=== PATIENT | male | born 1935 | race Caucasian/White ===

== ENCOUNTER 2017-06-04 12:58 | Inpatient (IN) | payer MEDICARE ==
[2017-06-04 13:25] VITALS: BP 131/64
[2017-06-04] MEDS ORDERED: Haloperidol Lactate 5 mg/mL 1mL Vial ONE (14:00)
[2017-06-04] MEDS ORDERED: Haloperidol Lactate 5 mg/mL 1mL Vial IM ONE (15:00)
[2017-06-04] MEDS ORDERED: Maalox 30 mL Cup PO PRN (15:45)
[2017-06-04] MEDS ORDERED: Magnesium Hydroxide (MOM) 30 mL UDC PO PRN (15:45)
[2017-06-05] MEDS: Multivitamin Tab PO SCH (08:41)
--- NOTE | 2017-06-05 10:50 | History & Physical ---
ADMIT DATE: 06/05/2017 INTERNAL MEDICINE CONSULT REFERRING PHYSICIAN: Dr. Hackett. REASON FOR CONSULT: Medical management. HISTORY OF PRESENT ILLNESS: The patient is an 82-year-old male with history of Alzheimer's dementia, cirrhosis per medical records, who was wandering away from [facility] where he lives and was transferred to a local ER where he was evaluated and monitored. Apparently, there was also aggressive behavior towards staff, but no other information was given. The patient has been transferred to this facility and admitted to the [facility] for further management and care. He is currently sitting in a Radha chair, refusing to provide any history. He is asleep and appears to be comfortable. PAST MEDICAL HISTORY: As noted above, presumed glaucoma. PAST SURGICAL HISTORY: Unknown. FAMILY HISTORY: Unknown, but likely noncontributory to this admission. SOCIAL HISTORY: Unknown. He lives in a snf facility. ALLERGIES: NKDA. OUTPATIENT MEDICATIONS: Docusate sodium 100 mg every day, Xalatan drops 1 drop to each eye every day. REVIEW OF SYSTEMS: A good review of systems was not able to be done given patient's condition. PHYSICAL EXAMINATION: VITAL SIGNS: Temperature 98.3, pulse 78, respirations 20, BP 121/66, satting 98% on room air. GENERAL: He is a well-developed, thin, elderly male who appears to be in no acute distress. He is asleep, refusing to answer questions. HEENT: Normocephalic, atraumatic. NECK: No JVD or LAD. No carotid bruits. CARDIOVASCULAR: Regular rate and rhythm without any murmurs. LUNGS: Clear to auscultation bilaterally. ABDOMEN: Soft, supple. It is nontender, nondistended. There is normoactive bowel sounds. SKIN: There is skin ecchymosis on both lower extremities. There are abrasions on the right lateral aspect of the leg and also on the left lateral and medial aspect of the leg close to the knee. There is also an abrasion on the left upper extremity. All of these abrasions appear to be noninfected and clean. LABORATORY DATA: See from the ER, his platelet count is 134, hematocrit is 35 with an MCV of 105. White count 5.2. Urinalysis was essentially within normal limits. Ammonia level 18. Urine toxicology was negative. BUN 21, chloride 104, CO2 26, glucose 120, sodium 142 with a gap of 17. Of note, he was given 1 liter of normal saline. DIAGNOSTICS: There was a CT of the head done with no results available at this time. ASSESSMENT: 1. Acute psych decompensation. 2. Alzheimer's dementia with behavioral disorder. 3. History of cirrhosis. 4. Mild dehydration with elevated anion gap. 5. Microcytic anemia. PLAN: The patient has been admitted to the [facility] floor for further psychiatric treatment and management. The patient will be kept on his current medications as scheduled. I will start him on folic acid, thiamine and will also ask for Silvadene cream to be placed twice a day on his skin abrasions. Will encourage increase water/fluid intake. [facility]# [id number] MTDAngelica
--- NOTE | 2017-06-06 02:31 | Psychosocial Evaluation ---
DATE OF SERVICE: 06/05/2017 JUSTIFICATION FOR HOSPITALIZATION: An 82-year-old male brought to the hospital, apparently was combative, struck out at multiple staff members. Required emergency medications. On [id number], the patient is refusing interview, not speaking with me. I have very little information at this time. It is unclear if he has an underlying history of dementia and this is the first time he is at the hospital. He is currently on hold 5150. PAST PSYCHIATRIC HISTORY: Unknown. FAMILY HISTORY: Unknown. SOCIAL HISTORY: The patient refusing to answer, but he has an address in the [facility]. It is unclear what his social support system is. There is a listed on the face sheet. MEDICATIONS: Noted. Currently on p.r.n. medications. He did get an emergency order of medications yesterday. MENTAL STATUS EXAMINATION: Stated age. Sleeping, but arousable, refusing to speak with me. Thought processes unknown. Thought content unknown. Unable to assess. Insight and judgment diminished. Impulse control is questionable to poor. PROVISIONAL DIAGNOSES: Noted history of dementia. Under medical: Chronic liver disease with cirrhosis, hypertension, congestive heart failure, unsteady balance. ASSESSMENT: The patient requiring inpatient hospitalization, unruly, agitated behaviors, refusing to speak with me. PLAN: We will add Aricept and Namenda given his documented history of dementia. We will continue to monitor. The patient may need antipsychotic medications if he remains unruly and combative, but we will try to avoid if possible. TREATMENT PLAN: Includes group as well as milieu therapy. CONDITIONS FOR DISCHARGE: Improved mood, improved affect, better control of his agitation. [facility]# [id number]
[2017-06-06] MEDS: Multivitamin Tab PO SCH (08:57)
[2017-06-06] MEDS ORDERED: Magnesium Hydroxide (MOM) 30 mL UDC PO PRN (11:54)
[2017-06-07] MEDS: Multivitamin Tab PO SCH (08:11)
--- NOTE | 2017-06-07 09:32 | Progress Notes ---
DATE: SUBJECTIVE: The patient was seen, chart reviewed, and discussed with staff. The patient continues to be quite irritable, confused, unable to answer questions in a coherent manner. Continues to be disoriented on all spheres. He has, however, been compliant with medications and generally redirectable on the unit. PLAN: The patient continues to be very confused, disoriented, so that he will require inpatient care center treatment. We will monitor patient on a daily basis for response and titrate meds as needed. JOB# [id number]
--- NOTE | 2017-06-07 22:22 | Progress Notes ---
DATE: SUBJECTIVE: The patient was seen, chart reviewed and discussed with staff. The patient continues to be very irritable, confused, disorganized, unable to answer questions in a meaningful manner. He has, however, been compliant with medications. PLAN: The patient continues to be very confused, unable to make a safe or realistic discharge plan. It was felt that he will require continued inpatient care for stabilization and treatment. We will monitor patient on a daily basis for his response to medications and titrate as needed. [facility]# [id number]
[2017-06-08] MEDS: Multivitamin Tab PO SCH (09:14)
--- NOTE | 2017-06-09 02:43 | Progress Notes ---
DATE: 06/08/2017 SUBJECTIVE: Case was discussed with staff of the patient and reviewed records. This is an 82-year-old male who was admitted on 06/04/2017. He was combative, striking out at multiple staff members, requiring emergency medication, refusing interview, not speaking, very little information when I talked to him, he was hard of hearing, unable to participate in a meaningful conversation. The staff reports he does not eat well and sleep varies. He continues to be unpredictable, impulsive, needing redirection, asking to be discharged; however, he is still not ready to go because of his combative, aggressive behavior. He has been on Aricept 5 mg at bedtime with no side effects, no sedation, no nausea and he lives in ____ senior care and we will continue outpatient group therapy, milieu therapy, adjusting the medication as needed. The patient's hold was extended yesterday on the ground of danger to self and others and we will continue the patient in group therapy, milieu therapy, adjust medication as needed. JOB# [id number]
[2017-06-09] MEDS: Multivitamin Tab PO SCH (08:12)
--- NOTE | 2017-06-09 23:07 | Progress Notes ---
DATE: 06/09/2017 SUBJECTIVE: Case was discussed with staff of the patient and reviewed records. The patient continues to be confused, continues to have poor insight, he is demented, confused, unable to make safe plan for self-care, needing redirection. The staff reports that he is not eating much. He is a poor historian. PLAN: I will be initiating Remeron on him to help with his appetite and depression that may be contributing to his lack of appetite. I will start him at 7.5 mg at bedtime. So far no side effects with the rest of his medications. We will continue working also on placement for this patient and we will continue to work with the patient in group therapy, milieu therapy, adjust medication as needed. JOB# [id number]
[2017-06-10] MEDS: Multivitamin Tab PO SCH (08:45)
--- NOTE | 2017-06-10 23:06 | Progress Notes ---
DATE: 06/10/2017 SUBJECTIVE: Case was discussed with staff of the patient and reviewed records. The patient continues to be confused, demented, unable to make safe plan for self-care. Continues to have poor insight. Continues to be unable to make safe plan for self-care. We are working on placement for this patient. Also, I will be adding Remeron to his medication, which I added yesterday. Apparently, the computer did not take it for some reason, I do not see it on the computer. His lab work shows only high blood sugar at 97. We will continue the patient in group therapy, milieu therapy, and adjust the medications as needed. JOB# [id number]
[2017-06-11] MEDS: Multivitamin Tab PO SCH (08:21)
--- NOTE | 2017-06-11 22:33 | Progress Notes ---
DATE: 06/11/2017 Case was discussed with staff of the patient, reviewed records. The patient continues to be unpredictable, impulsive, very confused. He had ____ yesterday and during the program with grave disability, continues to have poor insight. No side effects with the medication, no sedation, no nausea, no extrapyramidal symptoms. We will continue to work with the patient in group therapy, milieu therapy, and adjust medications as needed. JOB# [id number]
[2017-06-12] MEDS: Multivitamin Tab PO SCH (08:42)
--- NOTE | 2017-06-12 23:08 | Progress Notes ---
DATE: 06/12/2017 The case was discussed with staff of the patient, reviewed records. The patient continues to be confused, demented. Continues to be unable to make safe plan for self-care. Continues to have poor insight about the whole process. He is sleeping well, eating well, has to be prompted though. He has been compliant with the medication with no side effects, no sedation, no nausea, and no extrapyramidal symptoms. I will be increasing his Namenda dose to 5 mg twice a day, also on Aricept 5 mg at bedtime and Remeron 75 mg at bedtime. I will continue to work with the patient in group therapy, milieu therapy, adjust the medication as needed. JOB# [id number]
[2017-06-13] MEDS: Multivitamin Tab PO SCH (09:50)
[2017-06-13] MEDS ORDERED: Lactulose 10 Gm/15 mL 30mL UDC PO PRN (16:03)
[2017-06-13] MEDS ORDERED: Lactulose 10 Gm/15 mL 30mL UDC PO ONE (16:08)
--- NOTE | 2017-06-13 21:49 | Progress Notes ---
DATE: The patient was seen and evaluated. The patient's chart reviewed. She was initially brought in here. She is an 82-year-old female. She has struck out at multiple staff members and required emergent medications. On today's [id number] evaluation, the patient continues to be disorganized, confused in a Radha chair, easily derailed conversation. MENTAL STATUS EXAMINATION: Easily derails conversation, disengaged. ASSESSMENT AND PLAN: The patient is an 82-year-old male who continues to need a lot of redirection for simple redirections, will continue with primary psychiatrist's treatment plan and goals, which included the following: Aricept 5 mg a day, Namenda 5 mg p.o. b.i.d., mirtazapine 7.5. JOB# [id number]
--- NOTE | 2017-06-14 09:28 | Diagnostic Imaging Report ---
KUB single view HISTORY: Abdominal pain. COMPARISON: None FINDINGS: Gas distended loops of bowel are seen including small bowel loops and there is of small bowel wall thickening. Postsurgical change right upper quadrant are noted. Degenerative changes of spine are noted with scoliosis. IMPRESSION: Gaseous distended loops of bowel including primarily small bowel loops with areas of small bowel wall thickening. Findings may be due to infectious/inflammatory process of the small bowel. A partial distal obstructive small bowel process cannot be excluded. Clinical correlation follow-up is recommended. If indicated short-term follow-up CT with oral contrast may be obtained for further assessment. Evidence of prior cholecystectomy.
[2017-06-14] MEDS: Multivitamin Tab PO SCH (09:32)
--- NOTE | 2017-06-14 19:46 | Psychosocial Evaluation ---
DATE OF SERVICE: 06/14/2017 The patient was seen and evaluated. The patient's chart reviewed. No acute reported overnight by the nursing staff. The patient's nursing staff reporting the patient has been stable. On uuri-mi-efmu evaluation, the patient observed, continued to be residual, disorganized on the Radha chair who becomes easily irritable upon awakening and refused to be engaged. MENTAL STATUS EXAMINATION: Disengaged and disorganized. ASSESSMENT AND PLAN: An 82-year-old male with severe dementia with behavior disturbances. We will continue with the current medications, which include Namenda, Aricept, and mirtazapine to continue to target the patient still residual behavior disturbances associated with the dementia. JOB# [id number]
[2017-06-15] MEDS: Multivitamin Tab PO SCH (08:09)
--- NOTE | 2017-06-15 23:34 | Progress Notes ---
DATE: 06/15/2017 Case discussed with staff of the patient, reviewed records. The patient did have abdominal KUB that showed inflammatory process small-bowel, partial distal suspected small-bowel process cannot be excluded. Clinical correlation and followup is recommended. I recommended also CT with oral contrast may be obtained for further assessment. No evidence of prior cholecystectomy. The patient was seen by Dr. Cook. So far, the patient continues to be confused and isolating, continues to be unpredictable, impulsive, needing redirection, and disorganized, but he is demented and confused. No side effects of the medication. No sedation. No nausea. He is on Aricept 5 mg at bedtime, Namenda 5 mg twice a day since 06/12/2017, and he is on Remeron 7.5 mg at bedtime. We will continue to have the patient in group therapy, milieu therapy, and adjust medications as needed. JOB# [id number]
[2017-06-16] MEDS: Multivitamin Tab PO SCH (09:58)
--- NOTE | 2017-06-16 12:40 | Diagnostic Imaging Report ---
Exam: CT examination abdomen pelvis HISTORY: Abdominal distention pain Total DLP equals 514 CTDI equals and 0.0. Findings: Multiple contiguous thin section of the abdomen pelvis were obtained from lower thorax to pubic symphysis without the administration of contrast material therefore the study is limited. No prior studies available comparison. The study demonstrates the predominantly left basilar pneumonia with superimposed effusion. Right basilar pneumonic infiltrate is noted. There is a large amount of ascitic fluid in the abdomen. Cirrhotic changes of liver parenchyma. There is evidence of previous cholecystectomy. Diffuse vascular calcification identified. The spleen is enlarged. The stomach distended with fluid and air content Large amount of fecal content is noted throughout the colon. The pancreas demonstrates calcifications most likely from prior inflammatory changes The kidneys demonstrate no evidence of obstructive uropathy. There is evidence for nonobstructing left renal calculus measuring 1 mm diameter. Distention small bowel loops consistent with ileus. There is evidence of diverticular disease without diverticulitis. The urinary bladder is distended. There is evidence for a left inguinal mass extending into the scrotum with a multiple metallic clips most likely represent prior surgery clinical correlation is recommended Bony structures demonstrate no evidence for lytic or blastic changes. Degenerative changes of lumbar sacral spine appreciated. 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
[2017-06-16] MEDS: POLYETHYLENE GLYCOL 3350 17 GM PACK PO SCH (13:49)
[2017-06-16] MEDS ORDERED: Fleet Enema 135 mL RC PRN (18:12)
[2017-06-16] MEDS: Albuterol/Ipratropium Neb 3 ML AERS HHN SCH ×2 (19:00→23:27)
--- NOTE | 2017-06-16 21:56 | Progress Notes ---
DATE: 06/16/2017 Case was discussed with staff of the patient, reviewed records. The patient is having a CT scan without contrast today as recommended by the Radiology Department. His son came to take him yesterday; however, I have the staff explained to him the situation. It can be with oral contrast to rule out any obstruction. The patient continues to be confused, demented, unable to participate in meaningful conversation or make safe plan for self-care and so far he is compliant with the medication with no side effects and we will continue to work with the patient in group therapy, milieu therapy, adjust medication as needed. JOB# [id number]
[2017-06-17] MEDS: Albuterol/Ipratropium Neb 3 ML AERS HHN SCH ×6 (02:22→22:36)
[2017-06-17] MEDS: POLYETHYLENE GLYCOL 3350 17 GM PACK PO SCH (08:49)
[2017-06-17] MEDS: Multivitamin Tab PO SCH (08:50)
--- NOTE | 2017-06-17 22:05 | Progress Notes ---
DATE: 06/17/2017 SUBJECTIVE: Case was discussed with staff of the patient and reviewed records. The patient has a CT of the abdomen and pelvis because of abdominal distention and pain that showed also left basilar pneumonia with superimposed effusion and right basilar pneumonia and infiltrate was noted, large amount of ascitic fluid in the abdomen, cirrhotic changes in the liver parenchyma with evidence of previous cholecystectomy and also large amount of fecal content is noted throughout the colon, so at this point the patient is still confused, unable to make a safe plan for self-care. He is on Aricept 5 mg at bedtime that was initiated by Dr. Rangel. He is on antibiotic started by Dr. Cook yesterday, Levaquin 500 mg daily and Namenda 5 mg twice a day and Remeron 7.5 mg at bedtime with multivitamin and so far no side effects with the medication, no sedation, no nausea. So the patient is currently not ready to go to a lesser level of care because of his complicating medical conditions that need to be addressed by Dr. Cook as Dr. Cook is taking care of it and we will continue to work with the patient in group therapy, milieu therapy, adjust medication as needed. JOB# [id number]
[2017-06-18] MEDS: Albuterol/Ipratropium Neb 3 ML AERS HHN SCH ×6 (03:39→23:28)
[2017-06-18] MEDS: POLYETHYLENE GLYCOL 3350 17 GM PACK PO SCH (08:36)
[2017-06-18] MEDS: Multivitamin Tab PO SCH (08:36)
[2017-06-18] MEDS ORDERED: Probiotic Screen MC PRN (15:30)
[2017-06-19] MEDS: Albuterol/Ipratropium Neb 3 ML AERS HHN SCH ×6 (03:21→23:36)
--- NOTE | 2017-06-19 03:53 | Progress Notes ---
DATE: 06/18/2017 Case discussed with staff and the patient, reviewed records. The patient had pneumonia. He also had some obstruction in his bowels, so at this point from a psychiatric point of view, he can go; however, I do not have any plan to discharge him until Dr. Cook who is his medical doctor decide that he is okay to go to a lesser level of care. The patient is sleeping better, eating better. He is still confused, demented, unable to make safe plan for self-care. He was started on antibiotic. He is compliant with the medication, no side effects, no sedation, no nausea and he is on Aricept 5 mg at bedtime and Namenda 5 mg twice a day that was increased last week and Remeron 7.5 mg at bedtime. I will continue to work with the patient in group therapy, milieu therapy, and adjust medications as needed. JOB# [id number]
[2017-06-19] MEDS: Lactobacillus Rhamnosus GG 15 Billion CFU CAP.SPRINK PO SCH (08:48)
[2017-06-19] MEDS: POLYETHYLENE GLYCOL 3350 17 GM PACK PO SCH (08:48)
[2017-06-19] MEDS: Multivitamin Tab PO SCH (08:49)
--- NOTE | 2017-06-19 11:44 | Discharge Summary ---
DATE OF DISCHARGE: 06/19/2017 IDENTIFYING INFORMATION: The patient is an 82-year-old male. HISTORY OF PRESENT ILLNESS: The patient was brought to the hospital because of being combative and struck out at staff members, required emergency medication. He came from [place]. According to the staff, refusing interview, not speaking with the psychiatrist Dr. Rangel information given. He is demented, confused. COURSE IN THE HOSPITAL: The patient was started on Aricept 5 mg at bedtime and later on I added Namenda, increased the dose to 5 mg twice a day, also add Remeron 75 mg at bedtime. The patient became more calm and cooperative. He was sleeping well, eating well. We tried to discharge him; however, he was found to have bowel obstruction, ascites and basal pneumonia and I talked to Dr. Cook that was a few days prior to his discharge. I talked to him this morning prior to discharge and I asked him if he is ready to go to a lesser level of care. He said there is nothing more he can do for him that he already gave him all antibiotic. He needs to follow up with his doctor. The patient was not acting anyway dangerous, sleeping well, eating well. So Dr. Cook not felt the patient needed to stay any longer be moved to the med-surg unit. He put him on Levaquin 500 mg daily and patient also was on multivitamin and Flomax, thiamine, docusate for his bowel. he could be discharged to a lesser level of care with the approval of Dr. Cook and his recommendations will be followed. FINAL DIAGNOSES: AXIS I: Dementia with behavior disturbances. MEDICAL DIAGNOSES: As per Dr. Cook. The patient had a bowel obstruction, mild and infection, lung infection. The patient will follow up with the psychiatrist, primary care physician and GI. EXPECTED OUTCOME: Stable if the patient complies with the above. JOB# [id number]
[2017-06-20] MEDS: Albuterol/Ipratropium Neb 3 ML AERS HHN SCH ×4 (03:35→14:48)
[2017-06-20] MEDS: Lactobacillus Rhamnosus GG 15 Billion CFU CAP.SPRINK PO SCH (09:11)
[2017-06-20] MEDS: POLYETHYLENE GLYCOL 3350 17 GM PACK PO SCH (09:11)
[2017-06-20] MEDS: Multivitamin Tab PO SCH (09:11)
--- NOTE | 2017-06-20 15:51 | Progress Notes ---
DATE: 06/20/2017 Case was discussed with staff of patient, reviewed records. Also discussed the care with his son yesterday as he was running about places that he can take him. He refused to have him go to [facility] or [facility] that accepted him and I gave him some ideas, discussed with him the situation and the medication he takes. The patient is very frail, cannot even take care of his basic needs. He is unable to carry on a conversation. Also, I discussed with him his medical condition. As per Dr. Cook, he has bowel obstruction, ascites. He is unpredictable, confused, easily agitated, and general anesthesia he was doing better, was supposed to go. He is on only Remeron 75 mg at bedtime and Namenda 5 mg twice a day with no side effects and he is not on any antipsychotic and working on discharge plan as he is ready to go to a lesser level of care. We will continue to work with the patient in group therapy, milieu therapy, adjust medication as needed. JOB# [id number]
[2017-06-21 14:13] LABS: HEMATOCRIT 33.7 % (41.0-60); HEMOGLOBIN 11.6 gm/dL (12-16); MEAN CORPUSCULAR HEMOGLOBIN 35.9 pg (27.0-31.0); MEAN CORPUSCULAR HGB CONC 34.5 pg (28.0-36.0); PLATELET COUNT 66 Th/cmm (150-400); RED BLOOD COUNT 3.24 Mil/cmm (3.80-5.80); RED CELL DISTRIBUTION WIDTH 14.5 % (11.5-20.0); WHITE BLOOD COUNT 4.9 Th/cmm (4.8-10.8)
[2017-06-21 14:21] LABS: MANUAL DIFF REQUIRED? YES
[2017-06-21 14:26] LABS: ALB/GLOB RATIO 0.8 (1.0-1.8); ALBUMIN 2.4 gm/dL (4.2-5.5); ALKALINE PHOSPHATASE 114 U/L (34-104); ANION GAP 10.5 (7.0-16.0); BILIRUBIN,TOTAL 2.5 mg/dL (0.3-1.0); BUN - UREA NITROGEN 43 mg/dL (7-25); CALCIUM SERUM 9.3 mg/dL (8.6-10.3); CARBON DIOXIDE 23.2 mEq/L (21.0-31.0); CHLORIDE 113 mEq/L (98-107); GLUCOSE 96 mg/dL (70-105); POTASSIUM SERUM 3.7 mEq/L (3.5-5.1); SGOT 93 U/L (13-39); SGPT/ALT 41 U/L (7-52); SODIUM SERUM 143 mEq/L (136-145); TOTAL PROTEIN,SERUM 5.6 gm/dL (6.0-8.3)
[2017-06-21 14:34] LABS: BAND NEUTROPHILE 8 % (0-10); LYMPHOCYTE 3 % (20-50); MONOCYTE 3 % (2-10); NEUTROPHILS 86 % (40-80); PLATELET ESTIMATE DECREASED PLATELETS (NORMAL); TOTAL CELLS COUNTED 100
== END 2017-06-20 18:16 | DRG 885 ==
LOC: GERO 12:58
PROVIDERS: ADMIT Psychiatry & Neurology Psychiatry; ATTEND Psychiatry & Neurology Psychiatry
DX: F23 Brief psychotic disorder (principal); F02.81 Dementia in other diseases classified elsewhere, unspecified severity, with behavioral disturbance; I11.0 Hypertensive heart disease with heart failure; J18.9 Pneumonia, unspecified organism; K56.609 Unspecified intestinal obstruction, unspecified as to partial versus complete obstruction; R18.8 Other ascites; G30.9 Alzheimer's disease, unspecified; I50.9 Heart failure, unspecified; E86.0 Dehydration; K74.60 Unspecified cirrhosis of liver; D50.9 Iron deficiency anemia, unspecified; R26.81 Unsteadiness on feet; Z90.49 Acquired absence of other specified parts of digestive tract
CPT/HCPCS: 36415-UA; 74000-TC; 80053-TC; 82948-90; 85007-TC; 85025-TC; 85027-TC; 94640; 94760; 97530; J1200; J1630; J2060; X3904; Z7610

== ENCOUNTER 2017-06-20 18:33 | Inpatient (IN) | payer MEDICARE ==
[2017-06-20] MEDS ORDERED: Sodium Chloride 0.9% 1,000 ML IV ONE ×3 (19:28→22:57)
[2017-06-20] MEDS ORDERED: Levofloxacin 500mg/100mL 500 MG/100 ML BAG IV SCH (19:30)
[2017-06-20 20:13] VITALS: BP 63/38
[2017-06-20] MEDS ORDERED: Fleet Enema 135 mL RC PRN (20:24)
[2017-06-20] MEDS: cefTRIAXone 1 GM in Sodium Chloride 0.9% 50 ML IV SCH (21:32)
[2017-06-20] MEDS ORDERED: Maalox 30 mL Cup PO PRN (21:53)
[2017-06-20] MEDS: Azithromycin 500 MG in Sodium Chloride 0.9% 250 ML IV SCH (22:38)
[2017-06-20] MEDS ORDERED: Lactated Ringer 1,000 ML IV SCH (23:00)
[2017-06-21] MEDS: Albuterol/Ipratropium Neb 3 ML AERS HHN SCH ×3 (07:12→18:59)
[2017-06-21] MEDS: Lactobacillus Rhamnosus GG 15 Billion CFU CAP.SPRINK PO SCH (08:54)
[2017-06-21] MEDS: Multivitamin Tab PO SCH (08:55)
[2017-06-21] MEDS: POLYETHYLENE GLYCOL 3350 17 GM PACK PO SCH (08:55)
--- NOTE | 2017-06-21 09:44 | Diagnostic Imaging Report ---
Portable chest x-ray HISTORY: Pneumonia The heart appears enlarged. Density noted over the right and left lower hemithoracic region suggesting pleural effusions. Hazy infiltrates suggested within the right lung. IMPRESSION: 1. Findings suggesting probable bilateral pleural effusions along with infiltrate within the right lung.
[2017-06-21] MEDS ORDERED: Albuterol/Ipratropium Neb 3 ML AERS HHN SCH (14:37)
[2017-06-21] MEDS ORDERED: Sodium Chloride 0.9% 250 ML IV ONE (14:51)
[2017-06-21 18:10] LABS: URINE MICROSCOPIC INDICATED? YES; URINE SOURCE FOLEY PORT
[2017-06-21 18:11] LABS: URINE BILIRUBIN NEGATIVE (NEGATIVE); URINE BLOOD NEGATIVE (NEGATIVE); URINE GLUCOSE (UA) NEGATIVE (NEGATIVE); URINE KETONE NEGATIVE (NEGATIVE); URINE LEUKOCYTE ESTERASE NEGATIVE (NEGATIVE); URINE NITRATE NEGATIVE (NEGATIVE); URINE PROTEIN TRACE mg/dL (NEGATIVE)
[2017-06-21] MEDS: D5-0.9%NS 1,000 ML IV SCH (18:12)
[2017-06-21 18:50] LABS: URINE BACTERIA FEW /hpf (NONE SEEN); URINE CLARITY CLEAR (CLEAR); URINE COLOR AMBER; URINE EPITHELIAL CELLS OCCASIONAL /lpf (FEW); URINE RBC 0-2 /hpf (0-5)
[2017-06-21] MEDS ORDERED: Norepinephrine 4 mg/4mL Vial IV ONE (19:37)
--- NOTE | 2017-06-21 20:06 | History & Physical ---
ADMIT DATE: 06/20/2017 HISTORY OF PRESENT ILLNESS: This is an 82-year-old male with past medical history of psychosis who was [facility] because of hypotension. A few hours prior to admission, the patient was found to be very lethargic by the [facility] staff. His systolic blood pressure was in the 60s. He was then transferred to ICU. PAST MEDICAL HISTORY: 1. Psychosis. 2. Alzheimer dementia. 3. Ascites. 4. Liver cirrhosis. 5. Ileus. 6. Diverticulosis. CURRENT MEDICATIONS: He is currently on acetaminophen, albuterol/ipratropium, azithromycin, ceftriaxone, docusate sodium, donepezil, folic acid, lorazepam, tamsulosin, vitamin B1, and zolpidem. ALLERGIES: No known drug allergies. SOCIAL AND FAMILY HISTORY: I was not able to obtain from the patient because he is very lethargic at the present time. REVIEW OF SYSTEMS: Again, I was not able to decipher this directly from the patient because of present mental status. PHYSICAL EXAMINATION: GENERAL: The patient is very stuporous, poorly responsive, mild tachypnea. VITAL SIGNS: Blood pressure is 92/44, pulse 94, and temperature 94 degrees. SKIN: Very poor turgor, warm, no rash, no jaundice appreciated. HEENT: Head normocephalic, atraumatic. Eyes: Extraocular muscles intact. Pupils equal, round, reactive to light and accommodates. Anicteric sclerae. Pale conjunctivae. Nose, midline nasal septum. Mouth: Dry mucosa. Poor dentition. NECK: Supple, no adenopathy, no thyromegaly, no bruits. Trachea palpated in the midline. CHEST AND CARDIOVASCULAR: S1, S2. No rub, murmur, no gallop appreciated. Point of maximal impulse fifth intercostal space, left midclavicular line. No abdominal or femoral bruits appreciated. LUNGS: Equal expansion. No use of accessory muscles. No supraclavicular retractions. Decreased breath sounds, scattered rhonchi, no rales nor wheezes appreciated. ABDOMEN: Mildly globular, soft. Positive for bowel sounds. No bruits either diastolic or systolic. RECTAL: Lax sphincter tone. GENITOURINARY: Normal appearing male genitalia. MUSCULOSKELETAL: No effusions present in his joints with limited range of motion. EXTREMITIES: No evidence of edema, cyanosis, or clubbing with palpable femoral, popliteal, and dorsalis pedis pulses. NEUROLOGIC: The patient remains stuporous, so I was not able to pursue further my neuro exam. LABORATORY DATA: Did reveal a white count of 4.9, hemoglobin 11.6, hematocrit 33.7, and platelets 66. Sodium 143, potassium 3.7, chloride 113, CO2 23, glucose 96, BUN 43, creatinine 1, calcium 9.3, albumin 2.4, and total bilirubin 2.5. IMPRESSION: 1. Shock, possibly septic in nature. 2. Sepsis could be from urinary tract infection or even aspiration pneumonia. 3. Psychosis. 4. Alzheimer dementia. 5. Ascites. 6. Liver cirrhosis. 7. Ileus. 8. Diverticulitis. 9. Severe malnutrition. 10. 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 PLAN: 1. Continue with IV fluids. 2. Pressors as needed. 3. Turner culture. 4. Broad-spectrum antibiotics. 5. Steve Naylor. JOB# [id number]
[2017-06-21] MEDS: cefTRIAXone 1 GM in Sodium Chloride 0.9% 50 ML IV SCH (21:20)
[2017-06-21] MEDS: Azithromycin 500 MG in Sodium Chloride 0.9% 250 ML IV SCH (21:22)
[2017-06-22] MEDS: D5-0.9%NS 1,000 ML IV SCH ×2 (02:12→09:36)
[2017-06-22 05:17] LABS: MANUAL DIFF REQUIRED? YES; MEAN PLATELET VOLUME 6.8 fl; RED BLOOD COUNT 3.26 Mil/cmm (3.80-5.80)
[2017-06-22 05:26] LABS: HEMOGLOBIN 11.9 gm/dL (12-16); MEAN CELL VOLUME 104.3 fl (80-99); MEAN CORPUSCULAR HEMOGLOBIN 36.4 pg (27.0-31.0); MEAN CORPUSCULAR HGB CONC 34.9 pg (28.0-36.0); RED CELL DISTRIBUTION WIDTH 14.7 % (11.5-20.0)
[2017-06-22 05:28] LABS: PLATELET COUNT 114 Th/cmm (150-400); WHITE BLOOD COUNT 12.4 Th/cmm (4.8-10.8)
[2017-06-22 05:34] LABS: ALB/GLOB RATIO 0.8 (1.0-1.8); ALBUMIN 2.5 gm/dL (4.2-5.5); ALKALINE PHOSPHATASE 119 U/L (34-104); ANION GAP 8.2 (7.0-16.0); BUN - UREA NITROGEN 44 mg/dL (7-25); CALCIUM SERUM 9.1 mg/dL (8.6-10.3); CARBON DIOXIDE 23.3 mEq/L (21.0-31.0); CHLORIDE 116 mEq/L (98-107); CREATININE - SERUM 1.1 mg/dL (0.7-1.3); GLUCOSE 157 mg/dL (70-105); MAGNESIUM 2.4 mg/dL (1.9-2.7); PHOSPHOROUS 3.9 mg/dL (2.5-5.0); POTASSIUM SERUM 3.5 mEq/L (3.5-5.1); SGOT 94 U/L (13-39); SGPT/ALT 44 U/L (7-52); SODIUM SERUM 144 mEq/L (136-145); TOTAL PROTEIN,SERUM 5.8 gm/dL (6.0-8.3)
[2017-06-22] MEDS: Albuterol/Ipratropium Neb 3 ML AERS HHN SCH ×4 (08:03→19:59)
[2017-06-22 08:40] LABS: BAND NEUTROPHILE 6 % (0-10); LYMPHOCYTE 3 % (20-50); MONOCYTE 1 % (2-10); NEUTROPHILS 90 % (40-80); PLATELET ESTIMATE SLIGHT DECREASED (NORMAL); TOTAL CELLS COUNTED 100
[2017-06-22] MEDS: Lactobacillus Rhamnosus GG 15 Billion CFU CAP.SPRINK PO SCH (09:08)
[2017-06-22] MEDS: POLYETHYLENE GLYCOL 3350 17 GM PACK PO SCH (09:08)
[2017-06-22] MEDS: Multivitamin Tab PO SCH (09:08)
--- NOTE | 2017-06-22 09:11 | Diagnostic Imaging Report ---
CHEST X-RAY: AP view INDICATION: Shortness of breath COMPARISON: 06/21/2017 FINDINGS: Persist and CHF and bilateral infiltrates and effusions are noted, left greater than right. Borderline prominent heart is noted. IMPRESSION: No significant change in pulmonary status.
[2017-06-22] MEDS: metroNIDAZOLE 500mg/NS 100mL 500 MG/100 ML BAG IV SCH ×2 (12:47→23:55)
--- NOTE | 2017-06-22 13:36 | Consultation ---
Consult Note - Consult Note Service Date: 06/22/17 Referring Physician: Andriy Cook Consult Note: PHYSICIAN Consultation Note: Date of Admission: 06/20/17 Purpose of Consultation: Chief Complaint: dictated. Emeka, Juan Carlos Gonzales M.D. [id number]
--- NOTE | 2017-06-22 13:46 | Consultation ---
DATE OF CONSULTATION: 06/21/2017 PATIENT OF: Dr. Cook and Dr. Cunha. Thank you very much for this consultation. HISTORY OF PRESENT ILLNESS: The patient is an 82-year-old male who apparently was in the half-way, transferred to [facility] for agitated behavior and psychosis. The patient has developed hypotension at the [facility] and was admitted here to the acute side for further treatment and evaluation. The patient unable to give any history, kind of sounds congested and oxygenating well. His blood pressure was low, but he is improved with fluid challenge. The patient did have a CT of the abdomen a few days ago, shows some infiltrate in right lower lobe area and a large amount of feces and distended bladder. PAST MEDICAL HISTORY: Dementia and psychosis. SOCIAL HISTORY: Not available, but appears to have cirrhosis with some ascites on the CAT scan of the abdomen. PHYSICAL EXAMINATION: GENERAL: Awake, confused, nonverbal, not in acute distress. VITAL SIGNS: Temperature 96.4, pulse 81, respirations 16, blood pressure is 92/53, saturation is 91-93%. HEENT: Atraumatic, normocephalic. Pupils react to light and accommodation. Ears, nose and throat normal. NECK: Supple. No JVD. CHEST: There is rhonchi, mostly in the right base. HEART: Regular rate and rhythm. ABDOMEN: Soft. EXTREMITIES: No edema. DIAGNOSTIC DATA: The chest x-ray showed extensive bilateral infiltrates and some ascites, fluid probably going through by causing bilateral effusion. IMPRESSION: 1. Respiratory failure. 2. Pneumonia. 3. Weakness. 4. Possible liver cirrhosis. PLAN: 1. IV antibiotics. 2. Nebulizer treatment. 3. Pulmonary toilet. 4. Supportive care. 5. Labs and followup chest x-ray. If worsen, might need to go to ICU. We will put her on Ventimask for now and follow up ABGs. Thank you very much for this consultation. Prognosis is guarded. JOB# [id number]
[2017-06-22] MEDS ORDERED: Vancomycin HCl 1.5 GM in Sodium Chloride 0.9% 500 ML IV ONE (15:00)
[2017-06-22 15:39] LABS: ALLEN TEST Positive; pH 7.38 (7.35-7.45)
--- NOTE | 2017-06-22 15:43 | Cardiology ---
06/21/[address] Cook. M-MODE ECHOCARDIOGRAM: Mitral valve, anterior leaflet of mitral valve shows normal excursion, EF velocity. Posterior leaflet of the mitral valve shows normal excursion. Left ventricular posterior wall shows increased thickness, normal excursion. Interventricular septum shows increased thickness, normal excursion, hypertrophy of the left ventricle, ejection fraction 55%. Left atrium normal. Aortic root shows normal dimension, normal excursion of aortic leaflets. CONCLUSION: Hypertrophy of the left ventricle, ejection fraction 55%. 2D ECHO: Long axis view showed normal sized left ventricle with hypertrophy of the left ventricle. Left atrium normal. Aortic root shows normal dimension, normal excursion of aortic leaflets. Short axis view of mitral valve normal. Short axis view of aortic valve normal. Apical four chamber view showed normal sized left ventricle with hypertrophy of the left ventricle. Left atrium normal, right ventricular cavity, right atrium normal, no pericardial effusion. CONCLUSION: Hypertrophy of the left ventricle, ejection fraction 55%. Doppler study shows moderate left ventricular hypertrophy, mild tricuspid regurgitation, mild aortic regurgitation, trace mitral regurgitation. CONCLUSION: Hypertrophy of the left ventricle, mild tricuspid regurgitation, mild aortic regurgitation, trace mitral regurgitation. JOB# [id number]
[2017-06-22] MEDS ORDERED: KCL 20mEq/100mL Premix 20 MEQ/100 ML PIGGYBACK IV ONE (15:47)
[2017-06-22] MEDS: Azithromycin 500 MG in Sodium Chloride 0.9% 250 ML IV SCH (21:45)
--- NOTE | 2017-06-22 23:42 | Consultation ---
DATE OF CONSULTATION: 06/22/2017 INFECTIOUS DISEASE CONSULTATION REFERRING PHYSICIANS: Dr. Cook and Dr. Landon. REASON FOR CONSULTATION: Pneumonia. HISTORY OF PRESENT ILLNESS: The patient is an 82-year-old male with past medical history of psychosis, transferred from the [facility] to ICU because of hypotension and congestion. It was associated with lethargy. His systolic blood pressure dropped to 60, so he was transferred to the ICU for further evaluation and management. On initial evaluation, the patient's temperature was 97.2 degree Fahrenheit and WBC count was 12,400. Chest x-ray shows bilateral pleural effusion with infiltrate within the right lung. Nares shows positive for MRSA. Her MRSA screen is positive. The patient remains hypoxic now, very congested. The patient is a poor historian. PAST MEDICAL HISTORY: Include psychosis, Alzheimer dementia, ascites, liver cirrhosis, ileus, and diverticulosis. MEDICATIONS: As per medication reconciliation sheet. Antibiotics the patient is receiving are Rocephin and azithromycin. FAMILY HISTORY: Noncontributory. SOCIAL HISTORY: The patient lives at a nursing facility. No history of smoking or drug abuse. REVIEW OF SYSTEMS: The patient is a poor historian, confused, pleasant. So far, the patient has no fever or chills. The patient was hypotensive and hypoxic, very congested and cough present. PHYSICAL EXAMINATION: CURRENT VITAL SIGNS: Shows temperature is 96.4 degrees Fahrenheit, pulse is 98, respiration is 16, blood pressure 101/74, oxygen saturation is 98%. GENERAL: The patient is cachectic, not in acute distress. HEENT: Head is normocephalic, atraumatic. Oral cavity moist, pink tongue. Eyes: Pallor is present. No icterus. Pupils PERRLA, EOMI. NECK: Supple. No JVD, no carotid bruit. Trachea midline. CHEST: Bilateral breath sounds. Crackles present bilaterally. HEART: S1, S2 within normal limits. Regular rhythm. No murmur. No gallop. ABDOMEN: Soft, nontender, nondistended. Bowel sounds present. EXTREMITIES: No cyanosis, no clubbing, no edema. NEUROLOGIC: Alert and awake, but confused. LABORATORY DATA: WBC count is 12,400, hemoglobin 11.9, hematocrit 34, platelets are 114,000, neutrophils 90%. Sodium 144, potassium 3.5, chloride 116, bicarbonate is 23.3, BUN is 44, creatinine 1.1, glucose is 157. Lactic acid is 2.83 and it was 2.61 in the beginning. Chest x-ray shows pleural effusion bilaterally. There is also infiltrate in the right lung. IMPRESSION: 1. Pneumonia, complicated aspiration, cannot rule out healthcare-related pneumonia. 2. Severe sepsis with lactic acidosis, hypotension and septic shock. 3. Dementia. 4. Psychosis. 5. Ascites. 6. Liver cirrhosis. 7. Ileus. 8. Diverticulosis. RECOMMENDATIONS: We will continue Zithromax. Start Zosyn and vancomycin IV. ADDENDUM: MRSA screen was positive. Thank you, Dr. Cook, for involving me in the care of this patient. JOB# [id number]
[2017-06-23] MEDS: D5-0.9%NS 1,000 ML IV SCH (03:00)
[2017-06-23] MEDS: metroNIDAZOLE 500mg/NS 100mL 500 MG/100 ML BAG IV SCH ×3 (04:38→20:28)
[2017-06-23 05:36] LABS: EOSINOPHILE ABSOLUTE 0.1 Th/cmm (0.1-0.4); HEMATOCRIT 36.4 % (41.0-60); HEMOGLOBIN 12.7 gm/dL (12-16); LYMPHOCYTE ABSOLUTE 0.4 Th/cmm (1.5-3.0); MANUAL DIFF REQUIRED? YES; MEAN CELL VOLUME 103.9 fl (80-99); MEAN CORPUSCULAR HEMOGLOBIN 36.4 pg (27.0-31.0); MEAN PLATELET VOLUME 6.5 fl; MONOCYTE ABSOLUTE 0.4 Th/cmm (0.3-1.0); NEUTROPHILE ABSOLUTE 17.8 Th/cmm (1.8-8.0); PLATELET COUNT 79 Th/cmm (150-400); RED BLOOD COUNT 3.51 Mil/cmm (3.80-5.80); RED CELL DISTRIBUTION WIDTH 15.2 % (11.5-20.0)
[2017-06-23 05:50] LABS: ANION GAP 10.1 (7.0-16.0); BUN - UREA NITROGEN 44 mg/dL (7-25); CALCIUM SERUM 8.9 mg/dL (8.6-10.3); CARBON DIOXIDE 22.5 mEq/L (21.0-31.0); CHLORIDE 116 mEq/L (98-107); CREATININE - SERUM 1.2 mg/dL (0.7-1.3); GLUCOSE 151 mg/dL (70-105); MAGNESIUM 2.2 mg/dL (1.9-2.7); POTASSIUM SERUM 3.6 mEq/L (3.5-5.1); SODIUM SERUM 145 mEq/L (136-145)
[2017-06-23 05:55] LABS: WHITE BLOOD COUNT 18.7 Th/cmm (4.8-10.8)
[2017-06-23 06:21] LABS: BAND NEUTROPHILE 22 % (0-10); EOSINOPHIL 1 % (0-5); LYMPHOCYTE 3 % (20-50); MONOCYTE 1 % (2-10); NEUTROPHILS 73 % (40-80); TOTAL CELLS COUNTED 100
[2017-06-23 06:22] LABS: PLATELET ESTIMATE DECREASED PLATELETS (NORMAL)
[2017-06-23] MEDS: Albuterol/Ipratropium Neb 3 ML AERS HHN SCH ×4 (08:09→19:36)
--- NOTE | 2017-06-23 08:39 | Diagnostic Imaging Report ---
Portable chest x-ray HISTORY: Shortness of breath Compared with the prior exam of June 22, 2016, persistent hazy infiltrate noted in the right upper lobe. Density noted about the right and left lower hemithoracic regions suggesting bilateral pleural effusions. IMPRESSION: 1. Minimal change in the overall pulmonary status.
[2017-06-23] MEDS: Multivitamin Tab PO SCH (09:32)
[2017-06-23] MEDS: Lactobacillus Rhamnosus GG 15 Billion CFU CAP.SPRINK PO SCH (09:32)
[2017-06-23] MEDS: POLYETHYLENE GLYCOL 3350 17 GM PACK PO SCH (09:32)
[2017-06-23] MEDS: Vancomycin HCl 1.5 GM in Sodium Chloride 0.9% 500 ML IV SCH (10:10)
[2017-06-23 10:56] LABS: ALLEN TEST Positive; pH 7.41 (7.35-7.45)
[2017-06-23] MEDS: Azithromycin 500 MG in Sodium Chloride 0.9% 250 ML IV SCH (20:19)
[2017-06-23] MEDS ORDERED: Norepinephrine 4 mg/4mL Vial IV ONE (20:39)
[2017-06-23] MEDS: Venelex 60gm Tube TP SCH (21:00)
[2017-06-23] MEDS: Morphine Sulfate 4 mg/mL 1mL Syr IVP PRN (22:47)
[2017-06-24] MEDS ORDERED: Norepinephrine 4 mg/4mL Vial IV ONE ×3 (05:34→22:18)
[2017-06-24] MEDS: metroNIDAZOLE 500mg/NS 100mL 500 MG/100 ML BAG IV SCH ×3 (05:55→21:34)
[2017-06-24] MEDS: Morphine Sulfate 4 mg/mL 1mL Syr IVP PRN (06:21)
[2017-06-24 06:58] LABS: % EOSINOPHILS 1.9 % (0.0-5.0); % LYMPHOCYTES 5.5 % (20.0-50.0); % MONOCYTES 3.7 % (2.0-10.0); % NEUTROPHILS 88.9 % (40.0-80.0); EOSINOPHILE ABSOLUTE 0.3 Th/cmm (0.1-0.4); HEMATOCRIT 35.2 % (41.0-60); HEMOGLOBIN 12.3 gm/dL (12-16); LYMPHOCYTE ABSOLUTE 0.9 Th/cmm (1.5-3.0); MEAN CORPUSCULAR HEMOGLOBIN 36.2 pg (27.0-31.0); MEAN CORPUSCULAR HGB CONC 34.9 pg (28.0-36.0); MEAN PLATELET VOLUME 6.7 fl; MONOCYTE ABSOLUTE 0.6 Th/cmm (0.3-1.0); NEUTROPHILE ABSOLUTE 14.8 Th/cmm (1.8-8.0); PLATELET COUNT 45 Th/cmm (150-400); RED BLOOD COUNT 3.38 Mil/cmm (3.80-5.80); RED CELL DISTRIBUTION WIDTH 15.6 % (11.5-20.0)
[2017-06-24 07:01] LABS: ANION GAP 9.2 (7.0-16.0); BUN - UREA NITROGEN 49 mg/dL (7-25); CALCIUM SERUM 8.4 mg/dL (8.6-10.3); CHLORIDE 118 mEq/L (98-107); CREATININE - SERUM 1.5 mg/dL (0.7-1.3); GLUCOSE 146 mg/dL (70-105); POTASSIUM SERUM 3.2 mEq/L (3.5-5.1); SODIUM SERUM 145 mEq/L (136-145)
[2017-06-24 07:02] LABS: WHITE BLOOD COUNT 16.6 Th/cmm (4.8-10.8)
[2017-06-24] MEDS: Albuterol/Ipratropium Neb 3 ML AERS HHN SCH ×4 (07:29→19:40)
--- NOTE | 2017-06-24 08:21 | Diagnostic Imaging Report ---
Portable chest x-ray HISTORY: Shortness of breath Compared to prior exam of June 23, 2017, evidence of persistent bilateral pleural effusions. Questionable infiltrate in the left lower lobe. IMPRESSION: 1. Little change in the pulmonary status since 06/23/2017.
[2017-06-24] MEDS: Venelex 60gm Tube TP SCH (09:56)
[2017-06-24] MEDS: Multivitamin Tab PO SCH (10:00)
[2017-06-24] MEDS: Lactobacillus Rhamnosus GG 15 Billion CFU CAP.SPRINK PO SCH (10:00)
[2017-06-24] MEDS: POLYETHYLENE GLYCOL 3350 17 GM PACK PO SCH (10:01)
[2017-06-24] MEDS ORDERED: Potassium Phosphate 40 MMOLE in Sodium Chloride 0.9% 250 ML IV ONE (11:00)
[2017-06-24] MEDS: Vancomycin HCl 1.5 GM in Sodium Chloride 0.9% 500 ML IV SCH (11:22)
[2017-06-24] MEDS: KCL 20mEq/100mL Premix 20 MEQ/100 ML PIGGYBACK IV SCH ×2 (11:23→12:37)
--- NOTE | 2017-06-24 11:41 | Infectious Disease Prog Note ---
Infectious Disease Subjective - Review of Systems Service Date: 06/24/17 Events since last encounter: Hypothermic, put on warming blanket. Subjective: Unresponsive, deteriorating clinically, no fever. less congestion. Infectious Disease Objective - Results Result Diagrams: 06/24/17 06:00 06/24/17 06:00 Recent Labs: Laboratory Last Values WBC 16.6 Th/cmm (4.8-10.8) H 06/24/17 06:00 RBC 3.38 Mil/cmm (3.80-5.80) L 06/24/17 06:00 Hgb 12.3 gm/dL (12-16) 06/24/17 06:00 Hct 35.2 % (41.0-60) L 06/24/17 06:00 MCV 104.0 fl (80-99) H 06/24/17 06:00 MCH 36.2 pg (27.0-31.0) H 06/24/17 06:00 MCHC Differential 34.9 pg (28.0-36.0) 06/24/17 06:00 RDW 15.6 % (11.5-20.0) 06/24/17 06:00 Plt Count 45 Th/cmm (150-400) L 06/24/17 06:00 MPV 6.7 fl 06/24/17 06:00 Neutrophils % 88.9 % (40.0-80.0) H 06/24/17 06:00 Band Neutrophils % 22 % (0-10) H 06/23/17 04:45 Lymphocytes % 5.5 % (20.0-50.0) L 06/24/17 06:00 Monocytes % 3.7 % (2.0-10.0) 06/24/17 06:00 Eosinophils % 1.9 % (0.0-5.0) 06/24/17 06:00 Basophils % 0.0 % (0.0-2.0) 06/24/17 06:00 Neutrophils (Manual) 73 % (40-80) 06/23/17 04:45 Lymphocytes 3 % (20-50) L 06/23/17 04:45 Monocytes 1 % (2-10) L 06/23/17 04:45 Eosinophils 1 % (0-5) 06/23/17 04:45 Platelet Estimate DECREASED PLATELETS (NORMAL) 06/23/17 04:45 Specimen Source Arterial 06/23/17 10:42 Sample Site Right Radial 06/23/17 10:42 pH 7.41 (7.35-7.45) 06/23/17 10:42 pCO2 35.0 mmHg (35.0-45.0) 06/23/17 10:42 pO2 76.0 mmHg (80.0-100.0) L 06/23/17 10:42 HCO3 23.4 mEq/L (20.0-26.0) 06/23/17 10:42 Base Excess -1.9 mEq/L (-3.0-3.0) 06/23/17 10:42 O2 Saturation 95.0 % (92.0-100.0) 06/23/17 10:42 Hayden Test Positive 06/23/17 10:42 Vent Rate 12 06/23/17 10:42 Inspired O2 60 06/23/17 10:42 Tidal Volume NA 06/23/17 10:42 PEEP 8 06/23/17 10:42 Pressure (ins/psv/peep) 7 06/23/17 10:42 Critical Value LZHANG 06/23/17 10:42 Sodium 145 mEq/L (136-145) 06/24/17 06:00 Potassium 3.2 mEq/L (3.5-5.1) L 06/24/17 06:00 Chloride 118 mEq/L (98-107) H 06/24/17 06:00 Carbon Dioxide 21.0 mEq/L (21.0-31.0) 06/24/17 06:00 Anion Gap 9.2 (7.0-16.0) 06/24/17 06:00 BUN 49 mg/dL (7-25) H 06/24/17 06:00 Creatinine 1.5 mg/dL (0.7-1.3) H 06/24/17 06:00 Est GFR ( Amer) TNP 06/24/17 06:00 Est GFR (Non-Af Amer) TNP 06/24/17 06:00 BUN/Creatinine Ratio 32.7 06/24/17 06:00 Glucose 146 mg/dL (70-105) H 06/24/17 06:00 POC Glucose 108 MG/DL (70 - 105) H 06/20/17 23:37 Whole Bld Lactic Acid 2.43 mmol/L (0.60-1.99) H* 06/23/17 07:25 Calcium 8.4 mg/dL (8.6-10.3) L 06/24/17 06:00 Phosphorus 3.9 mg/dL (2.5-5.0) 06/22/17 04:30 Magnesium 2.2 mg/dL (1.9-2.7) 06/23/17 04:45 Total Bilirubin 2.0 mg/dL (0.3-1.0) H 06/22/17 04:30 AST 94 U/L (13-39) H 06/22/17 04:30 ALT 44 U/L (7-52) 06/22/17 04:30 Alkaline Phosphatase 119 U/L (34-104) H 06/22/17 04:30 Ammonia 102 umol/L (16-53) H 06/24/17 10:00 Troponin I 0.02 ng/mL (0.01-0.05) 06/21/17 12:00 B-Natriuretic Peptide 268.0 pg/mL (5.0-100.0) H 06/23/17 04:45 Total Protein 5.8 gm/dL (6.0-8.3) L 06/22/17 04:30 Albumin 2.5 gm/dL (4.2-5.5) L 06/22/17 04:30 Globulin 3.3 gm/dL 06/22/17 04:30 Albumin/Globulin Ratio 0.8 (1.0-1.8) L 06/22/17 04:30 Urine Source [place] 06/21/17 18:04 Urine Color ALEKSANDAR 06/21/17 18:04 Urine Clarity CLEAR (CLEAR) 06/21/17 18:04 Urine pH 5.0 (4.6 - 8.0) 06/21/17 18:04 Ur Specific [place] >= 1.030 (1.005-1.030) 06/21/17 18:04 Urine Protein TRACE mg/dL (NEGATIVE) 06/21/17 18:04 Urine Glucose (UA) NEGATIVE mg/dL (NEGATIVE) 06/21/17 18:04 Urine Ketones NEGATIVE mg/dL (NEGATIVE) 06/21/17 18:04 Urine Blood NEGATIVE (NEGATIVE) 06/21/17 18:04 Urine Nitrate NEGATIVE (NEGATIVE) 06/21/17 18:04 Urine Bilirubin NEGATIVE (NEGATIVE) 06/21/17 18:04 Urine Urobilinogen 1.0 E.U./dL (0.2 - 1.0) 06/21/17 18:04 Ur Leukocyte Esterase NEGATIVE (NEGATIVE) 06/21/17 18:04 Urine RBC 0-2 /hpf (0-5) H 06/21/17 18:04 Urine WBC 2-5 /hpf (0-5) 06/21/17 18:04 Ur Epithelial Cells OCCASIONAL /lpf (FEW) 06/21/17 18:04 Urine Bacteria FEW /hpf (NONE SEEN) 06/21/17 18:04 Vancomycin Trough 17.7 ug/mL (10-20) 06/24/17 09:20 - Physical Exam Vitals and I&O: Vital Signs Temp 98.1 F 06/24/17 00:00 Pulse 97 06/24/17 07:00 Resp 16 06/24/17 07:29 BP 96/57 06/24/17 09:56 Pulse Ox 96 06/24/17 07:29 Intake & Output 06/23/17 06/24/17 06/24/17 18:59 06:59 18:59 Intake Total 1158 1146.108 116.459 Output Total 150 Balance 1158 996.108 116.459 Weight (lbs) 75.466 kg Intake: Intake, IV Amount 1158 756.108 116.459 Azithromycin 500 mg In 250 Sodium Chloride 0.9% 250 ml @ 250 mls/hr IV Q24HR [facility] Rx#:[id number] Norepinephrine 4 mg In 508 356.108 116.459 Dextrose 5% 250 ml @ Per Protocol IV TITR PRN Rx#: [id number] Piperacillin Sodium/ 50 50 Tazobact 3.375 gm In Sodium Chloride 0.9% 50 ml @ 100 mls/hr IV Q8HR [facility] Rx#:[id number] Vancomycin HCl 1.5 gm In 500 Sodium Chloride 0.9% 500 ml @ 250 mls/hr IV Q24H [facility] Rx#:[id number] metroNIDAZOLE 500mg/NS 100 100 100mL 500 mg In 100 ml @ 100 mls/hr IV Q8HR [facility] Rx #:[id number] Tube Feeding 240 Other 150 Output: Urine 150 Other: # Bowel Movements 1 Active Medications: Current Medications Acetaminophen (Tylenol) 650 mg PO Q4HR PRN PRN Reason: Mild Pain / Temp above 100 Stop: 08/19/17 21:52 Al Hydrox/Mg Hydrox/Simethicone (Maalox) 30 ml PO Q4HR PRN PRN Reason: GI DISTRESS Stop: 08/19/17 21:52 Albuterol/Ipratropium (Duoneb Neb) 3 ml HHN [id number] [facility] Stop: 08/20/17 18:59 Last Admin: 06/24/17 07:29 Dose: 3 ml [place] Oil/[place] Balsam/Trypsin (Venelex) 1 appl TP DAILY [facility] Stop: 08/22/17 16:14 Last Admin: 06/24/17 09:56 Dose: 1 appl Docusate Sodium (Colace) 250 mg PO BID [facility] Stop: 08/20/17 08:59 Last Admin: 06/24/17 09:59 Dose: Not Given Donepezil HCl (Aricept) 5 mg PO HS [facility] Stop: 08/20/17 20:59 Last Admin: 06/23/17 20:33 Dose: Not Given Folic Acid (Folate) 1 mg PO DAILY [facility] Stop: 08/20/17 08:59 Last Admin: 06/24/17 09:59 Dose: Not Given Furosemide (Lasix) 20 mg IVP DAILY [facility] Stop: 08/22/17 08:59 Last Admin: 06/24/17 09:56 Dose: 20 mg Azithromycin 500 mg/ Sodium (Chloride) 250 mls @ 250 mls/hr IV Q24HR [facility] Stop: 08/19/17 19:44 Last Infusion: 06/23/17 22:21 Dose: Infused Dextrose/Sodium Chloride (D5-0.9%Ns) 1,000 mls @ 70 mls/hr IV .[id number] [facility] Stop: 08/21/17 09:27 Last Admin: 06/23/17 03:00 Dose: 70 mls/hr Metronidazole (Flagyl) 500 mg in 100 mls @ 100 mls/hr IV Q8HR [facility] Stop: 08/21/17 12:59 Last Admin: 06/24/17 05:55 Dose: 100 mls/hr Piperacillin Sod/Tazobactam (Sod 3.375 gm/ Sodium Chloride) 50 mls @ 100 mls/ hr IV Q8HR [facility] Stop: 08/21/17 20:59 Last Admin: 06/24/17 05:49 Dose: 100 mls/hr Vancomycin HCl 1.5 gm/ Sodium (Chloride) 500 mls @ 250 mls/hr IV Q24H [facility] Stop: 08/22/17 09:59 Last Admin: 06/24/17 11:22 Dose: 250 mls/hr Norepinephrine Bitartrate 8 mg (/ Sodium Chloride) 258 mls @ 0 mls/hr IV TITR PRN; Protocol; 0 MCG/MIN PRN Reason: BP MAINTENANCE (PER PROTOCOL) Stop: 08/20/17 09:59 Last Admin: 06/24/17 10:05 Dose: 20 mcg/min, 38.7 mls/hr Potassium Chloride (Potassium Chloride) 20 meq in 100 mls @ 50 mls/hr IV Q2H [facility] Stop: 06/24/17 14:44 Last Admin: 06/24/17 11:23 Dose: 50 mls/hr Lactobacillus Rhamnosus (Culturelle 15b) 1 each PO DAILY [facility] Stop: 08/20/17 08:59 Last Admin: 06/24/17 10:00 Dose: Not Given Latanoprost (Xalatan 0.005% Oph Soln) 1 drop EACH EYE HS [facility] Stop: 08/19/17 20:59 Last Admin: 06/23/17 20:33 Dose: 1 drop Lorazepam (Ativan) 1 mg PO Q4HR PRN PRN Reason: Agitation Stop: 08/19/17 20:16 Lorazepam (Ativan) 1 mg IVP Q4HR PRN; Protocol PRN Reason: Agitation Stop: 08/22/17 08:56 Last Admin: 06/23/17 22:13 Dose: 1 mg Memantine (Namenda) 5 mg PO BID [facility] Stop: 08/20/17 08:59 Last Admin: 06/24/17 10:00 Dose: Not Given Miscellaneous (Vancomycin Iv Per Pharmacy) 1 ea MC PRN PRN PRN Reason: PROTOCOL Stop: 08/21/17 14:04 Morphine Sulfate (Morphine) 1 mg IVP Q4HR PRN PRN Reason: Pain (Severe) Stop: 08/22/17 08:57 Last Admin: 06/24/17 06:21 Dose: 1 mg Multivitamins/Vitamin C (Theragran) 1 tab PO DAILY [facility] Stop: 08/20/17 08:59 Last Admin: 06/24/17 10:00 Dose: Not Given Pantoprazole Sodium (Protonix) 40 mg IVP DAILY [facility] Stop: 08/21/17 20:59 Last Admin: 06/24/17 09:56 Dose: 40 mg Polyethylene Glycol (Miralax) 17 gm PO DAILY [facility] Stop: 08/20/17 08:59 Last Admin: 06/24/17 10:01 Dose: Not Given Sodium Phosphate (Fleet Enema) 135 ml RC PRN PRN PRN Reason: Constipation Stop: 08/19/17 20:23 Last Admin: 06/23/17 22:48 Dose: 135 ml Tamsulosin HCl (Flomax) 0.4 mg PO HS [facility] Stop: 08/19/17 20:59 Last Admin: 06/23/17 20:33 Dose: Not Given Thiamine HCl (Vitamin B1) 100 mg PO DAILY [facility] Stop: 08/20/17 08:59 Last Admin: 06/24/17 10:01 Dose: Not Given Zolpidem Tartrate (Ambien) 5 mg PO HS PRN PRN Reason: Insomnia Stop: 08/19/17 20:19 General: no acute distress, well developed, well nourished HEENT: atraumatic, normocephalic, PERRLA, EOMI, moist mucous membrane Neck: supple, no thyromegaly Cardiovascular: S1S2, regular Lungs: clear to auscultation bilaterally, clear to percussion Abdomen: soft, no tender, no distended Extremities: no cyanosis, no clubbing, no edema Neurological: other (obtunded.) Skin: intact Infectious Disease Assmt/Plan - Assessment Assessment: IMPRESSION: 1. Pneumonia, complicated aspiration, cannot rule out healthcare-related pneumonia. 2. Severe sepsis with lactic acidosis, hypotension and septic shock. 3. Dementia. 4. Psychosis. 5. Ascites. 6. Liver cirrhosis. 7. Ileus. 8. Diverticulosis. 9. Altered mental status. 2/2 metabolic toxic encephalopathy. hepatic encephalopathy. 10. Thrombocytopenia 2/2 liver cirrhosis. - Plan Plan: Continue vanco IV , Zosyn and zithromax. Check legionella serologies. Check ammonia level. start lactulose and rifaximin. Nutritional Asmnt/Malnutr-PDOC - Dietary Evaluation Malnutrition Findings (Please click <Entered> for more info): Nutritional Asmnt/Malnutrition Start: 06/22/17 16: 04 Text: Status: Complete Freq: Document 06/22/17 16:04 MARIAN (Rec: 06/22/17 16:23 LEORICHIE [id number]) Nutritional Asmnt/Malnutrition Patient General Information Nutritional Screening High Risk Diagnosis hypovolemic shock, R/O sepsis Pertinent Medical Hx/Surgical Hx psychosis, alzheimer dementia, ascites, liver cirrhosis, ileus diverticulosis Subjective Information Consult received for wound. Pt seen resting in bed at time of visit. Spoke with RN, pt now was on NPO, waiting for swallow eval. Pt received swallow eval in the afternoon, failed. ST recommended NPO. Current Diet Order/ Nutrition Support NPO Pertinent Medications D5-0.9%nx, colace, folate, culturelle, theragran, piperacillin, miralax, kcl, vit B1, vancomycin Pertinent Labs 3/5 Na 144, K 3.5, Cl 116, BUN 44, Cr 1.1, Glucose 157 Nutritional Hx/Data Height 1.78 m Height (Calculated Centimeters) 177.8 Current Weight (lbs) 75.296 kg Weight (Calculated Kilograms) 75.3 Weight (Calculated Grams) 58583.3 [place] Body Weight 150 Body Mass Index (BMI) 23.8 Weight Status Approriate GI Symptoms GI Symptoms None Last BM 3/4 Difficult in: None Usual diet at home pt was on [facility] soft chopped diet at [facility] Skin Integrity/Comment: [place] 14 no wound care note at this time Current %PO Negligible < 25% Estimated Nutritional Goals BEE in Kcals: Using Current wt Calories/Kcals/Kg 25-30 Kcals Calculated 5054-2689 Protein: Using Current wt Protein g/k-1.2 Protein Calculated 68-82 Fluid: ml 1700-2040ml (1ml/kcal) Nutritional Problem 1. Problem Problem inadequate energy intake Etiology pt on NPO Signs/Symptoms: PO intake <25% Intervention/Recommendation Comments 1. Monitor NPO status. 2. If TF needed, recommend start Fibersource HN at 20ml/ hr continuous, increase 10ml/ hr q6hr to goal rate of 60ml/ hr as tolerated. This will provide 1728kcal, 78g protein, 1166ml free water, meeting 100% of nutritional needs. 3. Monitor wt, labs and skin integrity 4. F/U as high risk in 2-3 days, 06/24-06/25 Expected Outcomes/Goals Expected Outcomes/Goals 1. Pt to meet at least 75% of nutritional needs via nutrition support 2. Wt stability, skin to remain intact, labs to approach WNL.
--- NOTE | 2017-06-24 14:14 | Diagnostic Imaging Report ---
CHEST X-RAY: AP view INDICATION: PICC line placement COMPARISON: 06/24/2017 FINDINGS: Left upper extremity PICC line is in place with tip in the SVC. Findings of CHF are seen with bilateral effusions and infiltrates. Cardiomegaly is noted. IMPRESSION: Left PICC line with tip in the SVC CHF with bilateral effusions and infiltrates.
--- NOTE | 2017-06-24 15:04 | General Progress Note ---
Subjective - Review of Systems Service Date: 06/24/17 Subjective: obtunded, on BIPAP Objective - Results Result Diagrams: 06/24/17 06:00 06/24/17 06:00 Recent Labs: Laboratory Last Values WBC 16.6 Th/cmm (4.8-10.8) H 06/24/17 06:00 RBC 3.38 Mil/cmm (3.80-5.80) L 06/24/17 06:00 Hgb 12.3 gm/dL (12-16) 06/24/17 06:00 Hct 35.2 % (41.0-60) L 06/24/17 06:00 MCV 104.0 fl (80-99) H 06/24/17 06:00 MCH 36.2 pg (27.0-31.0) H 06/24/17 06:00 MCHC Differential 34.9 pg (28.0-36.0) 06/24/17 06:00 RDW 15.6 % (11.5-20.0) 06/24/17 06:00 Plt Count 45 Th/cmm (150-400) L 06/24/17 06:00 MPV 6.7 fl 06/24/17 06:00 Neutrophils % 88.9 % (40.0-80.0) H 06/24/17 06:00 Band Neutrophils % 22 % (0-10) H 06/23/17 04:45 Lymphocytes % 5.5 % (20.0-50.0) L 06/24/17 06:00 Monocytes % 3.7 % (2.0-10.0) 06/24/17 06:00 Eosinophils % 1.9 % (0.0-5.0) 06/24/17 06:00 Basophils % 0.0 % (0.0-2.0) 06/24/17 06:00 Neutrophils (Manual) 73 % (40-80) 06/23/17 04:45 Lymphocytes 3 % (20-50) L 06/23/17 04:45 Monocytes 1 % (2-10) L 06/23/17 04:45 Eosinophils 1 % (0-5) 06/23/17 04:45 Platelet Estimate DECREASED PLATELETS (NORMAL) 06/23/17 04:45 Specimen Source Arterial 06/23/17 10:42 Sample Site Right Radial 06/23/17 10:42 pH 7.41 (7.35-7.45) 06/23/17 10:42 pCO2 35.0 mmHg (35.0-45.0) 06/23/17 10:42 pO2 76.0 mmHg (80.0-100.0) L 06/23/17 10:42 HCO3 23.4 mEq/L (20.0-26.0) 06/23/17 10:42 Base Excess -1.9 mEq/L (-3.0-3.0) 06/23/17 10:42 O2 Saturation 95.0 % (92.0-100.0) 06/23/17 10:42 Hayden Test Positive 06/23/17 10:42 Vent Rate 12 06/23/17 10:42 Inspired O2 60 06/23/17 10:42 Tidal Volume NA 06/23/17 10:42 PEEP 8 06/23/17 10:42 Pressure (ins/psv/peep) 7 06/23/17 10:42 Critical Value LZHANG 06/23/17 10:42 Sodium 145 mEq/L (136-145) 06/24/17 06:00 Potassium 3.2 mEq/L (3.5-5.1) L 06/24/17 06:00 Chloride 118 mEq/L (98-107) H 06/24/17 06:00 Carbon Dioxide 21.0 mEq/L (21.0-31.0) 06/24/17 06:00 Anion Gap 9.2 (7.0-16.0) 06/24/17 06:00 BUN 49 mg/dL (7-25) H 06/24/17 06:00 Creatinine 1.5 mg/dL (0.7-1.3) H 06/24/17 06:00 Est GFR ( Amer) TNP 06/24/17 06:00 Est GFR (Non-Af Amer) TNP 06/24/17 06:00 BUN/Creatinine Ratio 32.7 06/24/17 06:00 Glucose 146 mg/dL (70-105) H 06/24/17 06:00 POC Glucose 108 MG/DL (70 - 105) H 06/20/17 23:37 Whole Bld Lactic Acid 2.43 mmol/L (0.60-1.99) H* 06/23/17 07:25 Calcium 8.4 mg/dL (8.6-10.3) L 06/24/17 06:00 Phosphorus 3.9 mg/dL (2.5-5.0) 06/22/17 04:30 Magnesium 2.2 mg/dL (1.9-2.7) 06/23/17 04:45 Total Bilirubin 2.0 mg/dL (0.3-1.0) H 06/22/17 04:30 AST 94 U/L (13-39) H 06/22/17 04:30 ALT 44 U/L (7-52) 06/22/17 04:30 Alkaline Phosphatase 119 U/L (34-104) H 06/22/17 04:30 Ammonia 102 umol/L (16-53) H 06/24/17 10:00 Troponin I 0.02 ng/mL (0.01-0.05) 06/21/17 12:00 B-Natriuretic Peptide 268.0 pg/mL (5.0-100.0) H 06/23/17 04:45 Total Protein 5.8 gm/dL (6.0-8.3) L 06/22/17 04:30 Albumin 2.5 gm/dL (4.2-5.5) L 06/22/17 04:30 Globulin 3.3 gm/dL 06/22/17 04:30 Albumin/Globulin Ratio 0.8 (1.0-1.8) L 06/22/17 04:30 Urine Source [place] 06/21/17 18:04 Urine Color ALEKSANDAR 06/21/17 18:04 Urine Clarity CLEAR (CLEAR) 06/21/17 18:04 Urine pH 5.0 (4.6 - 8.0) 06/21/17 18:04 Ur Specific [place] >= 1.030 (1.005-1.030) 06/21/17 18:04 Urine Protein TRACE mg/dL (NEGATIVE) 06/21/17 18:04 Urine Glucose (UA) NEGATIVE mg/dL (NEGATIVE) 06/21/17 18:04 Urine Ketones NEGATIVE mg/dL (NEGATIVE) 06/21/17 18:04 Urine Blood NEGATIVE (NEGATIVE) 06/21/17 18:04 Urine Nitrate NEGATIVE (NEGATIVE) 06/21/17 18:04 Urine Bilirubin NEGATIVE (NEGATIVE) 06/21/17 18:04 Urine Urobilinogen 1.0 E.U./dL (0.2 - 1.0) 06/21/17 18:04 Ur Leukocyte Esterase NEGATIVE (NEGATIVE) 06/21/17 18:04 Urine RBC 0-2 /hpf (0-5) H 06/21/17 18:04 Urine WBC 2-5 /hpf (0-5) 06/21/17 18:04 Ur Epithelial Cells OCCASIONAL /lpf (FEW) 06/21/17 18:04 Urine Bacteria FEW /hpf (NONE SEEN) 06/21/17 18:04 Vancomycin Trough 17.7 ug/mL (10-20) 06/24/17 09:20 Ur L.pneumophila Ag Negative (Negative) 06/22/17 10:45 - Physical Exam Vitals and I&O: Vital Signs Temp 98.1 F 06/24/17 00:00 Pulse 97 06/24/17 07:00 Resp 18 06/24/17 11:56 BP 96/57 06/24/17 09:56 Pulse Ox 94 06/24/17 11:56 Intake & Output 06/23/17 06/24/17 06/24/17 18:59 06:59 18:59 Intake Total 1158 1296.108 860.341 Output Total 150 Balance 1158 1146.108 860.341 Weight (lbs) 75.466 kg Intake: Intake, IV Amount 1158 906.108 860.341 Azithromycin 500 mg In 250 Sodium Chloride 0.9% 250 ml @ 250 mls/hr IV Q24HR [facility] Rx#:[id number] KCL 20mEq/100mL Premix 20 61.667 meq In 100 ml @ 50 mls/ hr IV Q2H [facility] Rx#: [id number] Norepinephrine 4 mg In 508 356.108 116.459 Dextrose 5% 250 ml @ Per Protocol IV TITR PRN Rx#: [id number] Norepinephrine 8 mg In 132.215 Sodium Chloride 0.9% 250 ml @ 0 MCG/MIN IV TITR PRN Rx#:[id number] Piperacillin Sodium/ 50 100 50 Tazobact 3.375 gm In Sodium Chloride 0.9% 50 ml @ 100 mls/hr IV Q8HR [facility] Rx#:[id number] Vancomycin HCl 1.5 gm In 500 500 Sodium Chloride 0.9% 500 ml @ 250 mls/hr IV Q24H [facility] Rx#:[id number] metroNIDAZOLE 500mg/NS 100 200 100mL 500 mg In 100 ml @ 100 mls/hr IV Q8HR [facility] Rx #:[id number] Tube Feeding 240 Other 150 Output: Urine 150 Other: # Bowel Movements 1 Active Medications: Current Medications Acetaminophen (Tylenol) 650 mg PO Q4HR PRN PRN Reason: Mild Pain / Temp above 100 Stop: 08/19/17 21:52 Al Hydrox/Mg Hydrox/Simethicone (Maalox) 30 ml PO Q4HR PRN PRN Reason: GI DISTRESS Stop: 08/19/17 21:52 Albuterol/Ipratropium (Duoneb Neb) 3 ml HHN [id number] [facility] Stop: 08/20/17 18:59 Last Admin: 06/24/17 11:56 Dose: 3 ml [place] Oil/Swiss Balsam/Trypsin (Venelex) 1 appl TP DAILY [facility] Stop: 08/22/17 16:14 Last Admin: 06/24/17 09:56 Dose: 1 appl Docusate Sodium (Colace) 250 mg PO BID [facility] Stop: 08/20/17 08:59 Last Admin: 06/24/17 09:59 Dose: Not Given Donepezil HCl (Aricept) 5 mg PO HS [facility] Stop: 08/20/17 20:59 Last Admin: 06/23/17 20:33 Dose: Not Given Folic Acid (Folate) 1 mg PO DAILY [facility] Stop: 08/20/17 08:59 Last Admin: 06/24/17 09:59 Dose: Not Given Furosemide (Lasix) 20 mg IVP DAILY [facility] Stop: 08/22/17 08:59 Last Admin: 06/24/17 09:56 Dose: 20 mg Azithromycin 500 mg/ Sodium (Chloride) 250 mls @ 250 mls/hr IV Q24HR [facility] Stop: 08/19/17 19:44 Last Infusion: 06/23/17 22:21 Dose: Infused Dextrose/Sodium Chloride (D5-0.9%Ns) 1,000 mls @ 70 mls/hr IV .[id number] [facility] Stop: 08/21/17 09:27 Last Admin: 06/23/17 03:00 Dose: 70 mls/hr Metronidazole (Flagyl) 500 mg in 100 mls @ 100 mls/hr IV Q8HR [facility] Stop: 08/21/17 12:59 Last Admin: 06/24/17 13:30 Dose: 100 mls/hr Piperacillin Sod/Tazobactam (Sod 3.375 gm/ Sodium Chloride) 50 mls @ 100 mls/ hr IV Q8HR [facility] Stop: 08/21/17 20:59 Last Infusion: 06/24/17 14:24 Dose: Infused Vancomycin HCl 1.5 gm/ Sodium (Chloride) 500 mls @ 250 mls/hr IV Q24H [facility] Stop: 08/22/17 09:59 Last Infusion: 06/24/17 14:24 Dose: Infused Norepinephrine Bitartrate 8 mg (/ Sodium Chloride) 258 mls @ 0 mls/hr IV TITR PRN; Protocol; 0 MCG/MIN PRN Reason: BP MAINTENANCE (PER PROTOCOL) Stop: 08/20/17 09:59 Last Titration: 06/24/17 14:00 Dose: 10 mcg/min, 19.35 mls/hr Lactobacillus Rhamnosus (Culturelle 15b) 1 each PO DAILY [facility] Stop: 08/20/17 08:59 Last Admin: 06/24/17 10:00 Dose: Not Given Lactulose (Cephulac) 30 gm PO Q4HR [facility] Stop: 08/23/17 15:59 Latanoprost (Xalatan 0.005% [facility] Sol) 1 drop EACH EYE HS [facility] Stop: 08/19/17 20:59 Last Admin: 06/23/17 20:33 Dose: 1 drop Lorazepam (Ativan) 1 mg PO Q4HR PRN PRN Reason: Agitation Stop: 08/19/17 20:16 Lorazepam (Ativan) 1 mg IVP Q4HR PRN; Protocol PRN Reason: Agitation Stop: 08/22/17 08:56 Last Admin: 06/23/17 22:13 Dose: 1 mg Memantine (Namenda) 5 mg PO BID [facility] Stop: 08/20/17 08:59 Last Admin: 06/24/17 10:00 Dose: Not Given Miscellaneous (Vancomycin Iv Per Pharmacy) 1 ea MC PRN PRN PRN Reason: PROTOCOL Stop: 08/21/17 14:04 Morphine Sulfate (Morphine) 1 mg IVP Q4HR PRN PRN Reason: Pain (Severe) Stop: 08/22/17 08:57 Last Admin: 06/24/17 06:21 Dose: 1 mg Multivitamins/Vitamin C (Theragran) 1 tab PO DAILY [facility] Stop: 08/20/17 08:59 Last Admin: 06/24/17 10:00 Dose: Not Given Pantoprazole Sodium (Protonix) 40 mg IVP DAILY [facility] Stop: 08/21/17 20:59 Last Admin: 06/24/17 09:56 Dose: 40 mg Polyethylene Glycol (Miralax) 17 gm PO DAILY [facility] Stop: 08/20/17 08:59 Last Admin: 06/24/17 10:01 Dose: Not Given Rifaximin (Xifaxan) 600 mg PO BID [facility] Stop: 08/23/17 16:59 Sodium Phosphate (Fleet Enema) 135 ml RC PRN PRN PRN Reason: Constipation Stop: 08/19/17 20:23 Last Admin: 06/23/17 22:48 Dose: 135 ml Tamsulosin HCl (Flomax) 0.4 mg PO HS [facility] Stop: 08/19/17 20:59 Last Admin: 06/23/17 20:33 Dose: Not Given Thiamine HCl (Vitamin B1) 100 mg PO DAILY [facility] Stop: 08/20/17 08:59 Last Admin: 06/24/17 10:01 Dose: Not Given Zolpidem Tartrate (Ambien) 5 mg PO HS PRN PRN Reason: Insomnia Stop: 08/19/17 20:19 General: Moderate distress HEENT: Atraumatic, Mucous membr. moist/pink Neck: Supple, +2 carotid pulse wo bruit Cardiovascular: Regular rate, Normal S1, Normal S2 Lungs: Other (coarse rhonchi, congestion) Abdomen: Soft Extremities: Edema, Other (bipedal edema, Upper ext edema) Neurological: Sensation intact Skin: no Rash Psych/Mental Status: Mood NL Assessment/Plan - Assessment Assessment: Shock 2/2 possible HAP Resp failure on BIPAP 2/2 to decomp CHF, Left HAP CHF/ Pul edema Thrombocytopenia 2/2 Cirrhosis, possibly sepsis, DIC, meds (Zosyn/Vanco) Hx Ascites Psychosis Peripheral edema - Plan Plan: Lab - Result Diagrams 06/24/17 06:00 06/24/17 06:00 Current Medications Acetaminophen (Tylenol) 650 mg PO Q4HR PRN PRN Reason: Mild Pain / Temp above 100 Stop: 08/19/17 21:52 Al Hydrox/Mg Hydrox/Simethicone (Maalox) 30 ml PO Q4HR PRN PRN Reason: GI DISTRESS Stop: 08/19/17 21:52 Albuterol/Ipratropium (Duoneb Neb) 3 ml HHN [id number] [facility] Stop: 08/20/17 18:59 Last Admin: 06/24/17 11:56 Dose: 3 ml [place] Oil/Swiss Balsam/Trypsin (Venelex) 1 appl TP DAILY [facility] Stop: 08/22/17 16:14 Last Admin: 06/24/17 09:56 Dose: 1 appl Docusate Sodium (Colace) 250 mg PO BID [facility] Stop: 08/20/17 08:59 Last Admin: 06/24/17 09:59 Dose: Not Given Donepezil HCl (Aricept) 5 mg PO HS [facility] Stop: 08/20/17 20:59 Last Admin: 06/23/17 20:33 Dose: Not Given Folic Acid (Folate) 1 mg PO DAILY [facility] Stop: 08/20/17 08:59 Last Admin: 06/24/17 09:59 Dose: Not Given Furosemide (Lasix) 20 mg IVP DAILY [facility] Stop: 08/22/17 08:59 Last Admin: 06/24/17 09:56 Dose: 20 mg Azithromycin 500 mg/ Sodium (Chloride) 250 mls @ 250 mls/hr IV Q24HR [facility] Stop: 08/19/17 19:44 Last Infusion: 06/23/17 22:21 Dose: Infused Dextrose/Sodium Chloride (D5-0.9%Ns) 1,000 mls @ 70 mls/hr IV .[id number] [facility] Stop: 08/21/17 09:27 Last Admin: 06/23/17 03:00 Dose: 70 mls/hr Metronidazole (Flagyl) 500 mg in 100 mls @ 100 mls/hr IV Q8HR [facility] Stop: 08/21/17 12:59 Last Admin: 06/24/17 13:30 Dose: 100 mls/hr Piperacillin Sod/Tazobactam (Sod 3.375 gm/ Sodium Chloride) 50 mls @ 100 mls/ hr IV Q8HR [facility] Stop: 08/21/17 20:59 Last Infusion: 06/24/17 14:24 Dose: Infused Vancomycin HCl 1.5 gm/ Sodium (Chloride) 500 mls @ 250 mls/hr IV Q24H [facility] Stop: 08/22/17 09:59 Last Infusion: 06/24/17 14:24 Dose: Infused Norepinephrine Bitartrate 8 mg (/ Sodium Chloride) 258 mls @ 0 mls/hr IV TITR PRN; Protocol; 0 MCG/MIN PRN Reason: BP MAINTENANCE (PER PROTOCOL) Stop: 08/20/17 09:59 Last Titration: 06/24/17 14:00 Dose: 10 mcg/min, 19.35 mls/hr Lactobacillus Rhamnosus (Culturelle 15b) 1 each PO DAILY [facility] Stop: 08/20/17 08:59 Last Admin: 06/24/17 10:00 Dose: Not Given Lactulose (Cephulac) 30 gm PO Q4HR [facility] Stop: 08/23/17 15:59 Latanoprost (Xalatan 0.005% [facility] Soln) 1 drop EACH EYE HS [facility] Stop: 08/19/17 20:59 Last Admin: 06/23/17 20:33 Dose: 1 drop Lorazepam (Ativan) 1 mg PO Q4HR PRN PRN Reason: Agitation Stop: 08/19/17 20:16 Lorazepam (Ativan) 1 mg IVP Q4HR PRN; Protocol PRN Reason: Agitation Stop: 08/22/17 08:56 Last Admin: 06/23/17 22:13 Dose: 1 mg Memantine (Namenda) 5 mg PO BID [facility] Stop: 08/20/17 08:59 Last Admin: 06/24/17 10:00 Dose: Not Given Miscellaneous (Vancomycin Iv Per Pharmacy) 1 ea MC PRN PRN PRN Reason: PROTOCOL Stop: 08/21/17 14:04 Morphine Sulfate (Morphine) 1 mg IVP Q4HR PRN PRN Reason: Pain (Severe) Stop: 08/22/17 08:57 Last Admin: 06/24/17 06:21 Dose: 1 mg Multivitamins/Vitamin C (Theragran) 1 tab PO DAILY [facility] Stop: 08/20/17 08:59 Last Admin: 06/24/17 10:00 Dose: Not Given Pantoprazole Sodium (Protonix) 40 mg IVP DAILY [facility] Stop: 08/21/17 20:59 Last Admin: 06/24/17 09:56 Dose: 40 mg Polyethylene Glycol (Miralax) 17 gm PO DAILY [facility] Stop: 08/20/17 08:59 Last Admin: 06/24/17 10:01 Dose: Not Given Rifaximin (Xifaxan) 600 mg PO BID [facility] Stop: 08/23/17 16:59 Sodium Phosphate (Fleet Enema) 135 ml RC PRN PRN PRN Reason: Constipation Stop: 08/19/17 20:23 Last Admin: 06/23/17 22:48 Dose: 135 ml Tamsulosin HCl (Flomax) 0.4 mg PO HS [facility] Stop: 08/19/17 20:59 Last Admin: 06/23/17 20:33 Dose: Not Given Thiamine HCl (Vitamin B1) 100 mg PO DAILY [facility] Stop: 08/20/17 08:59 Last Admin: 06/24/17 10:01 Dose: Not Given Zolpidem Tartrate (Ambien) 5 mg PO HS PRN PRN Reason: Insomnia Stop: 08/19/17 20:19 Lab - Result Diagrams 06/24/17 06:00 06/24/17 06:00 DC lasix IVP, switch to drip, albumin infusion decrease rate ivf continue Levophed replace K Nutritional Asmnt/Malnutr-PDOC - Dietary Evaluation Malnutrition Findings (Please click <Entered> for more info): Nutritional Asmnt/Malnutrition Start: 06/22/17 16: 04 Text: Status: Complete Freq: Document 06/22/17 16:04 [place] (Rec: 06/22/17 16:23 [place] [id number]) Nutritional Asmnt/Malnutrition Patient General Information Nutritional Screening High Risk Diagnosis hypovolemic shock, R/O sepsis Pertinent Medical Hx/Surgical Hx psychosis, alzheimer dementia, ascites, liver cirrhosis, ileus diverticulosis Subjective Information Consult received for wound. Pt seen resting in bed at time of visit. Spoke with RN, pt now was on NPO, waiting for swallow eval. Pt received swallow eval in the afternoon, failed. ST recommended NPO. Current Diet Order/ Nutrition Support NPO Pertinent Medications D5-0.9%nx, colace, folate, culturelle, theragran, piperacillin, miralax, kcl, vit B1, vancomycin Pertinent Labs 3/5 Na 144, K 3.5, Cl 116, BUN 44, Cr 1.1, Glucose 157 Nutritional Hx/Data Height 1.78 m Height (Calculated Centimeters) 177.8 Current Weight (lbs) 75.296 kg Weight (Calculated Kilograms) 75.3 Weight (Calculated Grams) 51018.3 [place] Body Weight 150 Body Mass Index (BMI) 23.8 Weight Status Approriate GI Symptoms GI Symptoms None Last BM 3/4 Difficult in: None Usual diet at home pt was on [facility] soft chopped diet at [facility] Skin Integrity/Comment: Douglas 14 no wound care note at this time Current %PO Negligible < 25% Estimated Nutritional Goals BEE in Kcals: Using Current wt Calories/Kcals/Kg 25-30 Kcals Calculated 8440-8821 Protein: Using Current wt Protein g/k-1.2 Protein Calculated 68-82 Fluid: ml 1700-2040ml (1ml/kcal) Nutritional Problem 1. Problem Problem inadequate energy intake Etiology pt on NPO Signs/Symptoms: PO intake <25% Intervention/Recommendation Comments 1. Monitor NPO status. 2. If TF needed, recommend start Fibersource HN at 20ml/ hr continuous, increase 10ml/ hr q6hr to goal rate of 60ml/ hr as tolerated. This will provide 1728kcal, 78g protein, 1166ml free water, meeting 100% of nutritional needs. 3. Monitor wt, labs and skin integrity 4. F/U as high risk in 2-3 days, 06/24-06/25 Expected Outcomes/Goals Expected Outcomes/Goals 1. Pt to meet at least 75% of nutritional needs via nutrition support 2. Wt stability, skin to remain intact, labs to approach WNL.
[2017-06-24] MEDS ORDERED: D5-0.9%NS 1,000 ML IV SCH (15:13)
[2017-06-24] MEDS ORDERED: Albumin 25% 12.5gm/50mL 12.5 GM/50 ML BTL IV ONE (16:00)
[2017-06-24] MEDS ORDERED: GLUCAGON HCl 1 MG KIT IM PRN (16:17)
[2017-06-24] MEDS ORDERED: Dextrose 50% 50 mL Abboject IVP PRN (16:17)
[2017-06-24] MEDS: Albumin 25% 12.5gm/50mL 12.5 GM/50 ML BTL IV SCH ×2 (16:37→23:47)
[2017-06-24 16:42] LABS: CHOLESTEROL 55 mg/dL (<200); TRIGLYCERIDES 23 mg/dL (<150)
[2017-06-24 16:49] LABS: pH 7.38 (7.35-7.45)
[2017-06-24 16:50] LABS: ALLEN TEST PASS
[2017-06-24] MEDS: Lactulose 10 Gm/15 mL 30mL UDC PO SCH ×3 (16:58→23:54)
[2017-06-24] MEDS: Furosemide 100 MG in Sodium Chloride 0.9% 90 ML IV SCH (17:52)
--- NOTE | 2017-06-24 18:02 | General Progress Note ---
Subjective - Review of Systems Service Date: 06/24/17 Events since last encounter: [facility], on Levo has stage 4 sacral decubitus ulcer which might have contributed to sepsis platelets low, from sepsis? suggest debridment, maybe wound vac when values corrected Objective - Results Result Diagrams: 06/24/17 06:00 06/24/17 06:00 Recent Labs: Laboratory Last Values WBC 16.6 Th/cmm (4.8-10.8) H 06/24/17 06:00 RBC 3.38 Mil/cmm (3.80-5.80) L 06/24/17 06:00 Hgb 12.3 gm/dL (12-16) 06/24/17 06:00 Hct 35.2 % (41.0-60) L 06/24/17 06:00 MCV 104.0 fl (80-99) H 06/24/17 06:00 MCH 36.2 pg (27.0-31.0) H 06/24/17 06:00 MCHC Differential 34.9 pg (28.0-36.0) 06/24/17 06:00 RDW 15.6 % (11.5-20.0) 06/24/17 06:00 Plt Count 45 Th/cmm (150-400) L 06/24/17 06:00 MPV 6.7 fl 06/24/17 06:00 Neutrophils % 88.9 % (40.0-80.0) H 06/24/17 06:00 Band Neutrophils % 22 % (0-10) H 06/23/17 04:45 Lymphocytes % 5.5 % (20.0-50.0) L 06/24/17 06:00 Monocytes % 3.7 % (2.0-10.0) 06/24/17 06:00 Eosinophils % 1.9 % (0.0-5.0) 06/24/17 06:00 Basophils % 0.0 % (0.0-2.0) 06/24/17 06:00 Neutrophils (Manual) 73 % (40-80) 06/23/17 04:45 Lymphocytes 3 % (20-50) L 06/23/17 04:45 Monocytes 1 % (2-10) L 06/23/17 04:45 Eosinophils 1 % (0-5) 06/23/17 04:45 Platelet Estimate DECREASED PLATELETS (NORMAL) 06/23/17 04:45 Specimen Source Arterial 06/24/17 16:40 Sample Site Right Radial 06/24/17 16:40 pH 7.38 (7.35-7.45) 03 16:40 pCO2 36.0 mmHg (35.0-45.0) 06/24/17 16:40 pO2 73.0 mmHg (80.0-100.0) L 06/24/17 16:40 HCO3 22.3 mEq/L (20.0-26.0) 06/24/17 16:40 Base Excess -3.3 mEq/L (-3.0-3.0) L 06/24/17 16:40 O2 Saturation 94.0 % (92.0-100.0) 06/24/17 16:40 Hayden Test PASS 06/24/17 16:40 Vent Rate 12 06/24/17 16:40 Inspired O2 60 06/24/17 16:40 Tidal Volume NA 06/23/17 10:42 PEEP 8 06/23/17 10:42 Pressure (ins/psv/peep) 7 06/24/17 16:40 Critical Value PW 06/24/17 16:40 Sodium 145 mEq/L (136-145) 06/24/17 06:00 Potassium 3.2 mEq/L (3.5-5.1) L 06/24/17 06:00 Chloride 118 mEq/L (98-107) H 06/24/17 06:00 Carbon Dioxide 21.0 mEq/L (21.0-31.0) 06/24/17 06:00 Anion Gap 9.2 (7.0-16.0) 06/24/17 06:00 BUN 49 mg/dL (7-25) H 06/24/17 06:00 Creatinine 1.5 mg/dL (0.7-1.3) H 06/24/17 06:00 Est GFR ( Amer) TNP 06/24/17 06:00 Est GFR (Non-Af Amer) TNP 06/24/17 06:00 BUN/Creatinine Ratio 32.7 06/24/17 06:00 Glucose 146 mg/dL (70-105) H 06/24/17 06:00 POC Glucose 86 MG/DL (70 - 105) 06/24/17 17:12 Whole Bld Lactic Acid 2.43 mmol/L (0.60-1.99) H* 06/23/17 07:25 Calcium 8.4 mg/dL (8.6-10.3) L 06/24/17 06:00 Phosphorus 3.9 mg/dL (2.5-5.0) 06/22/17 04:30 Magnesium 2.2 mg/dL (1.9-2.7) 06/23/17 04:45 Total Bilirubin 2.0 mg/dL (0.3-1.0) H 06/22/17 04:30 AST 94 U/L (13-39) H 06/22/17 04:30 ALT 44 U/L (7-52) 06/22/17 04:30 Alkaline Phosphatase 119 U/L (34-104) H 06/22/17 04:30 Ammonia 102 umol/L (16-53) H 06/24/17 10:00 Troponin I 0.02 ng/mL (0.01-0.05) 06/21/17 12:00 B-Natriuretic Peptide 268.0 pg/mL (5.0-100.0) H 06/23/17 04:45 Total Protein 5.8 gm/dL (6.0-8.3) L 06/22/17 04:30 Albumin 2.5 gm/dL (4.2-5.5) L 06/22/17 04:30 Globulin 3.3 gm/dL 06/22/17 04:30 Albumin/Globulin Ratio 0.8 (1.0-1.8) L 06/22/17 04:30 Triglycerides 23 mg/dL (<150) 06/24/17 09:20 Cholesterol 55 mg/dL (<200) 06/24/17 09:20 Urine Source [place] 06/21/17 18:04 Urine Color ALEKSANDAR 06/21/17 18:04 Urine Clarity CLEAR (CLEAR) 06/21/17 18:04 Urine pH 5.0 (4.6 - 8.0) 06/21/17 18:04 Ur Specific [place] >= 1.030 (1.005-1.030) 06/21/17 18:04 Urine Protein TRACE mg/dL (NEGATIVE) 06/21/17 18:04 Urine Glucose (UA) NEGATIVE mg/dL (NEGATIVE) 06/21/17 18:04 Urine Ketones NEGATIVE mg/dL (NEGATIVE) 06/21/17 18:04 Urine Blood NEGATIVE (NEGATIVE) 06/21/17 18:04 Urine Nitrate NEGATIVE (NEGATIVE) 06/21/17 18:04 Urine Bilirubin NEGATIVE (NEGATIVE) 06/21/17 18:04 Urine Urobilinogen 1.0 E.U./dL (0.2 - 1.0) 06/21/17 18:04 Ur Leukocyte Esterase NEGATIVE (NEGATIVE) 06/21/17 18:04 Urine RBC 0-2 /hpf (0-5) H 06/21/17 18:04 Urine WBC 2-5 /hpf (0-5) 06/21/17 18:04 Ur Epithelial Cells OCCASIONAL /lpf (FEW) 06/21/17 18:04 Urine Bacteria FEW /hpf (NONE SEEN) 06/21/17 18:04 Vancomycin Trough 17.7 ug/mL (10-20) 06/24/17 09:20 Ur L.pneumophila Ag Negative (Negative) 06/22/17 10:45 - Physical Exam Vitals and I&O: Vital Signs Temp 97.0 F 06/24/17 08:00 Pulse 101 06/24/17 13:45 Resp 27 06/24/17 15:41 BP 101/45 06/24/17 17:52 Pulse Ox 95 06/24/17 15:41 Intake & Output 06/23/17 06/24/17 06/24/17 18:59 06:59 18:59 Intake Total 1158 1296.108 979.691 Output Total 150 Balance 1158 1146.108 979.691 Weight (lbs) 75.466 kg Intake: Intake, IV Amount 1158 906.108 979.691 Azithromycin 500 mg In 250 Sodium Chloride 0.9% 250 ml @ 250 mls/hr IV Q24HR [facility] Rx#:[id number] KCL 20mEq/100mL Premix 20 61.667 meq In 100 ml @ 50 mls/ hr IV Q2H [facility] Rx#: [id number] Norepinephrine 4 mg In 508 356.108 116.459 Dextrose 5% 250 ml @ Per Protocol IV TITR PRN Rx#: [id number] Norepinephrine 8 mg In 151.565 Sodium Chloride 0.9% 250 ml @ 0 MCG/MIN IV TITR PRN Rx#:[id number] Piperacillin Sodium/ 50 100 50 Tazobact 3.375 gm In Sodium Chloride 0.9% 50 ml @ 100 mls/hr IV Q8HR [facility] Rx#:[id number] Vancomycin HCl 1.5 gm In 500 500 Sodium Chloride 0.9% 500 ml @ 250 mls/hr IV Q24H [facility] Rx#:[id number] metroNIDAZOLE 500mg/NS 100 200 100 100mL 500 mg In 100 ml @ 100 mls/hr IV Q8HR [facility] Rx #:[id number] Tube Feeding 240 Other 150 Output: Urine 150 Other: # Bowel Movements 1 Active Medications: Current Medications Acetaminophen (Tylenol) 650 mg PO Q4HR PRN PRN Reason: Mild Pain / Temp above 100 Stop: 08/19/17 21:52 Al Hydrox/Mg Hydrox/Simethicone (Maalox) 30 ml PO Q4HR PRN PRN Reason: GI DISTRESS Stop: 08/19/17 21:52 Albuterol/Ipratropium (Duoneb Neb) 3 ml HHN [id number] [facility] Stop: 08/20/17 18:59 Last Admin: 06/24/17 15:41 Dose: 3 ml [place] Oil/Surinamese Balsam/Trypsin (Venelex) 1 appl TP DAILY [facility] Stop: 08/22/17 16:14 Last Admin: 06/24/17 09:56 Dose: 1 appl Dextrose (D50w) 50 ml IVP PRN PRN PRN Reason: Blood Glucose less than 70 Stop: 08/23/17 16:16 Dextrose (Glutose 40%) 18.75 gm PO PRN PRN PRN Reason: Blood Glucose less than 70 Stop: 08/23/17 16:16 Docusate Sodium (Colace) 250 mg PO BID [facility] Stop: 08/20/17 08:59 Last Admin: 06/24/17 17:22 Dose: Not Given Donepezil HCl (Aricept) 5 mg PO HS [facility] Stop: 08/20/17 20:59 Last Admin: 06/23/17 20:33 Dose: Not Given Folic Acid (Folate) 1 mg PO DAILY [facility] Stop: 08/20/17 08:59 Last Admin: 06/24/17 09:59 Dose: Not Given Glucagon (Glucagen) 1 mg IM PRN PRN PRN Reason: Blood Glucose less than 70 Stop: 08/23/17 16:16 Azithromycin 500 mg/ Sodium (Chloride) 250 mls @ 250 mls/hr IV Q24HR [facility] Stop: 08/19/17 19:44 Last Infusion: 06/23/17 22:21 Dose: Infused Metronidazole (Flagyl) 500 mg in 100 mls @ 100 mls/hr IV Q8HR [facility] Stop: 08/21/17 12:59 Last Infusion: 06/24/17 15:55 Dose: Infused Piperacillin Sod/Tazobactam (Sod 3.375 gm/ Sodium Chloride) 50 mls @ 100 mls/ hr IV Q8HR [facility] Stop: 08/21/17 20:59 Last Infusion: 06/24/17 14:24 Dose: Infused Vancomycin HCl 1.5 gm/ Sodium (Chloride) 500 mls @ 250 mls/hr IV Q24H [facility] Stop: 08/22/17 09:59 Last Infusion: 06/24/17 14:24 Dose: Infused Norepinephrine Bitartrate 8 mg (/ Sodium Chloride) 258 mls @ 0 mls/hr IV TITR PRN; Protocol; 0 MCG/MIN PRN Reason: BP MAINTENANCE (PER PROTOCOL) Stop: 08/20/17 09:59 Last Titration: 06/24/17 15:00 Dose: 5 mcg/min, 9.67 mls/hr Dextrose/Sodium Chloride (D5-0.9%Ns) 1,000 mls @ 30 mls/hr IV .Q24H [facility] Stop: 08/23/17 15:12 Last Admin: 06/24/17 17:21 Dose: 30 mls/hr Furosemide 100 mg/ Sodium (Chloride) 100 mls @ 5 mls/hr IV TITR [facility] Stop: 08/23/17 16:29 Last Admin: 06/24/17 17:52 Dose: 5 mls/hr Albumin Human (Albutein 25%) 12.5 gm in 50 mls @ 50 mls/hr IV Q8H [facility] Stop: 06/27/17 08:01 Last Admin: 06/24/17 16:37 Dose: 50 mls/hr Insulin Aspart (Novolog Insulin Sliding Scale) 0 units SUBQ Q6HR [facility] PRN Reason: Protocol Stop: 08/23/17 17:59 Lactobacillus Rhamnosus (Culturelle 15b) 1 each PO DAILY [facility] Stop: 08/20/17 08:59 Last Admin: 06/24/17 10:00 Dose: Not Given Lactulose (Cephulac) 30 gm PO Q4HR [facility] Stop: 08/23/17 15:59 Last Admin: 06/24/17 16:58 Dose: Not Given Latanoprost (Xalatan 0.005% Ophth Soln) 1 drop EACH EYE HS [facility] Stop: 08/19/17 20:59 Last Admin: 06/23/17 20:33 Dose: 1 drop Lorazepam (Ativan) 1 mg PO Q4HR PRN PRN Reason: Agitation Stop: 08/19/17 20:16 Lorazepam (Ativan) 1 mg IVP Q4HR PRN; Protocol PRN Reason: Agitation Stop: 08/22/17 08:56 Last Admin: 06/23/17 22:13 Dose: 1 mg Memantine (Namenda) 5 mg PO BID [facility] Stop: 08/20/17 08:59 Last Admin: 06/24/17 17:22 Dose: Not Given Miscellaneous (Vancomycin Iv Per Pharmacy) 1 ea PRN PRN PRN Reason: PROTOCOL Stop: 08/21/17 14:04 Miscellaneous (Tpn Per Pharmacy) 1 [facility] PRN PRN PRN Reason: PROTOCOL Stop: 08/23/17 15:17 Morphine Sulfate (Morphine) 1 mg IVP Q4HR PRN PRN Reason: Pain (Severe) Stop: 08/22/17 08:57 Last Admin: 06/24/17 06:21 Dose: 1 mg Multivitamins/Vitamin C (Theragran) 1 tab PO DAILY [facility] Stop: 08/20/17 08:59 Last Admin: 06/24/17 10:00 Dose: Not Given Pantoprazole Sodium (Protonix) 40 mg IVP DAILY [facility] Stop: 08/21/17 20:59 Last Admin: 06/24/17 09:56 Dose: 40 mg Polyethylene Glycol (Miralax) 17 gm PO DAILY [facility] Stop: 08/20/17 08:59 Last Admin: 06/24/17 10:01 Dose: Not Given Rifaximin (Xifaxan) 600 mg PO BID [facility] Stop: 08/23/17 16:59 Last Admin: 06/24/17 16:59 Dose: Not Given Sodium Phosphate (Fleet Enema) 135 ml RC PRN PRN PRN Reason: Constipation Stop: 08/19/17 20:23 Last Admin: 06/23/17 22:48 Dose: 135 ml Tamsulosin HCl (Flomax) 0.4 mg PO HS [facility] Stop: 08/19/17 20:59 Last Admin: 06/23/17 20:33 Dose: Not Given Thiamine HCl (Vitamin B1) 100 mg PO DAILY [facility] Stop: 08/20/17 08:59 Last Admin: 06/24/17 10:01 Dose: Not Given Zolpidem Tartrate (Ambien) 5 mg PO HS PRN PRN Reason: Insomnia Stop: 08/19/17 20:19 General: Moderate distress HEENT: Atraumatic, Mucous membr. moist/pink Neck: Supple, +2 carotid pulse wo bruit Cardiovascular: Regular rate, Normal S1, Normal S2 Lungs: Other (coarse rhonchi, congestion) Abdomen: Soft Extremities: Edema, Other (bipedal edema, Upper ext edema) Neurological: Sensation intact Skin: no Rash Psych/Mental Status: Mood NL Nutritional Asmnt/Malnutr-PDOC - Dietary Evaluation Malnutrition Findings (Please click <Entered> for more info): Nutritional Asmnt/Malnutrition Start: 06/22/17 16: 04 Text: Status: Complete Freq: Document 06/22/17 16:04 ISRALE (Rec: 06/22/17 16:23 [id number] Nutritional Asmnt/Malnutrition Patient General Information Nutritional Screening High Risk Diagnosis hypovolemic shock, R/O sepsis Pertinent Medical Hx/Surgical Hx psychosis, alzheimer dementia, ascites, liver cirrhosis, ileus diverticulosis Subjective Information Consult received for wound. Pt seen resting in bed at time of visit. Spoke with RN, pt now was on NPO, waiting for swallow eval. Pt received swallow eval in the afternoon, failed. ST recommended NPO. Current Diet Order/ Nutrition Support NPO Pertinent Medications D5-0.9%nx, colace, folate, culturelle, theragran, piperacillin, miralax, kcl, vit B1, vancomycin Pertinent Labs 3/5 Na 144, K 3.5, Cl 116, BUN 44, Cr 1.1, Glucose 157 Nutritional Hx/Data Height 1.78 m Height (Calculated Centimeters) 177.8 Current Weight (lbs) 75.296 kg Weight (Calculated Kilograms) 75.3 Weight (Calculated Grams) 05362.3 [place] Body Weight 150 Body Mass Index (BMI) 23.8 Weight Status Approriate GI Symptoms GI Symptoms None Last BM 3/4 Difficult in: None Usual diet at home pt was on [facility] soft chopped diet at [facility] Skin Integrity/Comment: Douglas Gabriel no wound care note at this time Current %PO Negligible < 25% Estimated Nutritional Goals BEE in Kcals: Using Current wt Calories/Kcals/Kg 25-30 Kcals Calculated 0121-4473 Protein: Using Current wt Protein g/k-1.2 Protein Calculated 68-82 Fluid: ml 1700-2040ml (1ml/kcal) Nutritional Problem 1. Problem Problem inadequate energy intake Etiology pt on NPO Signs/Symptoms: PO intake <25% Intervention/Recommendation Comments 1. Monitor NPO status. 2. If TF needed, recommend start Fibersource HN at 20ml/ hr continuous, increase 10ml/ hr q6hr to goal rate of 60ml/ hr as tolerated. This will provide 1728kcal, 78g protein, 1166ml free water, meeting 100% of nutritional needs. 3. Monitor wt, labs and skin integrity 4. F/U as high risk in 2-3 days, 06/24-06/25 Expected Outcomes/Goals Expected Outcomes/Goals 1. Pt to meet at least 75% of nutritional needs via nutrition support 2. Wt stability, skin to remain intact, labs to approach WNL.
[2017-06-24] MEDS: INSULIN ASPART SLIDING SCALE 100 UNITS/ML UNIT SUBQ SCH ×2 (18:35→23:53)
[2017-06-24] MEDS: Azithromycin 500 MG in Sodium Chloride 0.9% 250 ML IV SCH (19:51)
[2017-06-25] MEDS: Lactulose 10 Gm/15 mL 30mL UDC PO SCH ×5 (04:03→20:07)
[2017-06-25] MEDS: metroNIDAZOLE 500mg/NS 100mL 500 MG/100 ML BAG IV SCH ×3 (04:40→21:42)
[2017-06-25 04:53] LABS: HEMATOCRIT 30.7 % (41.0-60); HEMOGLOBIN 10.5 gm/dL (12-16); MEAN CELL VOLUME 103.3 fl (80-99); MEAN CORPUSCULAR HEMOGLOBIN 35.3 pg (27.0-31.0); MEAN CORPUSCULAR HGB CONC 34.2 pg (28.0-36.0); MEAN PLATELET VOLUME 5.7 fl; RED BLOOD COUNT 2.97 Mil/cmm (3.80-5.80); RED CELL DISTRIBUTION WIDTH 16.2 % (11.5-20.0); WHITE BLOOD COUNT 9.1 Th/cmm (4.8-10.8)
[2017-06-25 05:07] LABS: ANION GAP 10.5 (7.0-16.0); BUN - UREA NITROGEN 54 mg/dL (7-25); CALCIUM SERUM 8.2 mg/dL (8.6-10.3); CARBON DIOXIDE 21.5 mEq/L (21.0-31.0); CHLORIDE 120 mEq/L (98-107); CREATININE - SERUM 1.9 mg/dL (0.7-1.3); GLUCOSE 77 mg/dL (70-105); MANUAL DIFF REQUIRED? YES; PHOSPHOROUS 5.3 mg/dL (2.5-5.0); PLATELET COUNT 12 Th/cmm (150-400); SODIUM SERUM 148 mEq/L (136-145)
[2017-06-25] MEDS: INSULIN ASPART SLIDING SCALE 100 UNITS/ML UNIT SUBQ SCH ×3 (06:14→18:00)
[2017-06-25 06:57] LABS: BAND NEUTROPHILE 2 % (0-10); EOSINOPHIL 2 % (0-5); LYMPHOCYTE 4 % (20-50); MONOCYTE 9 % (2-10); NEUTROPHILS 83 % (40-80); PLATELET ESTIMATE DECREASED PLATELETS (NORMAL); TOTAL CELLS COUNTED 100
[2017-06-25] MEDS: Albuterol/Ipratropium Neb 3 ML AERS HHN SCH ×4 (07:33→18:46)
[2017-06-25] MEDS: Albumin 25% 12.5gm/50mL 12.5 GM/50 ML BTL IV SCH ×3 (09:04→23:19)
[2017-06-25] MEDS: Multivitamin Tab PO SCH (09:43)
[2017-06-25] MEDS: Lactobacillus Rhamnosus GG 15 Billion CFU CAP.SPRINK PO SCH (09:43)
[2017-06-25] MEDS: POLYETHYLENE GLYCOL 3350 17 GM PACK PO SCH (09:44)
[2017-06-25] MEDS: Vancomycin HCl 1.5 GM in Sodium Chloride 0.9% 500 ML IV SCH (10:42)
[2017-06-25] MEDS: Venelex 60gm Tube TP SCH (10:42)
[2017-06-25] MEDS: Furosemide 100 MG in Sodium Chloride 0.9% 90 ML IV SCH (11:08)
[2017-06-25] MEDS ORDERED: Dexamethasone Sodium Phos 4 mg/mL Vial IVP SCH (12:30)
--- NOTE | 2017-06-25 12:54 | General Progress Note ---
Subjective - Review of Systems Service Date: 06/25/17 Subjective: obtunded, on BIPAP Objective - Results Result Diagrams: 06/25/17 04:30 06/25/17 04:30 Recent Labs: Laboratory Last Values WBC 9.1 Th/cmm (4.8-10.8) D 06/25/17 04:30 RBC 2.97 Mil/cmm (3.80-5.80) L 06/25/17 04:30 Hgb 10.5 gm/dL (12-16) L 06/25/17 04:30 Hct 30.7 % (41.0-60) L 06/25/17 04:30 MCV 103.3 fl (80-99) H 06/25/17 04:30 MCH 35.3 pg (27.0-31.0) H 06/25/17 04:30 MCHC Differential 34.2 pg (28.0-36.0) 06/25/17 04:30 RDW 16.2 % (11.5-20.0) 06/25/17 04:30 Plt Count 12 Th/cmm (150-400) L* D 06/25/17 04:30 MPV 5.7 fl 06/25/17 04:30 Neutrophils % 88.9 % (40.0-80.0) H 06/24/17 06:00 Band Neutrophils % 2 % (0-10) 06/25/17 04:30 Lymphocytes % 5.5 % (20.0-50.0) L 06/24/17 06:00 Monocytes % 3.7 % (2.0-10.0) 06/24/17 06:00 Eosinophils % 1.9 % (0.0-5.0) 06/24/17 06:00 Basophils % 0.0 % (0.0-2.0) 06/24/17 06:00 Neutrophils (Manual) 83 % (40-80) H 06/25/17 04:30 Lymphocytes 4 % (20-50) L 06/25/17 04:30 Monocytes 9 % (2-10) 06/25/17 04:30 Eosinophils 2 % (0-5) 06/25/17 04:30 Platelet Estimate DECREASED PLATELETS (NORMAL) 06/25/17 04:30 Specimen Source Arterial 06/24/17 16:40 Sample Site Right Radial 06/24/17 16:40 pH 7.38 (7.35-7.45) 06/24/17 16:40 pCO2 36.0 mmHg (35.0-45.0) 06/24/17 16:40 pO2 73.0 mmHg (80.0-100.0) L 06/24/17 16:40 HCO3 22.3 mEq/L (20.0-26.0) 06/24/17 16:40 Base Excess -3.3 mEq/L (-3.0-3.0) L 06/24/17 16:40 O2 Saturation 94.0 % (92.0-100.0) 06/24/17 16:40 Hayden Test PASS 06/24/17 16:40 Vent Rate 12 06/24/17 16:40 Inspired O2 60 06/24/17 16:40 Tidal Volume NA 06/23/17 10:42 PEEP 8 06/23/17 10:42 Pressure (ins/psv/peep) 7 06/24/17 16:40 Critical Value PW 06/24/17 16:40 Sodium 148 mEq/L (136-145) H 06/25/17 04:30 Potassium 4.0 mEq/L (3.5-5.1) 06/25/17 04:30 Chloride 120 mEq/L (98-107) H 06/25/17 04:30 Carbon Dioxide 21.5 mEq/L (21.0-31.0) 06/25/17 04:30 Anion Gap 10.5 (7.0-16.0) 06/25/17 04:30 BUN 54 mg/dL (7-25) H 06/25/17 04:30 Creatinine 1.9 mg/dL (0.7-1.3) H 06/25/17 04:30 Est GFR ( Amer) TNP 06/25/17 04:30 Est GFR (Non-Af Amer) TNP 06/25/17 04:30 BUN/Creatinine Ratio 28.4 06/25/17 04:30 Glucose 180 mg/dL (70-105) H D 06/25/17 06:20 POC Glucose 71 MG/DL (70 - 105) 06/24/17 23:35 Whole Bld Lactic Acid 2.43 mmol/L (0.60-1.99) H* 06/23/17 07:25 Calcium 8.2 mg/dL (8.6-10.3) L 06/25/17 04:30 Phosphorus 5.3 mg/dL (2.5-5.0) H 06/25/17 04:30 Magnesium 2.0 mg/dL (1.9-2.7) 06/25/17 04:30 Total Bilirubin 2.0 mg/dL (0.3-1.0) H 06/22/17 04:30 AST 94 U/L (13-39) H 06/22/17 04:30 ALT 44 U/L (7-52) 06/22/17 04:30 Alkaline Phosphatase 119 U/L (34-104) H 06/22/17 04:30 Ammonia 89 umol/L (16-53) H 06/25/17 04:30 Troponin I 0.02 ng/mL (0.01-0.05) 06/21/17 12:00 B-Natriuretic Peptide 158.0 pg/mL (5.0-100.0) H 06/25/17 04:30 Total Protein 5.8 gm/dL (6.0-8.3) L 06/22/17 04:30 Albumin 2.5 gm/dL (4.2-5.5) L 06/22/17 04:30 Globulin 3.3 gm/dL 06/22/17 04:30 Albumin/Globulin Ratio 0.8 (1.0-1.8) L 06/22/17 04:30 Prealbumin 3 mg/dL (9-32) L 06/24/17 06:00 Triglycerides 23 mg/dL (<150) 06/24/17 09:20 Cholesterol 55 mg/dL (<200) 06/24/17 09:20 Urine Source [place] 06/21/17 18:04 Urine Color ALEKSANDAR 06/21/17 18:04 Urine Clarity CLEAR (CLEAR) 06/21/17 18:04 Urine pH 5.0 (4.6 - 8.0) 06/21/17 18:04 Ur Specific [place] >= 1.030 (1.005-1.030) 06/21/17 18:04 Urine Protein TRACE mg/dL (NEGATIVE) 06/21/17 18:04 Urine Glucose (UA) NEGATIVE mg/dL (NEGATIVE) 06/21/17 18:04 Urine Ketones NEGATIVE mg/dL (NEGATIVE) 06/21/17 18:04 Urine Blood NEGATIVE (NEGATIVE) 06/21/17 18:04 Urine Nitrate NEGATIVE (NEGATIVE) 06/21/17 18:04 Urine Bilirubin NEGATIVE (NEGATIVE) 06/21/17 18:04 Urine Urobilinogen 1.0 E.U./dL (0.2 - 1.0) 06/21/17 18:04 Ur Leukocyte Esterase NEGATIVE (NEGATIVE) 06/21/17 18:04 Urine RBC 0-2 /hpf (0-5) H 06/21/17 18:04 Urine WBC 2-5 /hpf (0-5) 06/21/17 18:04 Ur Epithelial Cells OCCASIONAL /lpf (FEW) 06/21/17 18:04 Urine Bacteria FEW /hpf (NONE SEEN) 06/21/17 18:04 Vancomycin Trough 17.7 ug/mL (10-20) 06/24/17 09:20 Ur L.pneumophila Ag Negative (Negative) 06/22/17 10:45 Blood Type O NEGATIVE 06/25/17 09:48 Antibody Screen NEGATIVE 06/25/17 09:48 - Physical Exam Vitals and I&O: Vital Signs Temp 98 F 06/25/17 07:00 Pulse 110 06/25/17 09:00 Resp 16 06/25/17 07:34 BP 126/55 06/25/17 09:00 Pulse Ox 98 06/25/17 07:34 Intake & Output 06/24/17 06/25/17 06/25/17 18:59 06:59 18:59 Intake Total 5393.744 5296.09 136.333 Output Total 500 Balance 1063.536 552.09 136.333 Weight (lbs) 75.296 kg Intake: Intake, IV Amount 7618.753 7363.09 136.333 Albumin 25% 12.5gm/50mL 50 50 50 12.5 gm In 50 ml @ 50 mls /hr IV Q8H [facility] Rx#: [id number] Azithromycin 500 mg In 250 Sodium Chloride 0.9% 250 ml @ 250 mls/hr IV Q24HR [facility] Rx#:[id number] D5-0.9%Ns 1,000 ml @ 30 379.5 mls/hr IV .Q24H [facility] Rx#: [id number] Furosemide 100 mg In 86.333 Sodium Chloride 0.9% 90 ml @ 5 mls/hr IV TITR [facility] Rx#:[id number] KCL 20mEq/100mL Premix 20 61.667 meq In 100 ml @ 50 mls/ hr IV Q2H [facility] Rx#: [id number] Norepinephrine 4 mg In 116.459 Dextrose 5% 250 ml @ Per Protocol IV TITR PRN Rx#: [id number] Norepinephrine 8 mg In 185.410 72.59 Sodium Chloride 0.9% 250 ml @ 0 MCG/MIN IV TITR PRN Rx#:[id number] Piperacillin Sodium/ 50 100 Tazobact 3.375 gm In Sodium Chloride 0.9% 50 ml @ 100 mls/hr IV Q8HR [facility] Rx#:[id number] Vancomycin HCl 1.5 gm In 500 Sodium Chloride 0.9% 500 ml @ 250 mls/hr IV Q24H [facility] Rx#:[id number] metroNIDAZOLE 500mg/NS 100 200 100mL 500 mg In 100 ml @ 100 mls/hr IV Q8HR [facility] Rx #:[id number] Output: Urine 500 Active Medications: Current Medications Acetaminophen (Tylenol) 650 mg PO Q4HR PRN PRN Reason: Mild Pain / Temp above 100 Stop: 08/19/17 21:52 Al Hydrox/Mg Hydrox/Simethicone (Maalox) 30 ml PO Q4HR PRN PRN Reason: GI DISTRESS Stop: 08/19/17 21:52 Albuterol/Ipratropium (Duoneb Neb) 3 ml HHN [id number] [facility] Stop: 08/20/17 18:59 Last Admin: 06/25/17 07:33 Dose: 3 ml Raeford Oil/Bulgarian Balsam/Trypsin (Venelex) 1 appl TP DAILY [facility] Stop: 08/22/17 16:14 Last Admin: 06/25/17 10:42 Dose: 1 appl Dexamethasone Sodium Phosphate (Decadron) 40 mg IVP DAILY [facility] Stop: 06/29/17 12:29 Dextrose (D50w) 50 ml IVP PRN PRN PRN Reason: Blood Glucose less than 70 Stop: 08/23/17 16:16 Last Admin: 06/25/17 06:03 Dose: 50 ml Dextrose (Glutose 40%) 18.75 gm PO PRN PRN PRN Reason: Blood Glucose less than 70 Stop: 08/23/17 16:16 Docusate Sodium (Colace) 250 mg PO BID [facility] Stop: 08/20/17 08:59 Last Admin: 06/25/17 09:43 Dose: Not Given Donepezil HCl (Aricept) 5 mg PO HS [facility] Stop: 08/20/17 20:59 Last Admin: 06/24/17 21:04 Dose: Not Given Folic Acid (Folate) 1 mg PO DAILY [facility] Stop: 08/20/17 08:59 Last Admin: 06/25/17 09:43 Dose: Not Given Glucagon (Glucagen) 1 mg IM PRN PRN PRN Reason: Blood Glucose less than 70 Stop: 08/23/17 16:16 Azithromycin 500 mg/ Sodium (Chloride) 250 mls @ 250 mls/hr IV Q24HR [facility] Stop: 08/19/17 19:44 Last Infusion: 06/24/17 20:51 Dose: Infused Metronidazole (Flagyl) 500 mg in 100 mls @ 100 mls/hr IV Q8HR [facility] Stop: 08/21/17 12:59 Last Infusion: 06/25/17 06:14 Dose: Infused Vancomycin HCl 1.5 gm/ Sodium (Chloride) 500 mls @ 250 mls/hr IV Q24H [facility] Stop: 08/22/17 09:59 Last Admin: 06/25/17 10:42 Dose: 250 mls/hr Norepinephrine Bitartrate 8 mg (/ Sodium Chloride) 258 mls @ 0 mls/hr IV TITR PRN; Protocol; 0 MCG/MIN PRN Reason: BP MAINTENANCE (PER PROTOCOL) Stop: 08/20/17 09:59 Last Admin: 06/24/17 22:24 Dose: 10 mcg/min, 19.35 mls/hr Dextrose/Sodium Chloride (D5-0.9%Ns) 1,000 mls @ 30 mls/hr IV .Q24H [facility] Stop: 06/25/17 14:59 Last Infusion: 06/25/17 06:00 Dose: 30 mls/hr Furosemide 100 mg/ Sodium (Chloride) 100 mls @ 5 mls/hr IV TITR [facility] Stop: 08/23/17 16:29 Last Admin: 06/25/17 11:08 Dose: 5 mls/hr Albumin Human (Albutein 25%) 12.5 gm in 50 mls @ 50 mls/hr IV Q8H [facility] Stop: 06/27/17 08:01 Last Infusion: 06/25/17 10:05 Dose: Infused Dextrose/Sodium Chloride (D5-0.9%Ns) 1,000 mls @ 10 mls/hr IV .Q24H [facility] Stop: 08/24/17 14:59 Multivitamins/Minerals 10 ml/Dextrose/ Amino Acids/Electrolytes/ Fat Emulsion Intravenous 960 mls @ 40 mls/hr IV .Q24H [facility] Stop: 08/24/17 14:59 Insulin Aspart (Novolog Insulin Sliding Scale) 0 units SUBQ Q6HR [facility] PRN Reason: Protocol Stop: 08/23/17 17:59 Last Admin: 06/25/17 06:14 Dose: Not Given Lactobacillus Rhamnosus (Culturelle 15b) 1 each PO DAILY [facility] Stop: 08/20/17 08:59 Last Admin: 06/25/17 09:43 Dose: Not Given Lactulose (Cephulac) 30 gm PO Q4HR [facility] Stop: 08/23/17 15:59 Last Admin: 06/25/17 09:43 Dose: Not Given Latanoprost (Xalatan 0.005% Oph Soln) 1 drop EACH EYE HS [facility] Stop: 08/19/17 20:59 Last Admin: 06/24/17 22:24 Dose: 1 drop Lorazepam (Ativan) 1 mg PO Q4HR PRN PRN Reason: Agitation Stop: 08/19/17 20:16 Lorazepam (Ativan) 1 mg IVP Q4HR PRN; Protocol PRN Reason: Agitation Stop: 08/22/17 08:56 Last Admin: 06/23/17 22:13 Dose: 1 mg Memantine (Namenda) 5 mg PO BID [facility] Stop: 08/20/17 08:59 Last Admin: 06/25/17 09:43 Dose: Not Given Miscellaneous (Vancomycin Iv Per Pharmacy) 1 ea MC PRN PRN PRN Reason: PROTOCOL Stop: 08/21/17 14:04 Miscellaneous (Tpn Per Pharmacy) 1 ea MC PRN PRN PRN Reason: PROTOCOL Stop: 08/23/17 15:17 Morphine Sulfate (Morphine) 1 mg IVP Q4HR PRN PRN Reason: Pain (Severe) Stop: 08/22/17 08:57 Last Admin: 06/24/17 06:21 Dose: 1 mg Multivitamins/Vitamin C (Theragran) 1 tab PO DAILY [facility] Stop: 08/20/17 08:59 Last Admin: 06/25/17 09:43 Dose: Not Given Pantoprazole Sodium (Protonix) 40 mg IVP DAILY [facility] Stop: 08/21/17 20:59 Last Admin: 06/25/17 09:05 Dose: 40 mg Polyethylene Glycol (Miralax) 17 gm PO DAILY [facility] Stop: 08/20/17 08:59 Last Admin: 06/25/17 09:44 Dose: Not Given Rifaximin (Xifaxan) 600 mg PO BID [facility] Stop: 08/23/17 16:59 Last Admin: 06/25/17 09:44 Dose: Not Given Sodium Phosphate (Fleet Enema) 135 ml RC PRN PRN PRN Reason: Constipation Stop: 08/19/17 20:23 Last Admin: 06/23/17 22:48 Dose: 135 ml Tamsulosin HCl (Flomax) 0.4 mg PO HS [facility] Stop: 08/19/17 20:59 Last Admin: 06/24/17 21:05 Dose: Not Given Thiamine HCl (Vitamin B1) 100 mg PO DAILY [facility] Stop: 08/20/17 08:59 Last Admin: 06/25/17 09:44 Dose: Not Given Zolpidem Tartrate (Ambien) 5 mg PO HS PRN PRN Reason: Insomnia Stop: 08/19/17 20:19 General: Moderate distress HEENT: Atraumatic, Mucous membr. moist/pink Neck: Supple, +2 carotid pulse wo bruit Cardiovascular: Regular rate, Normal S1, Normal S2 Lungs: Other (coarse rhonchi, congestion) Abdomen: Soft Extremities: Edema, Other (bipedal edema, Upper ext edema) Neurological: Sensation intact Skin: no Rash Psych/Mental Status: Mood NL Assessment/Plan - Assessment Assessment: Shock 2/2 possible HAP Resp failure on BIPAP 2/2 to decomp CHF, Left HAP CHF/ Pul edema Thrombocytopenia 2/2 Cirrhosis, possibly sepsis, DIC, meds (Zosyn/Vanco) Hx Ascites Psychosis Peripheral edema Met Enceph - Plan Plan: Lab - Result Diagrams 06/24/17 06:00 06/24/17 06:00 Current Medications Acetaminophen (Tylenol) 650 mg PO Q4HR PRN PRN Reason: Mild Pain / Temp above 100 Stop: 08/19/17 21:52 Al Hydrox/Mg Hydrox/Simethicone (Maalox) 30 ml PO Q4HR PRN PRN Reason: GI DISTRESS Stop: 08/19/17 21:52 Albuterol/Ipratropium (Duoneb Neb) 3 ml HHN [id number] [facility] Stop: 08/20/17 18:59 Last Admin: 06/24/17 11:56 Dose: 3 ml Raeford Oil/Bulgarian Balsam/Trypsin (Venelex) 1 appl TP DAILY [facility] Stop: 08/22/17 16:14 Last Admin: 06/24/17 09:56 Dose: 1 appl Docusate Sodium (Colace) 250 mg PO BID [facility] Stop: 08/20/17 08:59 Last Admin: 06/24/17 09:59 Dose: Not Given Donepezil HCl (Aricept) 5 mg PO HS [facility] Stop: 08/20/17 20:59 Last Admin: 06/23/17 20:33 Dose: Not Given Folic Acid (Folate) 1 mg PO DAILY [facility] Stop: 08/20/17 08:59 Last Admin: 06/24/17 09:59 Dose: Not Given Furosemide (Lasix) 20 mg IVP DAILY [facility] Stop: 08/22/17 08:59 Last Admin: 06/24/17 09:56 Dose: 20 mg Azithromycin 500 mg/ Sodium (Chloride) 250 mls @ 250 mls/hr IV Q24HR [facility] Stop: 08/19/17 19:44 Last Infusion: 06/23/17 22:21 Dose: Infused Dextrose/Sodium Chloride (D5-0.9%Ns) 1,000 mls @ 70 mls/hr IV .[id number] [facility] Stop: 08/21/17 09:27 Last Admin: 06/23/17 03:00 Dose: 70 mls/hr Metronidazole (Flagyl) 500 mg in 100 mls @ 100 mls/hr IV Q8HR [facility] Stop: 08/21/17 12:59 Last Admin: 06/24/17 13:30 Dose: 100 mls/hr Piperacillin Sod/Tazobactam (Sod 3.375 gm/ Sodium Chloride) 50 mls @ 100 mls/ hr IV Q8HR [facility] Stop: 08/21/17 20:59 Last Infusion: 06/24/17 14:24 Dose: Infused Vancomycin HCl 1.5 gm/ Sodium (Chloride) 500 mls @ 250 mls/hr IV Q24H [facility] Stop: 08/22/17 09:59 Last Infusion: 06/24/17 14:24 Dose: Infused Norepinephrine Bitartrate 8 mg (/ Sodium Chloride) 258 mls @ 0 mls/hr IV TITR PRN; Protocol; 0 MCG/MIN PRN Reason: BP MAINTENANCE (PER PROTOCOL) Stop: 08/20/17 09:59 Last Titration: 06/24/17 14:00 Dose: 10 mcg/min, 19.35 mls/hr Lactobacillus Rhamnosus (Culturelle 15b) 1 each PO DAILY [facility] Stop: 08/20/17 08:59 Last Admin: 06/24/17 10:00 Dose: Not Given Lactulose (Cephulac) 30 gm PO Q4HR [facility] Stop: 08/23/17 15:59 Latanoprost (Xalatan 0.005% [facility]) 1 drop EACH EYE HS [facility] Stop: 08/19/17 20:59 Last Admin: 06/23/17 20:33 Dose: 1 drop Lorazepam (Ativan) 1 mg PO Q4HR PRN PRN Reason: Agitation Stop: 08/19/17 20:16 Lorazepam (Ativan) 1 mg IVP Q4HR PRN; Protocol PRN Reason: Agitation Stop: 08/22/17 08:56 Last Admin: 06/23/17 22:13 Dose: 1 mg Memantine (Namenda) 5 mg PO BID [facility] Stop: 08/20/17 08:59 Last Admin: 06/24/17 10:00 Dose: Not Given Miscellaneous (Vancomycin Iv Per Pharmacy) 1 ea [facility] PRN PRN PRN Reason: PROTOCOL Stop: 08/21/17 14:04 Morphine Sulfate (Morphine) 1 mg IVP Q4HR PRN PRN Reason: Pain (Severe) Stop: 08/22/17 08:57 Last Admin: 06/24/17 06:21 Dose: 1 mg Multivitamins/Vitamin C (Theragran) 1 tab PO DAILY [facility] Stop: 08/20/17 08:59 Last Admin: 06/24/17 10:00 Dose: Not Given Pantoprazole Sodium (Protonix) 40 mg IVP DAILY [facility] Stop: 08/21/17 20:59 Last Admin: 06/24/17 09:56 Dose: 40 mg Polyethylene Glycol (Miralax) 17 gm PO DAILY [facility] Stop: 08/20/17 08:59 Last Admin: 06/24/17 10:01 Dose: Not Given Rifaximin (Xifaxan) 600 mg PO BID [facility] Stop: 08/23/17 16:59 Sodium Phosphate (Fleet Enema) 135 ml RC PRN PRN PRN Reason: Constipation Stop: 08/19/17 20:23 Last Admin: 06/23/17 22:48 Dose: 135 ml Tamsulosin HCl (Flomax) 0.4 mg PO HS [facility] Stop: 08/19/17 20:59 Last Admin: 06/23/17 20:33 Dose: Not Given Thiamine HCl (Vitamin B1) 100 mg PO DAILY [facility] Stop: 08/20/17 08:59 Last Admin: 06/24/17 10:01 Dose: Not Given Zolpidem Tartrate (Ambien) 5 mg PO HS PRN PRN Reason: Insomnia Stop: 08/19/17 20:19 Lab - Result Diagrams 06/24/17 06:00 06/24/17 06:00 DC lasix IVP, switch to drip, albumin infusion decrease rate ivf continue Levophed 6 mcg replace K f/u electrolytes, cbc CXR Nutritional Asmnt/Malnutr-PDOC - Dietary Evaluation Malnutrition Findings (Please click <Entered> for more info): Nutritional Asmnt/Malnutrition Start: 06/22/17 16: 04 Text: Status: Complete Freq: Document 06/22/17 16:04 [place] (Rec: 06/22/17 16:23 [facility] Nutritional Asmnt/Malnutrition Patient General Information Nutritional Screening High Risk Diagnosis hypovolemic shock, R/O sepsis Pertinent Medical Hx/Surgical Hx psychosis, alzheimer dementia, ascites, liver cirrhosis, ileus diverticulosis Subjective Information Consult received for wound. Pt seen resting in bed at time of visit. Spoke with RN, pt now was on NPO, waiting for swallow eval. Pt received swallow eval in the afternoon, failed. ST recommended NPO. Current Diet Order/ Nutrition Support NPO Pertinent Medications D5-0.9%nx, colace, folate, culturelle, theragran, piperacillin, miralax, kcl, vit B1, vancomycin Pertinent Labs 3 Na 144, K 3.5, Cl 116, BUN 44, Cr 1.1, Glucose 157 Nutritional Hx/Data Height 1.78 m Height (Calculated Centimeters) 177.8 Current Weight (lbs) 75.296 kg Weight (Calculated Kilograms) 75.3 Weight (Calculated Grams) 48610.3 [place] Body Weight 150 Body Mass Index (BMI) 23.8 Weight Status Approriate GI Symptoms GI Symptoms None Last BM 3/4 Difficult in: None Usual diet at home pt was on the [facility] soft chopped diet at [facility] Skin Integrity/Comment: Douglas Gabriel no wound care note at this time Current %PO Negligible < 25% Estimated Nutritional Goals BEE in Kcals: Using Current wt Calories/Kcals/Kg 25-30 Kcals Calculated 3803-7807 Protein: Using Current wt Protein g/k-1.2 Protein Calculated 68-82 Fluid: ml 1700-2040ml (1ml/kcal) Nutritional Problem 1. Problem Problem inadequate energy intake Etiology pt on NPO Signs/Symptoms: PO intake <25% Intervention/Recommendation Comments 1. Monitor NPO status. 2. If TF needed, recommend start Fibersource HN at 20ml/ hr continuous, increase 10ml/ hr q6hr to goal rate of 60ml/ hr as tolerated. This will provide 1728kcal, 78g protein, 1166ml free water, meeting 100% of nutritional needs. 3. Monitor wt, labs and skin integrity 4. F/U as high risk in 2-3 days, 06/24-06/25 Expected Outcomes/Goals Expected Outcomes/Goals 1. Pt to meet at least 75% of nutritional needs via nutrition support 2. Wt stability, skin to remain intact, labs to approach WNL.
[2017-06-25 13:05] LABS: INR 1.91 (0.5-1.4); PROTHROMBIN TIME (TEST) 20.6 SECONDS (9.5-11.5)
--- NOTE | 2017-06-25 13:37 | Consultation ---
DATE OF CONSULTATION: 06/25/2017 HEMATOLOGY-ONCOLOGY CONSULTATION REFERRING PHYSICIAN: Dr. Cook. REASON FOR CONSULTATION: Severe thrombocytopenia. HISTORY OF PRESENT ILLNESS: The patient is an 82-year-old male who was admitted to the ICU with hypertension, currently on vasopressors ____ multiple antibiotics including vancomycin and Zosyn. His platelet count from admission was more than 100,000 and today it is 12,000. Therefore, I was asked to evaluate. There is no active bleeding. PAST MEDICAL HISTORY: Alzheimer's, liver cirrhosis, ileus, and diverticulosis. SOCIAL HISTORY: Not available. MEDICATIONS: Reviewed. PHYSICAL EXAMINATION: GENERAL: The patient is opening eyes, noncommunicative, on Levophed drip. VITAL SIGNS: Blood pressure systolic 90-100. HEENT: No mucosal bleeding. NECK: No lymphadenopathy. CHEST: Equal air entry. Scattered rhonchi. ABDOMEN: Soft. EXTREMITIES: Wasted muscles. LABORATORY DATA: Creatinine 1.9, from admission creatinine was 1.1. White count 9.1. The patient had leukocytosis and now he has a false normal white count, hemoglobin 10.5. Liver function labs were available from 3 days ago. ASSESSMENT: 1. Septic shock with acute renal failure and respiratory failure secondary to pneumonia. 2. Recent drop in platelets most likely multifactorial from bone marrow suppression from the infection with possible disseminated intravascular coagulation, also possible ITP given the fact that the platelets drop ____ in the past couple of days. Drug-induced etiology is also a possibility with the Protonix and Zosyn. Therefore, I recommend to obtain liver functions and DIC panel. Discontinue Zosyn. Start IV steroids and transfuse 1 unit of platelets. Follow coagulation parameters closely. Thank you, Dr. Cook for the opportunity to participate in the care of this interesting case for you. JOB# [id number]
[2017-06-25] MEDS: Dexamethasone Sodium Phos 10 mg/mL PF Vial IVP SCH (13:39)
[2017-06-25] MEDS ORDERED: TPN 10%-70% CUSTOM IV SCH (15:00)
[2017-06-25] MEDS ORDERED: D5-0.9%NS 1,000 ML IV SCH (15:00)
[2017-06-25] MEDS: Azithromycin 500 MG in Sodium Chloride 0.9% 250 ML IV SCH (20:05)
--- NOTE | 2017-06-25 23:20 | Consultation ---
DATE OF CONSULTATION: 06/25/2017 INPATIENT GASTROINTESTINAL CONSULTATION REFERRING PHYSICIAN: Dr. Cook. REASON FOR CONSULTATION: Dysphagia. HISTORY OF PRESENT ILLNESS: This is an 82-year-old male who has underlying psychosis, was transferred to the ICU because of hypotension. The patient is otherwise a poor historian, unable to give any meaningful history. We are asked to see the patient for consideration of feeding tube placement. PAST MEDICAL HISTORY: Psychosis, Alzheimer's dementia, ascites, liver cirrhosis, ileus, and diverticulosis. PAST SURGICAL HISTORY: Unknown. FAMILY HISTORY: Noncontributory. SOCIAL HISTORY: No tobacco, alcohol, or IV drug usage. ALLERGIES: None. CURRENT MEDICATIONS: Tylenol, Maalox, azithromycin, Decadron, Colace, Aricept, folic acid, insulin, lactulose, Ativan, Namenda, Flagyl, vancomycin, TPN, norepinephrine, Protonix, MiraLax, Xifaxan, Fleet enema, and Ambien. REVIEW OF SYSTEMS: Unobtainable. PHYSICAL EXAMINATION: VITAL SIGNS: Temperature is 98, breathing 16, pulse of 99, blood pressure 126/52, and satting 95% on a mask. GENERAL: Thin, in no apparent distress. EYES: Icteric bilaterally. NECK: Soft and supple. CHEST: Coarse breath sounds. CARDIOVASCULAR: Regular rate and rhythm. ABDOMEN: Soft, distended, and nontender. Decreased bowel sounds. SKIN: Warm and dry. EXTREMITIES: Revealed no cyanosis. LABORATORY DATA: Show a white count of 9.1, hemoglobin 10.5, and platelets of 12. Total bilirubin is 2, AST is 94, ALT is 44, and alkaline phosphatase is 119. Ammonia is 89. IMPRESSION: This is an 82-year-old male with cirrhosis and having dysphagia. PEG tube is being considered, but would be high risk for this patient given his significant thrombocytopenia with a platelet count of 12. In addition, he has ascites, which would cause leakage and therefore, PEG option is not attractive. NG tube was attempted by staff, but this would also be a challenge with a low platelet count of causing epistaxis. Furthermore, taking off the face mask to insert the NG tube result in the patient desaturating. Therefore, this is also not a good option. Options remained at this time would be to TPN for nutrition and consider hospice. PLAN: 1. Case was discussed with Dr. Cook. 2. Continue TPN. 3. Agree with hospice consideration. 4. PEG was considered, but deemed to be high risk. 5. NG tube insertion was also considered, but deemed to be high risk because the patient desaturates off face mask. Thank you for allowing me to participate. Please call me if any questions. JOB# [id number]
[2017-06-26] MEDS: INSULIN ASPART SLIDING SCALE 100 UNITS/ML UNIT SUBQ SCH ×4 (00:21→18:52)
[2017-06-26] MEDS: Lactulose 10 Gm/15 mL 30mL UDC PO SCH ×5 (00:25→17:11)
[2017-06-26] MEDS: Morphine Sulfate 4 mg/mL 1mL Syr IVP PRN (04:53)
[2017-06-26] MEDS: metroNIDAZOLE 500mg/NS 100mL 500 MG/100 ML BAG IV SCH ×2 (04:54→13:11)
[2017-06-26] MEDS: Furosemide 100 MG in Sodium Chloride 0.9% 90 ML IV SCH (07:10)
[2017-06-26] MEDS: Albuterol/Ipratropium Neb 3 ML AERS HHN SCH ×3 (07:28→18:44)
[2017-06-26] MEDS: Albumin 25% 12.5gm/50mL 12.5 GM/50 ML BTL IV SCH ×2 (08:19→17:02)
--- NOTE | 2017-06-26 08:41 | Diagnostic Imaging Report ---
CHEST X-RAY: AP view INDICATION: CHF COMPARISON: 06/24/2017 FINDINGS: Left PICC line is stable. Persistent CHF is seen bilateral effusions and diffuse infiltrates. Heart size is borderline prominent. IMPRESSION: Persistent CHF with bilateral diffuse infiltrates and effusions.
[2017-06-26] MEDS: Dexamethasone Sodium Phos 10 mg/mL PF Vial IVP SCH (09:00)
[2017-06-26] MEDS: Lactobacillus Rhamnosus GG 15 Billion CFU CAP.SPRINK PO SCH (09:00)
[2017-06-26] MEDS: POLYETHYLENE GLYCOL 3350 17 GM PACK PO SCH (09:00)
[2017-06-26 09:38] LABS: HEMOGLOBIN 9.9 gm/dL (12-16); MEAN CELL VOLUME 104.7 fl (80-99); MEAN CORPUSCULAR HEMOGLOBIN 35.6 pg (27.0-31.0); MEAN PLATELET VOLUME 7.3 fl; RED BLOOD COUNT 2.77 Mil/cmm (3.80-5.80)
[2017-06-26 09:42] LABS: PLATELET COUNT 25 Th/cmm (150-400)
[2017-06-26 09:43] LABS: % EOSINOPHILS 0.1 % (0.0-5.0); % MONOCYTES 1.9 % (2.0-10.0); LYMPHOCYTE ABSOLUTE 0.4 Th/cmm (1.5-3.0); MONOCYTE ABSOLUTE 0.2 Th/cmm (0.3-1.0); NEUTROPHILE ABSOLUTE 8.4 Th/cmm (1.8-8.0)
[2017-06-26 09:53] LABS: ALBUMIN 2.6 gm/dL (4.2-5.5); ALKALINE PHOSPHATASE 112 U/L (34-104); BILIRUBIN,TOTAL 2.4 mg/dL (0.3-1.0); BUN - UREA NITROGEN 63 mg/dL (7-25); CALCIUM SERUM 8.9 mg/dL (8.6-10.3); CARBON DIOXIDE 22.8 mEq/L (21.0-31.0); CHLORIDE 119 mEq/L (98-107); CREATININE - SERUM 2.1 mg/dL (0.7-1.3); GLUCOSE 159 mg/dL (70-105); MAGNESIUM 2.4 mg/dL (1.9-2.7); PHOSPHOROUS 4.1 mg/dL (2.5-5.0); SGOT 64 U/L (13-39); SGPT/ALT 32 U/L (7-52); SODIUM SERUM 149 mEq/L (136-145); TOTAL PROTEIN,SERUM 5.2 gm/dL (6.0-8.3)
[2017-06-26 09:55] LABS: POTASSIUM SERUM 2.8 mEq/L (3.5-5.1)
--- NOTE | 2017-06-26 10:20 | GI Progress Note ---
Subjective - Review of Systems Subjective: NO EVENTS Objective - Results Result Diagrams: 06/26/17 09:00 06/26/17 09:00 Recent Labs: Laboratory Last Values WBC 9.0 Th/cmm (4.8-10.8) 06/26/17 09:00 RBC 2.77 Mil/cmm (3.80-5.80) L 06/26/17 09:00 Hgb 9.9 gm/dL (12-16) L 06/26/17 09:00 Hct 29.0 % (41.0-60) L 06/26/17 09:00 MCV 104.7 fl (80-99) H 06/26/17 09:00 MCH 35.6 pg (27.0-31.0) H 06/26/17 09:00 MCHC Differential 34.0 pg (28.0-36.0) 06/26/17 09:00 RDW 16.0 % (11.5-20.0) 06/26/17 09:00 Plt Count 25 Th/cmm (150-400) L* 06/26/17 09:00 MPV 7.3 fl 06/26/17 09:00 Neutrophils % 94.0 % (40.0-80.0) H 06/26/17 09:00 Band Neutrophils % 2 % (0-10) 06/25/17 04:30 Lymphocytes % 4.0 % (20.0-50.0) L 06/26/17 09:00 Monocytes % 1.9 % (2.0-10.0) L 06/26/17 09:00 Eosinophils % 0.1 % (0.0-5.0) 06/26/17 09:00 Basophils % 0.0 % (0.0-2.0) 06/26/17 09:00 Neutrophils (Manual) 83 % (40-80) H 06/25/17 04:30 Lymphocytes 4 % (20-50) L 06/25/17 04:30 Monocytes 9 % (2-10) 06/25/17 04:30 Eosinophils 2 % (0-5) 06/25/17 04:30 Platelet Estimate DECREASED PLATELETS (NORMAL) 06/25/17 04:30 PT 20.6 SECONDS (9.5-11.5) H 06/25/17 12:44 INR 1.91 (0.5-1.4) H 06/25/17 12:44 PTT (Actin FS) 86.0 SECONDS (26.0-38.0) H* 06/26/17 09:00 Fibrinogen 236.0 mg/dL (200.0-400.0) 06/26/17 09:00 Specimen Source Arterial 06/24/17 16:40 Sample Site Right Radial 06/24/17 16:40 pH 7.38 (7.35-7.45) 06/24/17 16:40 pCO2 36.0 mmHg (35.0-45.0) 06/24/17 16:40 pO2 73.0 mmHg (80.0-100.0) L 06/24/17 16:40 HCO3 22.3 mEq/L (20.0-26.0) 06/24/17 16:40 Base Excess -3.3 mEq/L (-3.0-3.0) L 06/24/17 16:40 O2 Saturation 94.0 % (92.0-100.0) 06/24/17 16:40 [place]den Test PASS 06/24/17 16:40 Vent Rate 12 06/24/17 16:40 Inspired O2 60 06/24/17 16:40 Tidal Volume NA 06/23/17 10:42 PEEP 8 06/23/17 10:42 Pressure (ins/psv/peep) 7 06/24/17 16:40 Critical Value PW 06/24/17 16:40 Sodium 149 mEq/L (136-145) H 06/26/17 09:00 Potassium 2.8 mEq/L (3.5-5.1) L* D 06/26/17 09:00 Chloride 119 mEq/L (98-107) H 06/26/17 09:00 Carbon Dioxide 22.8 mEq/L (21.0-31.0) 06/26/17 09:00 Anion Gap 10.0 (7.0-16.0) 06/26/17 09:00 BUN 63 mg/dL (7-25) H 06/26/17 09:00 Creatinine 2.1 mg/dL (0.7-1.3) H 06/26/17 09:00 Est GFR ( Amer) TNP 06/26/17 09:00 Est GFR (Non-Af Amer) TNP 06/26/17 09:00 BUN/Creatinine Ratio 30.0 06/26/17 09:00 Glucose 159 mg/dL (70-105) H 06/26/17 09:00 POC Glucose 134 MG/DL (70 - 105) H 06/26/17 06:00 Whole Bld Lactic Acid 2.99 mmol/L (0.60-1.99) H* 06/26/17 09:00 Calcium 8.9 mg/dL (8.6-10.3) 06/26/17 09:00 Phosphorus 4.1 mg/dL (2.5-5.0) 06/26/17 09:00 Magnesium 2.4 mg/dL (1.9-2.7) 06/26/17 09:00 Total Bilirubin 2.4 mg/dL (0.3-1.0) H 06/26/17 09:00 AST 64 U/L (13-39) H 06/26/17 09:00 ALT 32 U/L (7-52) 06/26/17 09:00 Alkaline Phosphatase 112 U/L (34-104) H 06/26/17 09:00 Ammonia 89 umol/L (16-53) H 06/25/17 04:30 Troponin I 0.02 ng/mL (0.01-0.05) 06/21/17 12:00 B-Natriuretic Peptide 195.0 pg/mL (5.0-100.0) H 06/26/17 09:00 Total Protein 5.2 gm/dL (6.0-8.3) L 06/26/17 09:00 Albumin 2.6 gm/dL (4.2-5.5) L 06/26/17 09:00 Globulin 2.6 gm/dL 06/26/17 09:00 Albumin/Globulin Ratio 1.0 (1.0-1.8) 06/26/17 09:00 Prealbumin 3 mg/dL (9-32) L 06/24/17 06:00 Triglycerides 23 mg/dL (<150) 06/24/17 09:20 Cholesterol 55 mg/dL (<200) 06/24/17 09:20 Urine Source [place] 06/21/17 18:04 Urine Color ALEKSANDAR 06/21/17 18:04 Urine Clarity CLEAR (CLEAR) 06/21/17 18:04 Urine pH 5.0 (4.6 - 8.0) 06/21/17 18:04 Ur Specific [place] >= 1.030 (1.005-1.030) 06/21/17 18:04 Urine Protein TRACE mg/dL (NEGATIVE) 06/21/17 18:04 Urine Glucose (UA) NEGATIVE mg/dL (NEGATIVE) 06/21/17 18:04 Urine Ketones NEGATIVE mg/dL (NEGATIVE) 06/21/17 18:04 Urine Blood NEGATIVE (NEGATIVE) 06/21/17 18:04 Urine Nitrate NEGATIVE (NEGATIVE) 06/21/17 18:04 Urine Bilirubin NEGATIVE (NEGATIVE) 06/21/17 18:04 Urine Urobilinogen 1.0 E.U./dL (0.2 - 1.0) 06/21/17 18:04 Ur Leukocyte Esterase NEGATIVE (NEGATIVE) 06/21/17 18:04 Urine RBC 0-2 /hpf (0-5) H 06/21/17 18:04 Urine WBC 2-5 /hpf (0-5) 06/21/17 18:04 Ur Epithelial Cells OCCASIONAL /lpf (FEW) 06/21/17 18:04 Urine Bacteria FEW /hpf (NONE SEEN) 06/21/17 18:04 Vancomycin Trough 30.0 ug/mL (10-20) H 06/26/17 09:00 Ur L.pneumophila Ag Negative (Negative) 06/22/17 10:45 Blood Type O NEGATIVE 06/25/17 09:48 Antibody Screen NEGATIVE 06/25/17 09:48 - Physical Exam Vitals and I&O: Vital Signs Temp 97.4 F 06/26/17 04:00 Pulse 91 06/26/17 07:28 Resp 12 06/26/17 07:28 BP 134/70 06/26/17 07:10 Pulse Ox 93 06/26/17 07:28 Intake & Output 06/25/17 06/26/17 06/26/17 18:59 06:59 18:59 Intake Total 1071.230 820 100 Output Total 1975 Balance 1071.230 -1155 100 Weight (lbs) 116.12 kg Intake: Intake, IV Amount 1071.230 150 100 Albumin 25% 12.5gm/50mL 100 50 12.5 gm In 50 ml @ 50 mls /hr IV Q8H [facility] Rx#: [id number] Furosemide 100 mg In 86.333 100 Sodium Chloride 0.9% 90 ml @ 5 mls/hr IV TITR [facility] Rx#:[id number] Norepinephrine 8 mg In 284.897 Sodium Chloride 0.9% 250 ml @ 0 MCG/MIN IV TITR PRN Rx#:[id number] Vancomycin HCl 1.5 gm In 500 Sodium Chloride 0.9% 500 ml @ 250 mls/hr IV Q24H [facility] Rx#:[id number] metroNIDAZOLE 500mg/NS 100 100 100mL 500 mg In 100 ml @ 100 mls/hr IV Q8HR [facility] Rx #:[id number] Oral 0 TPN/PPN 140 Blood Product 480 Albumin 50 Output: Urine 1975 Other: # Bowel Movements 0 Active Medications: Current Medications Acetaminophen (Tylenol) 650 mg PO Q4HR PRN PRN Reason: Mild Pain / Temp above 100 Stop: 08/19/17 21:52 Al Hydrox/Mg Hydrox/Simethicone (Maalox) 30 ml PO Q4HR PRN PRN Reason: GI DISTRESS Stop: 08/19/17 21:52 Albuterol/Ipratropium (Duoneb Neb) 3 ml HHN [id number] [facility] Stop: 08/20/17 18:59 Last Admin: 06/26/17 07:28 Dose: 3 ml [place] Oil/[place]ones[place] Balsam/Trypsin (Venelex) 1 appl TP DAILY [facility] Stop: 08/22/17 16:14 Last Admin: 06/25/17 10:42 Dose: 1 appl Dexamethasone Sodium Phosphate (Decadron) 40 mg IVP DAILY [facility] Stop: 08/24/17 12:59 Last Admin: 06/25/17 13:39 Dose: 40 mg Dextrose (D50w) 50 ml IVP PRN PRN PRN Reason: Blood Glucose less than 70 Stop: 08/23/17 16:16 Last Admin: 06/25/17 06:03 Dose: 50 ml Dextrose (Glutose 40%) 18.75 gm PO PRN PRN PRN Reason: Blood Glucose less than 70 Stop: 08/23/17 16:16 Docusate Sodium (Colace) 250 mg PO BID [facility] Stop: 08/20/17 08:59 Last Admin: 06/25/17 20:10 Dose: Not Given Donepezil HCl (Aricept) 5 mg PO HS [facility] Stop: 08/20/17 20:59 Last Admin: 06/25/17 21:41 Dose: Not Given Folic Acid (Folate) 1 mg PO DAILY [facility] Stop: 08/20/17 08:59 Last Admin: 06/25/17 09:43 Dose: Not Given Glucagon (Glucagen) 1 mg IM PRN PRN PRN Reason: Blood Glucose less than 70 Stop: 08/23/17 16:16 Azithromycin 500 mg/ Sodium (Chloride) 250 mls @ 250 mls/hr IV Q24HR [facility] Stop: 08/19/17 19:44 Last Admin: 06/25/17 20:05 Dose: 250 mls/hr Metronidazole (Flagyl) 500 mg in 100 mls @ 100 mls/hr IV Q8HR [facility] Stop: 08/21/17 12:59 Last Admin: 06/26/17 04:54 Dose: 100 mls/hr Vancomycin HCl 1.5 gm/ Sodium (Chloride) 500 mls @ 250 mls/hr IV Q24H [facility] Stop: 08/22/17 09:59 Last Infusion: 06/25/17 12:45 Dose: Infused Norepinephrine Bitartrate 8 mg (/ Sodium Chloride) 258 mls @ 0 mls/hr IV TITR PRN; Protocol; 0 MCG/MIN PRN Reason: BP MAINTENANCE (PER PROTOCOL) Stop: 08/20/17 09:59 Last Titration: 06/25/17 16:00 Dose: 3.87 mcg/min, 7.5 mls/hr Furosemide 100 mg/ Sodium (Chloride) 100 mls @ 5 mls/hr IV TITR [facility] Stop: 08/23/17 16:29 Last Admin: 06/26/17 07:10 Dose: 5 mls/hr Albumin Human (Albutein 25%) 12.5 gm in 50 mls @ 50 mls/hr IV Q8H [facility] Stop: 06/27/17 08:01 Last Admin: 06/26/17 08:19 Dose: 50 mls/hr Dextrose/Sodium Chloride (D5-0.9%Ns) 1,000 mls @ 10 mls/hr IV .Q24H [facility] Stop: 08/24/17 14:59 Last Admin: 06/25/17 15:39 Dose: 10 mls/hr Multivitamins/Minerals 10 ml/Dextrose/ Amino Acids/Electrolytes/ Fat Emulsion Intravenous 960 mls @ 40 mls/hr IV .Q24H [facility] Stop: 08/24/17 14:59 Last Admin: 06/25/17 15:39 Dose: 40 mls/hr Potassium Chloride (Potassium Chloride) 20 meq in 100 mls @ 50 mls/hr IV Q2H [facility] Stop: 06/26/17 14:29 Insulin Aspart (Novolog Insulin Sliding Scale) 0 units SUBQ Q6HR [facility] PRN Reason: Protocol Stop: 08/23/17 17:59 Last Admin: 06/26/17 06:02 Dose: Not Given Lactobacillus Rhamnosus (Culturelle 15b) 1 each PO DAILY [facility] Stop: 08/20/17 08:59 Last Admin: 06/25/17 09:43 Dose: Not Given Lactulose (Cephulac) 30 gm PO Q4HR [facility] Stop: 08/23/17 15:59 Last Admin: 06/26/17 08:15 Dose: Not Given Latanoprost (Xalatan 0.005% Oph Soln) 1 drop EACH EYE HS [facility] Stop: 08/19/17 20:59 Last Admin: 06/25/17 21:42 Dose: 1 drop Lorazepam (Ativan) 1 mg PO Q4HR PRN PRN Reason: Agitation Stop: 08/19/17 20:16 Lorazepam (Ativan) 1 mg IVP Q4HR PRN; Protocol PRN Reason: Agitation Stop: 08/22/17 08:56 Last Admin: 06/23/17 22:13 Dose: 1 mg Memantine (Namenda) 5 mg PO BID [facility] Stop: 08/20/17 08:59 Last Admin: 06/25/17 20:10 Dose: Not Given Miscellaneous (Vancomycin Iv Per Pharmacy) 1 ea MC PRN PRN PRN Reason: PROTOCOL Stop: 08/21/17 14:04 Miscellaneous (Tpn Per Pharmacy) 1 ea MC PRN PRN PRN Reason: PROTOCOL Stop: 08/23/17 15:17 Morphine Sulfate (Morphine) 1 mg IVP Q4HR PRN PRN Reason: Pain (Severe) Stop: 08/22/17 08:57 Last Admin: 06/26/17 04:53 Dose: 1 mg Multivitamins/Vitamin C (Theragran) 1 tab PO DAILY [facility] Stop: 05/03/18 08:59 Last Admin: 06/25/17 09:43 Dose: Not Given Pantoprazole Sodium (Protonix) 40 mg IVP DAILY [facility] Stop: 08/21/17 20:59 Last Admin: 06/26/17 08:21 Dose: 40 mg Polyethylene Glycol (Miralax) 17 gm PO DAILY [facility] Stop: 08/20/17 08:59 Last Admin: 06/25/17 09:44 Dose: Not Given Rifaximin (Xifaxan) 600 mg PO BID [facility] Stop: 08/23/17 16:59 Last Admin: 06/25/17 20:11 Dose: Not Given Sodium Phosphate (Fleet Enema) 135 ml RC PRN PRN PRN Reason: Constipation Stop: 08/19/17 20:23 Last Admin: 06/23/17 22:48 Dose: 135 ml Tamsulosin HCl (Flomax) 0.4 mg PO HS [facility] Stop: 08/19/17 20:59 Last Admin: 06/25/17 21:10 Dose: Not Given Thiamine HCl (Vitamin B1) 100 mg PO DAILY [facility] Stop: 08/20/17 08:59 Last Admin: 06/25/17 09:44 Dose: Not Given Zolpidem Tartrate (Ambien) 5 mg PO HS PRN PRN Reason: Insomnia Stop: 08/19/17 20:19 General: Moderate distress HEENT: Atraumatic, Mucous membr. moist/pink Neck: Supple, +2 carotid pulse wo bruit Cardiovascular: Regular rate, Normal S1, Normal S2 Lungs: Other (coarse rhonchi, congestion) Abdomen: Soft Extremities: Edema, Other (bipedal edema, Upper ext edema) Neurological: Sensation intact Skin: no Rash Psych/Mental Status: Mood NL - Procedures Procedures: Procedures Procedure Code Date ASSISTANCE WITH RESPIRATORY VENTILATION, 24-96 HRS, CPAP [id number] 06/20/17 POS AIRWAY PRESSURE CPAP 98210 06/20/17 Assessment/Plan - Assessment Assessment: 82 YO MALE WITH ANOREXIA AND DYSPHAGIA UNABLE TO PLACE NGT DUE TO ANATOMY PEG CONSIDERED BUT PT IS NOT A GOOD CANDIDATE WITH CIRRHOSIS, ASCITES, COAGULOPATHY FURTHERMORE FAMILY DOES NOT WANT PEG 1.CONT SUPP CARE 2.CONT TPN 3.CONSIDER HOSPICE 4.WILL SIGN OFF, CALL IF QUESTIONS
[2017-06-26] MEDS: KCL 20mEq/100mL Premix 20 MEQ/100 ML PIGGYBACK IV SCH ×2 (10:34→14:28)
[2017-06-26] MEDS: Venelex 60gm Tube TP SCH (14:30)
--- NOTE | 2017-06-26 15:19 | Consultation ---
DATE OF CONSULTATION: 06/23/2017 ATTENDING PHYSICIAN: Dr. Holden REASON FOR CONSULTATION: Decubitus ulcers. Thank you for referring this patient to me. HISTORY OF PRESENT ILLNESS: This is an 82-year-old male transferred from [facility] because of hypotension. PAST MEDICAL HISTORY: Includes psychosis, Alzheimer's dementia, cirrhosis of the liver, diverticulosis. The patient is non-communicative. LABORATORY STUDIES: Show WBC elevated to 18,700, hemoglobin 12.7, platelet count is low at 79,000 without anticoagulation. The medications do not include medications that would alter the platelet count. A consult by Dr. Holden was made to try and explain the thrombocytopenia. PHYSICAL EXAMINATION: Shows multiple areas of abrasions throughout both upper and lower extremities which is extensive, but not very deep. The sacral decubitus ulcers are utmost stage 2-3. RECOMMENDATIONS: The patient needs debridement, but because of the thrombocytopenia would not recommend this until corrected. It appears that the patient may be DNR status anyhow. JOB# [id number]
--- NOTE | 2017-06-26 15:32 | General Progress Note ---
Subjective - Review of Systems Service Date: 06/26/17 Objective - Results Result Diagrams: 06/26/17 09:00 06/26/17 09:00 Recent Labs: Laboratory Last Values WBC 9.0 Th/cmm (4.8-10.8) 06/26/17 09:00 RBC 2.77 Mil/cmm (3.80-5.80) L 06/26/17 09:00 Hgb 9.9 gm/dL (12-16) L 06/26/17 09:00 Hct 29.0 % (41.0-60) L 06/26/17 09:00 MCV 104.7 fl (80-99) H 06/26/17 09:00 MCH 35.6 pg (27.0-31.0) H 06/26/17 09:00 MCHC Differential 34.0 pg (28.0-36.0) 06/26/17 09:00 RDW 16.0 % (11.5-20.0) 06/26/17 09:00 Plt Count 25 Th/cmm (150-400) L* 06/26/17 09:00 MPV 7.3 fl 06/26/17 09:00 Neutrophils % 94.0 % (40.0-80.0) H 06/26/17 09:00 Band Neutrophils % 2 % (0-10) 06/25/17 04:30 Lymphocytes % 4.0 % (20.0-50.0) L 06/26/17 09:00 Monocytes % 1.9 % (2.0-10.0) L 06/26/17 09:00 Eosinophils % 0.1 % (0.0-5.0) 06/26/17 09:00 Basophils % 0.0 % (0.0-2.0) 06/26/17 09:00 Neutrophils (Manual) 83 % (40-80) H 06/25/17 04:30 Lymphocytes 4 % (20-50) L 06/25/17 04:30 Monocytes 9 % (2-10) 06/25/17 04:30 Eosinophils 2 % (0-5) 06/25/17 04:30 Platelet Estimate DECREASED PLATELETS (NORMAL) 06/25/17 04:30 PT 20.6 SECONDS (9.5-11.5) H 06/25/17 12:44 INR 1.91 (0.5-1.4) H 06/25/17 12:44 PTT (Actin FS) 86.0 SECONDS (26.0-38.0) H* 06/26/17 09:00 Fibrinogen 236.0 mg/dL (200.0-400.0) 06/26/17 09:00 Specimen Source Arterial 06/24/17 16:40 Sample Site Right Radial 06/24/17 16:40 pH 7.38 (7.35-7.45) 06/24/17 16:40 pCO2 36.0 mmHg (35.0-45.0) 06/24/17 16:40 pO2 73.0 mmHg (80.0-100.0) L 06/24/17 16:40 HCO3 22.3 mEq/L (20.0-26.0) 06/24/17 16:40 Base Excess -3.3 mEq/L (-3.0-3.0) L 06/24/17 16:40 O2 Saturation 94.0 % (92.0-100.0) 06/24/17 16:40 [place] Test PASS 06/24/17 16:40 Vent Rate 12 06/24/17 16:40 Inspired O2 60 06/24/17 16:40 Tidal Volume NA 06/23/17 10:42 PEEP 8 06/23/17 10:42 Pressure (ins/psv/peep) 7 06/24/17 16:40 Critical Value PW 06/24/17 16:40 Sodium 149 mEq/L (136-145) H 06/26/17 09:00 Potassium 2.8 mEq/L (3.5-5.1) L* D 06/26/17 09:00 Chloride 119 mEq/L (98-107) H 06/26/17 09:00 Carbon Dioxide 22.8 mEq/L (21.0-31.0) 06/26/17 09:00 Anion Gap 10.0 (7.0-16.0) 06/26/17 09:00 BUN 63 mg/dL (7-25) H 06/26/17 09:00 Creatinine 2.1 mg/dL (0.7-1.3) H 06/26/17 09:00 Est GFR ( Amer) TNP 06/26/17 09:00 Est GFR (Non-Af Amer) TNP 06/26/17 09:00 BUN/Creatinine Ratio 30.0 06/26/17 09:00 Glucose 159 mg/dL (70-105) H 06/26/17 09:00 POC Glucose 129 MG/DL (70 - 105) H 06/26/17 12:06 Whole Bld Lactic Acid 2.69 mmol/L (0.60-1.99) H* 06/26/17 11:00 Calcium 8.9 mg/dL (8.6-10.3) 06/26/17 09:00 Phosphorus 4.1 mg/dL (2.5-5.0) 06/26/17 09:00 Magnesium 2.4 mg/dL (1.9-2.7) 06/26/17 09:00 Total Bilirubin 2.4 mg/dL (0.3-1.0) H 06/26/17 09:00 AST 64 U/L (13-39) H 06/26/17 09:00 ALT 32 U/L (7-52) 06/26/17 09:00 Alkaline Phosphatase 112 U/L (34-104) H 06/26/17 09:00 Ammonia 89 umol/L (16-53) H 06/25/17 04:30 Troponin I 0.02 ng/mL (0.01-0.05) 06/21/17 12:00 B-Natriuretic Peptide 195.0 pg/mL (5.0-100.0) H 06/26/17 09:00 Total Protein 5.2 gm/dL (6.0-8.3) L 06/26/17 09:00 Albumin 2.6 gm/dL (4.2-5.5) L 06/26/17 09:00 Globulin 2.6 gm/dL 06/26/17 09:00 Albumin/Globulin Ratio 1.0 (1.0-1.8) 06/26/17 09:00 Prealbumin 3 mg/dL (9-32) L 06/24/17 06:00 Triglycerides 23 mg/dL (<150) 06/24/17 09:20 Cholesterol 55 mg/dL (<200) 06/24/17 09:20 Urine Source [place] 06/21/17 18:04 Urine Color ALEKSANDAR 06/21/17 18:04 Urine Clarity CLEAR (CLEAR) 06/21/17 18:04 Urine pH 5.0 (4.6 - 8.0) 06/21/17 18:04 Ur Specific [place] >= 1.030 (1.005-1.030) 06/21/17 18:04 Urine Protein TRACE mg/dL (NEGATIVE) 06/21/17 18:04 Urine Glucose (UA) NEGATIVE mg/dL (NEGATIVE) 06/21/17 18:04 Urine Ketones NEGATIVE mg/dL (NEGATIVE) 06/21/17 18:04 Urine Blood NEGATIVE (NEGATIVE) 06/21/17 18:04 Urine Nitrate NEGATIVE (NEGATIVE) 06/21/17 18:04 Urine Bilirubin NEGATIVE (NEGATIVE) 06/21/17 18:04 Urine Urobilinogen 1.0 E.U./dL (0.2 - 1.0) 06/21/17 18:04 Ur Leukocyte Esterase NEGATIVE (NEGATIVE) 06/21/17 18:04 Urine RBC 0-2 /hpf (0-5) H 06/21/17 18:04 Urine WBC 2-5 /hpf (0-5) 06/21/17 18:04 Ur Epithelial Cells OCCASIONAL /lpf (FEW) 06/21/17 18:04 Urine Bacteria FEW /hpf (NONE SEEN) 06/21/17 18:04 Vancomycin Trough 30.0 ug/mL (10-20) H 06/26/17 09:00 Ur L.pneumophila Ag Negative (Negative) 06/22/17 10:45 Blood Type O NEGATIVE 06/25/17 09:48 Antibody Screen NEGATIVE 06/25/17 09:48 - Physical Exam Vitals and I&O: Vital Signs Temp 97 F 06/26/17 11:00 Pulse 97 06/26/17 13:00 Resp 95 06/26/17 13:00 BP 109/61 06/26/17 13:00 Pulse Ox 96 06/26/17 12:00 Intake & Output 06/25/17 06/26/17 06/26/17 18:59 06:59 18:59 Intake Total 1071.230 920 350 Output Total 1975 Balance 1071.230 -1055 350 Weight (lbs) 116.12 kg Intake: Intake, IV Amount 1071.230 250 350 Albumin 25% 12.5gm/50mL 100 50 50 12.5 gm In 50 ml @ 50 mls /hr IV Q8H [facility] Rx#: [id number] Furosemide 100 mg In 86.333 100 Sodium Chloride 0.9% 90 ml @ 5 mls/hr IV TITR [facility] Rx#:[id number] KCL 20mEq/100mL Premix 20 100 meq In 100 ml @ 50 mls/ hr IV Q2H [facility] Rx#: [id number] Norepinephrine 8 mg In 284.897 Sodium Chloride 0.9% 250 ml @ 0 MCG/MIN IV TITR PRN Rx#:[id number] Vancomycin HCl 1.5 gm In 500 Sodium Chloride 0.9% 500 ml @ 250 mls/hr IV Q24H [facility] Rx#:[id number] metroNIDAZOLE 500mg/NS 100 200 100 100mL 500 mg In 100 ml @ 100 mls/hr IV Q8HR [facility] Rx #:[id number] Oral 0 TPN/PPN 140 Blood Product 480 Albumin 50 Output: Urine 1975 Other: # Bowel Movements 0 Active Medications: Current Medications Acetaminophen (Tylenol) 650 mg PO Q4HR PRN PRN Reason: Mild Pain / Temp above 100 Stop: 08/19/17 21:52 Al Hydrox/Mg Hydrox/Simethicone (Maalox) 30 ml PO Q4HR PRN PRN Reason: GI DISTRESS Stop: 08/19/17 21:52 Albuterol/Ipratropium (Duoneb Neb) 3 ml HHN [id number] [facility] Stop: 08/20/17 18:59 Last Admin: 06/26/17 07:28 Dose: 3 ml Ray Oil/[place] Balsam/Trypsin (Venelex) 1 appl TP DAILY [facility] Stop: 08/22/17 16:14 Last Admin: 06/26/17 14:30 Dose: 1 appl Dextrose (D50w) 50 ml IVP PRN PRN PRN Reason: Blood Glucose less than 70 Stop: 08/23/17 16:16 Last Admin: 06/25/17 06:03 Dose: 50 ml Dextrose (Glutose 40%) 18.75 gm PO PRN PRN PRN Reason: Blood Glucose less than 70 Stop: 08/23/17 16:16 Docusate Sodium (Colace) 250 mg PO BID [facility] Stop: 08/20/17 08:59 Last Admin: 06/26/17 09:00 Dose: Not Given Donepezil HCl (Aricept) 5 mg PO HS [facility] Stop: 08/20/17 20:59 Last Admin: 06/25/17 21:41 Dose: Not Given Folic Acid (Folate) 1 mg PO DAILY [facility] Stop: 08/20/17 08:59 Last Admin: 06/26/17 09:00 Dose: Not Given Glucagon (Glucagen) 1 mg IM PRN PRN PRN Reason: Blood Glucose less than 70 Stop: 08/23/17 16:16 Azithromycin 500 mg/ Sodium (Chloride) 250 mls @ 250 mls/hr IV Q24HR [facility] Stop: 08/19/17 19:44 Last Admin: 06/25/17 20:05 Dose: 250 mls/hr Metronidazole (Flagyl) 500 mg in 100 mls @ 100 mls/hr IV Q8HR [facility] Stop: 08/21/17 12:59 Last Infusion: 06/26/17 14:15 Dose: Infused Norepinephrine Bitartrate 8 mg (/ Sodium Chloride) 258 mls @ 0 mls/hr IV TITR PRN; Protocol; 0 MCG/MIN PRN Reason: BP MAINTENANCE (PER PROTOCOL) Stop: 08/20/17 09:59 Last Titration: 06/25/17 16:00 Dose: 3.87 mcg/min, 7.5 mls/hr Furosemide 100 mg/ Sodium (Chloride) 100 mls @ 5 mls/hr IV TITR [facility] Stop: 08/23/17 16:29 Last Admin: 06/26/17 07:10 Dose: 5 mls/hr Albumin Human (Albutein 25%) 12.5 gm in 50 mls @ 50 mls/hr IV Q8H [facility] Stop: 06/27/17 08:01 Last Infusion: 06/26/17 09:20 Dose: Infused Dextrose/Sodium Chloride (D5-0.9%Ns) 1,000 mls @ 10 mls/hr IV .Q24H [facility] Stop: 08/24/17 14:59 Last Admin: 06/25/17 15:39 Dose: 10 mls/hr Multivitamins/Minerals 10 ml/Dextrose/ Amino Acids/Electrolytes/ Fat Emulsion Intravenous 960 mls @ 40 mls/hr IV .Q24H [facility] Stop: 08/24/17 14:59 Last Admin: 06/25/17 15:39 Dose: 40 mls/hr Dexamethasone Sodium Phosphate (40 mg/ Sodium Chloride) 54 mls @ 50 mls/hr IV DAILY [facility] Stop: 08/26/17 08:59 Insulin Aspart (Novolog Insulin Sliding Scale) 0 units SUBQ Q6HR [facility] PRN Reason: Protocol Stop: 08/23/17 17:59 Last Admin: 06/26/17 14:29 Dose: Not Given Lactobacillus Rhamnosus (Culturelle 15b) 1 each PO DAILY [facility] Stop: 08/20/17 08:59 Last Admin: 06/26/17 09:00 Dose: Not Given Lactulose (Cephulac) 30 gm PO Q4HR [facility] Stop: 08/23/17 15:59 Last Admin: 06/26/17 13:44 Dose: Not Given Latanoprost (Xalatan 0.005% [facility] Sol) 1 drop EACH EYE HS [facility] Stop: 08/19/17 20:59 Last Admin: 06/25/17 21:42 Dose: 1 drop Lorazepam (Ativan) 1 mg PO Q4HR PRN PRN Reason: Agitation Stop: 08/19/17 20:16 Lorazepam (Ativan) 1 mg IVP Q4HR PRN; Protocol PRN Reason: Agitation Stop: 08/22/17 08:56 Last Admin: 06/23/17 22:13 Dose: 1 mg Memantine (Namenda) 5 mg PO BID [facility] Stop: 08/20/17 08:59 Last Admin: 06/26/17 09:00 Dose: Not Given Miscellaneous (Vancomycin Iv Per Pharmacy) 1 ea PRN PRN PRN Reason: PROTOCOL Stop: 08/21/17 14:04 Miscellaneous (Tpn Per Pharmacy) 1 [facility] PRN PRN PRN Reason: PROTOCOL Stop: 08/23/17 15:17 Morphine Sulfate (Morphine) 1 mg IVP Q4HR PRN PRN Reason: Pain (Severe) Stop: 08/22/17 08:57 Last Admin: 06/26/17 04:53 Dose: 1 mg Pantoprazole Sodium (Protonix) 40 mg IVP DAILY [facility] Stop: 08/21/17 20:59 Last Admin: 06/26/17 08:21 Dose: 40 mg Polyethylene Glycol (Miralax) 17 gm PO DAILY [facility] Stop: 08/20/17 08:59 Last Admin: 06/26/17 09:00 Dose: Not Given Rifaximin (Xifaxan) 600 mg PO BID [facility] Stop: 08/23/17 16:59 Last Admin: 06/26/17 09:00 Dose: Not Given Sodium Phosphate (Fleet Enema) 135 ml RC PRN PRN PRN Reason: Constipation Stop: 08/19/17 20:23 Last Admin: 06/23/17 22:48 Dose: 135 ml Tamsulosin HCl (Flomax) 0.4 mg PO HS [facility] Stop: 08/19/17 20:59 Last Admin: 06/25/17 21:10 Dose: Not Given Thiamine HCl (Vitamin B1) 100 mg PO DAILY [facility] Stop: 08/20/17 08:59 Last Admin: 06/26/17 09:00 Dose: Not Given Zolpidem Tartrate (Ambien) 5 mg PO HS PRN PRN Reason: Insomnia Stop: 08/19/17 20:19 General: Moderate distress HEENT: Atraumatic, Mucous membr. moist/pink Neck: Supple, +2 carotid pulse wo bruit Cardiovascular: Regular rate, Normal S1, Normal S2 Lungs: Other (coarse rhonchi, congestion) Abdomen: Soft Extremities: Edema, Other (bipedal edema, Upper ext edema) Neurological: Sensation intact Skin: no Rash Psych/Mental Status: Mood NL - Procedures Procedures: Procedures Procedure Code Date ASSISTANCE WITH RESPIRATORY VENTILATION, 24-96 HRS, CPAP [id number] 06/20/17 POS AIRWAY PRESSURE CPAP 31525 06/20/17 Assessment/Plan - Assessment Assessment: * septic shock * DIC * respiratory failure * ITP Vitamin k follow cbc Nutritional Asmnt/Malnutr-PDOC - Dietary Evaluation Malnutrition Findings (Please click <Entered> for more info): Nutritional Asmnt/Malnutrition Start: 06/22/17 16: 04 Text: Status: Complete Freq: Document 06/22/17 16:04 HEN (Rec: 06/22/17 16:23 [facility] [id number]) Nutritional Asmnt/Malnutrition Patient General Information Nutritional Screening High Risk Diagnosis hypovolemic shock, R/O sepsis Pertinent Medical Hx/Surgical Hx psychosis, alzheimer dementia, ascites, liver cirrhosis, ileus diverticulosis Subjective Information Consult received for wound. Pt seen resting in bed at time of visit. Spoke with RN, pt now was on NPO, waiting for swallow eval. Pt received swallow eval in the afternoon, failed. ST recommended NPO. Current Diet Order/ Nutrition Support NPO Pertinent Medications D5-0.9%nx, colace, folate, culturelle, theragran, piperacillin, miralax, kcl, vit B1, vancomycin Pertinent Labs 06/22 Na 144, K 3.5, Cl 116, BUN 44, Cr 1.1, Glucose 157 Nutritional Hx/Data Height 1.78 m Height (Calculated Centimeters) 177.8 Current Weight (lbs) 75.296 kg Weight (Calculated Kilograms) 75.3 Weight (Calculated Grams) 23533.3 [place] Body Weight 150 Body Mass Index (BMI) 23.8 Weight Status Approriate GI Symptoms GI Symptoms None Last BM 3/4 Difficult in: None Usual diet at home pt was on [facility] soft chopped diet at [facility] Skin Integrity/Comment: Douglas Gabriel no wound care note at this time Current %PO Negligible < 25% Estimated Nutritional Goals BEE in Kcals: Using Current wt Calories/Kcals/Kg 25-30 Kcals Calculated 2040-7929 Protein: Using Current wt Protein g/k-1.2 Protein Calculated 68-82 Fluid: ml 1700-2040ml (1ml/kcal) Nutritional Problem 1. Problem Problem inadequate energy intake Etiology pt on NPO Signs/Symptoms: PO intake <25% Intervention/Recommendation Comments 1. Monitor NPO status. 2. If TF needed, recommend start Fibersource HN at 20ml/ hr continuous, increase 10ml/ hr q6hr to goal rate of 60ml/ hr as tolerated. This will provide 1728kcal, 78g protein, 1166ml free water, meeting 100% of nutritional needs. 3. Monitor wt, labs and skin integrity 4. F/U as high risk in 2-3 days, 06/24-06/25 Expected Outcomes/Goals Expected Outcomes/Goals 1. Pt to meet at least 75% of nutritional needs via nutrition support 2. Wt stability, skin to remain intact, labs to approach WNL.
--- NOTE | 2017-06-26 17:04 | General Progress Note ---
Subjective - Review of Systems Service Date: 06/26/17 Subjective: obtunded, on BIPAP Objective - Results Result Diagrams: 06/26/17 09:00 06/26/17 09:00 Recent Labs: Laboratory Last Values WBC 9.0 Th/cmm (4.8-10.8) 06/26/17 09:00 RBC 2.77 Mil/cmm (3.80-5.80) L 06/26/17 09:00 Hgb 9.9 gm/dL (12-16) L 06/26/17 09:00 Hct 29.0 % (41.0-60) L 06/26/17 09:00 MCV 104.7 fl (80-99) H 06/26/17 09:00 MCH 35.6 pg (27.0-31.0) H 06/26/17 09:00 MCHC Differential 34.0 pg (28.0-36.0) 06/26/17 09:00 RDW 16.0 % (11.5-20.0) 06/26/17 09:00 Plt Count 25 Th/cmm (150-400) L* 06/26/17 09:00 MPV 7.3 fl 06/26/17 09:00 Neutrophils % 94.0 % (40.0-80.0) H 06/26/17 09:00 Band Neutrophils % 2 % (0-10) 06/25/17 04:30 Lymphocytes % 4.0 % (20.0-50.0) L 06/26/17 09:00 Monocytes % 1.9 % (2.0-10.0) L 06/26/17 09:00 Eosinophils % 0.1 % (0.0-5.0) 06/26/17 09:00 Basophils % 0.0 % (0.0-2.0) 06/26/17 09:00 Neutrophils (Manual) 83 % (40-80) H 06/25/17 04:30 Lymphocytes 4 % (20-50) L 06/25/17 04:30 Monocytes 9 % (2-10) 06/25/17 04:30 Eosinophils 2 % (0-5) 06/25/17 04:30 Platelet Estimate DECREASED PLATELETS (NORMAL) 06/25/17 04:30 PT 20.6 SECONDS (9.5-11.5) H 06/25/17 12:44 INR 1.91 (0.5-1.4) H 06/25/17 12:44 PTT (Actin FS) 86.0 SECONDS (26.0-38.0) H* 06/26/17 09:00 Fibrinogen 236.0 mg/dL (200.0-400.0) 06/26/17 09:00 Specimen Source Arterial 06/24/17 16:40 Sample Site Right Radial 06/24/17 16:40 pH 7.38 (7.35-7.45) 06/24/17 16:40 pCO2 36.0 mmHg (35.0-45.0) 06/24/17 16:40 pO2 73.0 mmHg (80.0-100.0) L 06/24/17 16:40 HCO3 22.3 mEq/L (20.0-26.0) 06/24/17 16:40 Base Excess -3.3 mEq/L (-3.0-3.0) L 06/24/17 16:40 O2 Saturation 94.0 % (92.0-100.0) 06/24/17 16:40 Hayden Test PASS 06/24/17 16:40 Vent Rate 12 06/24/17 16:40 Inspired O2 60 06/24/17 16:40 Tidal Volume NA 06/23/17 10:42 PEEP 8 06/23/17 10:42 Pressure (ins/psv/peep) 7 06/24/17 16:40 Critical Value PW 06/24/17 16:40 Sodium 149 mEq/L (136-145) H 06/26/17 09:00 Potassium 2.8 mEq/L (3.5-5.1) L* D 06/26/17 09:00 Chloride 119 mEq/L (98-107) H 06/26/17 09:00 Carbon Dioxide 22.8 mEq/L (21.0-31.0) 06/26/17 09:00 Anion Gap 10.0 (7.0-16.0) 06/26/17 09:00 BUN 63 mg/dL (7-25) H 06/26/17 09:00 Creatinine 2.1 mg/dL (0.7-1.3) H 06/26/17 09:00 Est GFR ( Amer) TNP 06/26/17 09:00 Est GFR (Non-Af Amer) TNP 06/26/17 09:00 BUN/Creatinine Ratio 30.0 06/26/17 09:00 Glucose 159 mg/dL (70-105) H 06/26/17 09:00 POC Glucose 129 MG/DL (70 - 105) H 06/26/17 12:06 Whole Bld Lactic Acid 2.69 mmol/L (0.60-1.99) H* 06/26/17 11:00 Calcium 8.9 mg/dL (8.6-10.3) 06/26/17 09:00 Phosphorus 4.1 mg/dL (2.5-5.0) 06/26/17 09:00 Magnesium 2.4 mg/dL (1.9-2.7) 06/26/17 09:00 Total Bilirubin 2.4 mg/dL (0.3-1.0) H 06/26/17 09:00 AST 64 U/L (13-39) H 06/26/17 09:00 ALT 32 U/L (7-52) 06/26/17 09:00 Alkaline Phosphatase 112 U/L (34-104) H 06/26/17 09:00 Ammonia 89 umol/L (16-53) H 06/25/17 04:30 Troponin I 0.02 ng/mL (0.01-0.05) 06/21/17 12:00 B-Natriuretic Peptide 195.0 pg/mL (5.0-100.0) H 06/26/17 09:00 Total Protein 5.2 gm/dL (6.0-8.3) L 06/26/17 09:00 Albumin 2.6 gm/dL (4.2-5.5) L 06/26/17 09:00 Globulin 2.6 gm/dL 06/26/17 09:00 Albumin/Globulin Ratio 1.0 (1.0-1.8) 06/26/17 09:00 Prealbumin 3 mg/dL (9-32) L 06/24/17 06:00 Triglycerides 23 mg/dL (<150) 06/24/17 09:20 Cholesterol 55 mg/dL (<200) 06/24/17 09:20 Urine Source [place] 06/21/17 18:04 Urine Color ALEKSANDAR 06/21/17 18:04 Urine Clarity CLEAR (CLEAR) 06/21/17 18:04 Urine pH 5.0 (4.6 - 8.0) 06/21/17 18:04 Ur Specific [place] >= 1.030 (1.005-1.030) 06/21/17 18:04 Urine Protein TRACE mg/dL (NEGATIVE) 06/21/17 18:04 Urine Glucose (UA) NEGATIVE mg/dL (NEGATIVE) 06/21/17 18:04 Urine Ketones NEGATIVE mg/dL (NEGATIVE) 06/21/17 18:04 Urine Blood NEGATIVE (NEGATIVE) 06/21/17 18:04 Urine Nitrate NEGATIVE (NEGATIVE) 06/21/17 18:04 Urine Bilirubin NEGATIVE (NEGATIVE) 06/21/17 18:04 Urine Urobilinogen 1.0 E.U./dL (0.2 - 1.0) 06/21/17 18:04 Ur Leukocyte Esterase NEGATIVE (NEGATIVE) 06/21/17 18:04 Urine RBC 0-2 /hpf (0-5) H 06/21/17 18:04 Urine WBC 2-5 /hpf (0-5) 06/21/17 18:04 Ur Epithelial Cells OCCASIONAL /lpf (FEW) 06/21/17 18:04 Urine Bacteria FEW /hpf (NONE SEEN) 06/21/17 18:04 Vancomycin Trough 30.0 ug/mL (10-20) H 06/26/17 09:00 Ur L.pneumophila Ag Negative (Negative) 06/22/17 10:45 Blood Type O NEGATIVE 06/25/17 09:48 Antibody Screen NEGATIVE 06/25/17 09:48 - Physical Exam Vitals and I&O: Vital Signs Temp 97 F 06/26/17 11:00 Pulse 96 06/26/17 15:55 Resp 12 06/26/17 15:55 BP 109/61 06/26/17 13:00 Pulse Ox 97 06/26/17 15:55 Intake & Output 06/25/17 06/26/17 06/26/17 18:59 06:59 18:59 Intake Total 1071.230 920 350 Output Total 1975 Balance 1071.230 -1055 350 Weight (lbs) 116.12 kg Intake: Intake, IV Amount 1071.230 250 350 Albumin 25% 12.5gm/50mL 100 50 50 12.5 gm In 50 ml @ 50 mls /hr IV Q8H [facility] Rx#: [id number] Furosemide 100 mg In 86.333 100 Sodium Chloride 0.9% 90 ml @ 5 mls/hr IV TITR [facility] Rx#:[id number] KCL 20mEq/100mL Premix 20 100 meq In 100 ml @ 50 mls/ hr IV Q2H [facility] Rx#: [id number] Norepinephrine 8 mg In 284.897 Sodium Chloride 0.9% 250 ml @ 0 MCG/MIN IV TITR PRN Rx#:[id number] Vancomycin HCl 1.5 gm In 500 Sodium Chloride 0.9% 500 ml @ 250 mls/hr IV Q24H [facility] Rx#:[id number] metroNIDAZOLE 500mg/NS 100 200 100 100mL 500 mg In 100 ml @ 100 mls/hr IV Q8HR [facility] Rx #:[id number] Oral 0 TPN/PPN 140 Blood Product 480 Albumin 50 Output: Urine 1975 Other: # Bowel Movements 0 Active Medications: Current Medications Acetaminophen (Tylenol) 650 mg PO Q4HR PRN PRN Reason: Mild Pain / Temp above 100 Stop: 08/19/17 21:52 Al Hydrox/Mg Hydrox/Simethicone (Maalox) 30 ml PO Q4HR PRN PRN Reason: GI DISTRESS Stop: 08/19/17 21:52 Albuterol/Ipratropium (Duoneb Neb) 3 ml HHN [id number] [facility] Stop: 08/20/17 18:59 Last Admin: 06/26/17 15:55 Dose: 3 ml [place] Oil/Swedish Balsam/Trypsin (Venelex) 1 appl TP DAILY [facility] Stop: 08/22/17 16:14 Last Admin: 06/26/17 14:30 Dose: 1 appl Dextrose (D50w) 50 ml IVP PRN PRN PRN Reason: Blood Glucose less than 70 Stop: 08/23/17 16:16 Last Admin: 06/25/17 06:03 Dose: 50 ml Dextrose (Glutose 40%) 18.75 gm PO PRN PRN PRN Reason: Blood Glucose less than 70 Stop: 08/23/17 16:16 Docusate Sodium (Colace) 250 mg PO BID [facility] Stop: 08/20/17 08:59 Last Admin: 06/26/17 09:00 Dose: Not Given Donepezil HCl (Aricept) 5 mg PO HS [facility] Stop: 08/20/17 20:59 Last Admin: 06/25/17 21:41 Dose: Not Given Folic Acid (Folate) 1 mg PO DAILY [facility] Stop: 08/20/17 08:59 Last Admin: 06/26/17 09:00 Dose: Not Given Glucagon (Glucagen) 1 mg IM PRN PRN PRN Reason: Blood Glucose less than 70 Stop: 08/23/17 16:16 Azithromycin 500 mg/ Sodium (Chloride) 250 mls @ 250 mls/hr IV Q24HR [facility] Stop: 08/19/17 19:44 Last Admin: 06/25/17 20:05 Dose: 250 mls/hr Metronidazole (Flagyl) 500 mg in 100 mls @ 100 mls/hr IV Q8HR [facility] Stop: 08/21/17 12:59 Last Infusion: 06/26/17 14:15 Dose: Infused Norepinephrine Bitartrate 8 mg (/ Sodium Chloride) 258 mls @ 0 mls/hr IV TITR PRN; Protocol; 0 MCG/MIN PRN Reason: BP MAINTENANCE (PER PROTOCOL) Stop: 08/20/17 09:59 Last Titration: 06/25/17 16:00 Dose: 3.87 mcg/min, 7.5 mls/hr Furosemide 100 mg/ Sodium (Chloride) 100 mls @ 5 mls/hr IV TITR [facility] Stop: 08/23/17 16:29 Last Admin: 06/26/17 07:10 Dose: 5 mls/hr Albumin Human (Albutein 25%) 12.5 gm in 50 mls @ 50 mls/hr IV Q8H [facility] Stop: 06/27/17 08:01 Last Infusion: 06/26/17 09:20 Dose: Infused Dextrose/Sodium Chloride (D5-0.9%Ns) 1,000 mls @ 10 mls/hr IV .Q24H [facility] Stop: 08/24/17 14:59 Last Admin: 06/25/17 15:39 Dose: 10 mls/hr Multivitamins/Minerals 10 ml/Dextrose/ Amino Acids/Electrolytes/ Fat Emulsion Intravenous 960 mls @ 40 mls/hr IV .Q24H [facility] Stop: 08/24/17 14:59 Last Admin: 06/25/17 15:39 Dose: 40 mls/hr Dexamethasone Sodium Phosphate (40 mg/ Sodium Chloride) 54 mls @ 50 mls/hr IV DAILY [facility] Stop: 08/26/17 08:59 Insulin Aspart (Novolog Insulin Sliding Scale) 0 units SUBQ Q6HR [facility] PRN Reason: Protocol Stop: 08/23/17 17:59 Last Admin: 06/26/17 14:29 Dose: Not Given Lactobacillus Rhamnosus (Culturelle 15b) 1 each PO DAILY [facility] Stop: 08/20/17 08:59 Last Admin: 06/26/17 09:00 Dose: Not Given Lactulose (Cephulac) 30 gm PO Q4HR [facility] Stop: 08/23/17 15:59 Last Admin: 06/26/17 13:44 Dose: Not Given Latanoprost (Xalatan 0.005% [facility]) 1 drop EACH EYE HS [facility] Stop: 08/19/17 20:59 Last Admin: 06/25/17 21:42 Dose: 1 drop Lorazepam (Ativan) 1 mg PO Q4HR PRN PRN Reason: Agitation Stop: 08/19/17 20:16 Lorazepam (Ativan) 1 mg IVP Q4HR PRN; Protocol PRN Reason: Agitation Stop: 08/22/17 08:56 Last Admin: 06/23/17 22:13 Dose: 1 mg Memantine (Namenda) 5 mg PO BID [facility] Stop: 08/20/17 08:59 Last Admin: 06/26/17 09:00 Dose: Not Given Miscellaneous (Vancomycin Iv Per Pharmacy) 1 [facility] PRN PRN PRN Reason: PROTOCOL Stop: 08/21/17 14:04 Miscellaneous (Tpn Per Pharmacy) 1 [facility] PRN PRN PRN Reason: PROTOCOL Stop: 08/23/17 15:17 Morphine Sulfate (Morphine) 1 mg IVP Q4HR PRN PRN Reason: Pain (Severe) Stop: 08/22/17 08:57 Last Admin: 06/26/17 04:53 Dose: 1 mg Pantoprazole Sodium (Protonix) 40 mg IVP DAILY [facility] Stop: 08/21/17 20:59 Last Admin: 06/26/17 08:21 Dose: 40 mg Polyethylene Glycol (Miralax) 17 gm PO DAILY [facility] Stop: 08/20/17 08:59 Last Admin: 06/26/17 09:00 Dose: Not Given Rifaximin (Xifaxan) 600 mg PO BID [facility] Stop: 08/23/17 16:59 Last Admin: 06/26/17 09:00 Dose: Not Given Sodium Phosphate (Fleet Enema) 135 ml RC PRN PRN PRN Reason: Constipation Stop: 08/19/17 20:23 Last Admin: 06/23/17 22:48 Dose: 135 ml Tamsulosin HCl (Flomax) 0.4 mg PO HS [facility] Stop: 08/19/17 20:59 Last Admin: 06/25/17 21:10 Dose: Not Given Thiamine HCl (Vitamin B1) 100 mg PO DAILY [facility] Stop: 08/20/17 08:59 Last Admin: 06/26/17 09:00 Dose: Not Given Zolpidem Tartrate (Ambien) 5 mg PO HS PRN PRN Reason: Insomnia Stop: 08/19/17 20:19 General: Moderate distress HEENT: Atraumatic, Mucous membr. moist/pink Neck: Supple, +2 carotid pulse wo bruit Cardiovascular: Regular rate, Normal S1, Normal S2 Lungs: Other (coarse rhonchi, congestion) Abdomen: Soft Extremities: Edema, Other (bipedal edema, Upper ext edema) Neurological: Sensation intact Skin: no Rash Psych/Mental Status: Mood NL - Procedures Procedures: Procedures Procedure Code Date ASSISTANCE WITH RESPIRATORY VENTILATION, 24-96 HRS, CPAP [id number] 06/20/17 POS AIRWAY PRESSURE CPAP 76751 06/20/17 Assessment/Plan - Assessment Assessment: Shock 2/2 possible HAP Resp failure on BIPAP 2/2 to decomp CHF, Left HAP CHF/ Pul edema Thrombocytopenia 2/2 Cirrhosis, possibly sepsis, DIC, meds (Zosyn/Vanco) Hx Ascites Psychosis Peripheral edema Met Enceph - Plan Plan: Lab - Result Diagrams 06/24/17 06:00 06/24/17 06:00 Current Medications Acetaminophen (Tylenol) 650 mg PO Q4HR PRN PRN Reason: Mild Pain / Temp above 100 Stop: 08/19/17 21:52 Al Hydrox/Mg Hydrox/Simethicone (Maalox) 30 ml PO Q4HR PRN PRN Reason: GI DISTRESS Stop: 08/19/17 21:52 Albuterol/Ipratropium (Duoneb Neb) 3 ml HHN [id number] [facility] Stop: 08/20/17 18:59 Last Admin: 06/24/17 11:56 Dose: 3 ml [place] Oil/Swedish Balsam/Trypsin (Venelex) 1 appl TP DAILY [facility] Stop: 08/22/17 16:14 Last Admin: 06/24/17 09:56 Dose: 1 appl Docusate Sodium (Colace) 250 mg PO BID [facility] Stop: 08/20/17 08:59 Last Admin: 06/24/17 09:59 Dose: Not Given Donepezil HCl (Aricept) 5 mg PO HS [facility] Stop: 08/20/17 20:59 Last Admin: 06/23/17 20:33 Dose: Not Given Folic Acid (Folate) 1 mg PO DAILY [facility] Stop: 08/20/17 08:59 Last Admin: 06/24/17 09:59 Dose: Not Given Furosemide (Lasix) 20 mg IVP DAILY [facility] Stop: 08/22/17 08:59 Last Admin: 06/24/17 09:56 Dose: 20 mg Azithromycin 500 mg/ Sodium (Chloride) 250 mls @ 250 mls/hr IV Q24HR [facility] Stop: 08/19/17 19:44 Last Infusion: 06/23/17 22:21 Dose: Infused Dextrose/Sodium Chloride (D5-0.9%Ns) 1,000 mls @ 70 mls/hr IV .[id number] [facility] Stop: 08/21/17 09:27 Last Admin: 06/23/17 03:00 Dose: 70 mls/hr Metronidazole (Flagyl) 500 mg in 100 mls @ 100 mls/hr IV Q8HR [facility] Stop: 08/21/17 12:59 Last Admin: 06/24/17 13:30 Dose: 100 mls/hr Piperacillin Sod/Tazobactam (Sod 3.375 gm/ Sodium Chloride) 50 mls @ 100 mls/ hr IV Q8HR [facility] Stop: 08/21/17 20:59 Last Infusion: 06/24/17 14:24 Dose: Infused Vancomycin HCl 1.5 gm/ Sodium (Chloride) 500 mls @ 250 mls/hr IV Q24H [facility] Stop: 08/22/17 09:59 Last Infusion: 06/24/17 14:24 Dose: Infused Norepinephrine Bitartrate 8 mg (/ Sodium Chloride) 258 mls @ 0 mls/hr IV TITR PRN; Protocol; 0 MCG/MIN PRN Reason: BP MAINTENANCE (PER PROTOCOL) Stop: 08/20/17 09:59 Last Titration: 06/24/17 14:00 Dose: 10 mcg/min, 19.35 mls/hr Lactobacillus Rhamnosus (Culturelle 15b) 1 each PO DAILY [facility] Stop: 08/20/17 08:59 Last Admin: 06/24/17 10:00 Dose: Not Given Lactulose (Cephulac) 30 gm PO Q4HR [facility] Stop: 08/23/17 15:59 Latanoprost (Xalatan 0.005% [facility]) 1 drop EACH EYE HS [facility] Stop: 08/19/17 20:59 Last Admin: 06/23/17 20:33 Dose: 1 drop Lorazepam (Ativan) 1 mg PO Q4HR PRN PRN Reason: Agitation Stop: 08/19/17 20:16 Lorazepam (Ativan) 1 mg IVP Q4HR PRN; Protocol PRN Reason: Agitation Stop: 08/22/17 08:56 Last Admin: 06/23/17 22:13 Dose: 1 mg Memantine (Namenda) 5 mg PO BID [facility] Stop: 08/20/17 08:59 Last Admin: 06/24/17 10:00 Dose: Not Given Miscellaneous (Vancomycin Iv Per Pharmacy) 1 ea [facility] PRN PRN PRN Reason: PROTOCOL Stop: 08/21/17 14:04 Morphine Sulfate (Morphine) 1 mg IVP Q4HR PRN PRN Reason: Pain (Severe) Stop: 08/22/17 08:57 Last Admin: 06/24/17 06:21 Dose: 1 mg Multivitamins/Vitamin C (Theragran) 1 tab PO DAILY [facility] Stop: 08/20/17 08:59 Last Admin: 06/24/17 10:00 Dose: Not Given Pantoprazole Sodium (Protonix) 40 mg IVP DAILY [facility] Stop: 08/21/17 20:59 Last Admin: 06/24/17 09:56 Dose: 40 mg Polyethylene Glycol (Miralax) 17 gm PO DAILY [facility] Stop: 08/20/17 08:59 Last Admin: 06/24/17 10:01 Dose: Not Given Rifaximin (Xifaxan) 600 mg PO BID [facility] Stop: 05/06/18 16:59 Sodium Phosphate (Fleet Enema) 135 ml RC PRN PRN PRN Reason: Constipation Stop: 08/19/17 20:23 Last Admin: 06/23/17 22:48 Dose: 135 ml Tamsulosin HCl (Flomax) 0.4 mg PO HS [facility] Stop: 08/19/17 20:59 Last Admin: 06/23/17 20:33 Dose: Not Given Thiamine HCl (Vitamin B1) 100 mg PO DAILY [facility] Stop: 08/20/17 08:59 Last Admin: 06/24/17 10:01 Dose: Not Given Zolpidem Tartrate (Ambien) 5 mg PO HS PRN PRN Reason: Insomnia Stop: 08/19/17 20:19 Lab - Result Diagrams 06/26/17 09:00 06/26/17 09:00 DC lasix IVP, switch to drip, albumin infusion decrease rate ivf continue Levophed 6 mcg replace K for hospice Nutritional Asmnt/Malnutr-PDOC - Dietary Evaluation Malnutrition Findings (Please click <Entered> for more info): Nutritional Asmnt/Malnutrition Start: 06/22/17 16: 04 Text: Status: Complete Freq: Document 06/22/17 16:04 LCHENG (Rec: 06/22/17 16:23 LCHENG [id number]) Nutritional Asmnt/Malnutrition Patient General Information Nutritional Screening High Risk Diagnosis hypovolemic shock, R/O sepsis Pertinent Medical Hx/Surgical Hx psychosis, alzheimer dementia, ascites, liver cirrhosis, ileus diverticulosis Subjective Information Consult received for wound. Pt seen resting in bed at time of visit. Spoke with RN, pt now was on NPO, waiting for swallow eval. Pt received swallow eval in the afternoon, failed. ST recommended NPO. Current Diet Order/ Nutrition Support NPO Pertinent Medications D5-0.9%nx, colace, folate, culturelle, theragran, piperacillin, miralax, kcl, vit B1, vancomycin Pertinent Labs 3/5 Na 144, K 3.5, Cl 116, BUN 44, Cr 1.1, Glucose 157 Nutritional Hx/Data Height 1.78 m Height (Calculated Centimeters) 177.8 Current Weight (lbs) 75.296 kg Weight (Calculated Kilograms) 75.3 Weight (Calculated Grams) 81478.3 [place] Body Weight 150 Body Mass Index (BMI) 23.8 Weight Status Approriate GI Symptoms GI Symptoms None Last BM 3/4 Difficult in: None Usual diet at home pt was on [facility] soft chopped diet at [facility] Skin Integrity/Comment: Douglas Gabriel no wound care note at this time Current %PO Negligible < 25% Estimated Nutritional Goals BEE in Kcals: Using Current wt Calories/Kcals/Kg 25-30 Kcals Calculated 0232-5740 Protein: Using Current wt Protein g/k-1.2 Protein Calculated 68-82 Fluid: ml 1700-2040ml (1ml/kcal) Nutritional Problem 1. Problem Problem inadequate energy intake Etiology pt on NPO Signs/Symptoms: PO intake <25% Intervention/Recommendation Comments 1. Monitor NPO status. 2. If TF needed, recommend start Fibersource HN at 20ml/ hr continuous, increase 10ml/ hr q6hr to goal rate of 60ml/ hr as tolerated. This will provide 1728kcal, 78g protein, 1166ml free water, meeting 100% of nutritional needs. 3. Monitor wt, labs and skin integrity 4. F/U as high risk in 2-3 days, 06/24-06/25 Expected Outcomes/Goals Expected Outcomes/Goals 1. Pt to meet at least 75% of nutritional needs via nutrition support 2. Wt stability, skin to remain intact, labs to approach WNL.
[2017-06-27] MEDS ORDERED: Dexamethasone Sodium Phos 40 MG in Sodium Chloride 0.9% 50 ML IV SCH (09:00)
== END 2017-06-26 20:10 | DRG 871 ==
LOC: MSI 18:33 → TELE 19:38 → MSI 19:59 → TELE 20:00 → ICU 06-21 19:50
PROVIDERS: ADMIT Internal Medicine; ATTEND Internal Medicine
PROC: 5A09457 Assistance with Respiratory Ventilation, 24-96 Consecutive Hours, Continuous Positive Airway Pressure (ICD-10-PCS; principal; 2017-06-22)
PROC: 02HV33Z Insertion of Infusion Device into Superior Vena Cava, Percutaneous Approach (ICD-10-PCS; 2017-06-24)
PROC: 30233R1 Transfusion of Nonautologous Platelets into Peripheral Vein, Percutaneous Approach (ICD-10-PCS; 2017-06-25)
DX: A41.9 Sepsis, unspecified organism (principal); J69.0 Pneumonitis due to inhalation of food and vomit; J96.90 Respiratory failure, unspecified, unspecified whether with hypoxia or hypercapnia; D65 Disseminated intravascular coagulation [defibrination syndrome]; E43 Unspecified severe protein-calorie malnutrition; R65.21 Severe sepsis with septic shock; G92 Toxic encephalopathy; K56.7 Ileus, unspecified; D68.9 Coagulation defect, unspecified; L89.154 Pressure ulcer of sacral region, stage 4; R18.8 Other ascites; K57.92 Diverticulitis of intestine, part unspecified, without perforation or abscess without bleeding; N39.0 Urinary tract infection, site not specified; N17.9 Acute kidney failure, unspecified; B95.62 Methicillin resistant Staphylococcus aureus infection as the cause of diseases classified elsewhere; G30.9 Alzheimer's disease, unspecified; F02.80 Dementia in other diseases classified elsewhere, unspecified severity, without behavioral disturbance, psychotic disturbance, mood disturbance, and anxiety; F29 Unspecified psychosis not due to a substance or known physiological condition; K74.60 Unspecified cirrhosis of liver; K72.90 Hepatic failure, unspecified without coma; Y95 Nosocomial condition; I50.9 Heart failure, unspecified; R13.10 Dysphagia, unspecified; Z79.899 Other long term (current) drug therapy; Z68.36 Body mass index [BMI] 36.0-36.9, adult
CPT/HCPCS: 36415-UA; 36600-90; 71045-TC; 80048-TC; 80053-TC; 80202-TC; 81001-TC; 82140-TC; 82465-TC; 82803-TC; 82947-TC; 82948-90; 83036-90; 83605; 83735-TC; 83880-TC; 84100-TC; 84134-90; 84478-TC; 84484-TC; 85007-TC; 85025-TC; 85027-TC; 85384-TC; 85610-TC; 85730-TC; 86850-TC; 86900-TC; 86901-TC; 87086-90; 87449-90; 90799; 93307-TC; 94660; 94760; C9113; J0456; J0696; J1100; J1815; J1940; J2060; J2543; J3370; J3430; J3480; J7030; J7040; J7042; J7121; J7799; P9035; P9047; X3401; X6452; X6598; X7704; Z7610